=== PATIENT | male | born 1950 | race Caucasian/White ===

== ENCOUNTER 2018-03-14 19:28 | Emergency (ER) | payer OTHER, MEDICARE, MEDICAID, SELFPAY ==
[2018-03-14 19:29] VITALS: BP 149/89; PULSE 69; PULSE 71; RESP 17; RESP 18; TEMP 36.5; O2SAT 94; BMI 27.3
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
[2018-03-14 20:52] VITALS: BP 141/94; PULSE 49; RESP 18; O2SAT 95
== END 2018-03-14 20:55 | disposition home or self-care (01) ==
PROVIDERS: Emergency Provider Emergency Medicine; Family Provider Family Medicine; PCP Family Medicine
DX: S16.1XXA Strain of muscle, fascia and tendon at neck level, initial encounter (principal); S63.92XA Sprain of unspecified part of left wrist and hand, initial encounter; V59.40XA Driver of pick-up truck or van injured in collision with unspecified motor vehicles in traffic accident, initial encounter; Y93.9 Activity, unspecified; Y92.410 Unspecified street and highway as the place of occurrence of the external cause; Y99.9 Unspecified external cause status; Z72.0 Tobacco use; Z86.011 Personal history of benign neoplasm of the brain
CPT/HCPCS: 72125; 73130; 99282

== ENCOUNTER 2018-10-28 13:25 | Observation (INO) | payer MEDICARE, MEDICAID, SELFPAY ==
[2018-10-28] VITALS (11 sets, daily range): BP systolic 108–168; BP diastolic 79–98; PULSE 54–88; RESP 14–18; TEMP 36.4–36.9; O2SAT 92–98; BMI 27.3; BMI 27.4; BMI 26.1
--- NOTE | 2018-10-28 13:51 | RAD_ITS ---
STUDY: X-RAY CHEST REASON FOR EXAM: Male, 68 years old. Right arm weakness and left calf pain. Slurred speech. TECHNIQUE: Single AP portable view of the chest. COMPARISON: Comparison is made with prior study July 16, 2015. FINDINGS: EKG electrodes are seen. Scattered calcified granulomas. The lungs are clear. There is no demonstrated pleural abnormality. Normal size heart. Normal mediastinum and olivia. Normal visualized pulmonary arteries. There is atherosclerotic tortuosity of the aortic arch and descending thoracic aorta. There are diffuse degenerative changes of the visualized thoracic spine. Prior ORIF of a right midclavicular fracture. Healed left midclavicular fracture. There is no demonstrated abnormality of the visualized soft tissue structures of the upper abdomen. RAD/Chest 1 View (Portable) IMPRESSION: No acute abnormality is seen. Electronically Signed: Alvin Topete MD at 15:02 EST , Service support ,
--- NOTE | 2018-10-28 13:51 | EKG12_ITS ---
Test Reason : CP Blood Pressure : / mmHG Vent. Rate : 069 BPM Atrial Rate : 069 BPM P-R Int : 182 ms QRS Dur : 066 ms QT Int : 394 ms P-R-T Axes : 047 -02 090 degrees QTc Int : 422 ms Normal sinus rhythm Nonspecific T wave abnormality Low voltage QRS Abnormal ECG Confirmed by RAMONA SHETTY, GILDARDO ([id number]), publishing editor DAVON TUCKER ([id number]) on 10/30/2018 9:57:04 AM Referred By: TOÑA/REGINE Confirmed By:GILDARDO GREENE MD
--- NOTE | 2018-10-28 13:52 | VDLE_ITS ---
Reason For Study: pain RIGHT LEFT CFV is compressible, spontaneous, phasic, GSV is normal. competent and demonstrates normal CFV is compressible, spontaneous, phasic, augmentation. competent, and demonstrates normal Procedure augmentation. Exam performed portable in ED. FV is compressible, spontaneous, phasic, The exam was diagnostic. competent and demonstrates normal A preliminary report was called and/or faxed augmentation. to the pt's RN. POP V is compressible, spontaneous, phasic, competent and demonstrates normal augmentation. T/P Trunk is compressible. PTV is compressible. LT PerV is compressible. Interpretation Summary Deep veins of the left lower extremity are patent and compressible segmentally. There is no evidence of left lower extremity deep vein thrombosis. Valvular competence appears intact within the proximal deep venous system on the left . The left greater saphenous vein appears patent and compressible segmentally. Ordering Physician: Daphne Monaco Performed By: Coleman Banda RVT
--- NOTE | 2018-10-28 13:52 | CT_ITS ---
STUDY: CT BRAIN WITHOUT CONTRAST REASON FOR EXAM: Male, 68 years old. Right arm weakness. RADIATION DOSAGE (If Supplied By Facility): CTDIvol = ( 44.99 ) mGy, DLP = ( 745.49 ) mGycm TECHNIQUE: Transaxial CT imaging of the brain was performed without administration of intravenous contrast material. Coronal and sagittal reconstructions were performed. Individualized dose optimization techniques were used for this CT. COMPARISON: 03/11/2009. FINDINGS: Normal soft tissue structures. Left retromastoid craniectomy and cranioplasty were described previously. 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 Normal ventricles and cisterns. Normal white matter tracts of the cerebral hemispheres. Normal basal ganglia and thalami. Normal brainstem. Normal cerebellum. There is no intracranial hemorrhage. There are no findings of an acute ischemic infarction. Mucosal thickening with small air-fluid level in the left maxillary sinus suggesting acute left sinusitis. Moderate amount of mucosal thickening in the anterior ethmoid sinus. Normal right matter sinus. Normal sphenoid sinus. Small air-fluid level and mucosal thickening in the left frontal sinus. Normal right frontal sinus. CT/Brain/Head without Contrast IMPRESSION: 1. Cystic encephalomalacia along the posterior aspect of the left inferior temporal lobe gyrus is presumably postoperative. This is underneath the left retromastoid craniectomy and cranioplasty. 2. No CT evidence of intracranial bleeding or acute ischemic infarct. 3. Air-fluid levels in the left frontal sinus and left maxillary sinus and mucosal thickening in the left frontal sinus, left maxillary sinus and the anterior ethmoid sinus. They are suggestive of acute sinusitis. This is a new finding when compared to 03/11/2009. . Electronically Signed: Luis Canchola MD at 14:47 EST , Service support ,
[2018-10-28 14:21] LABS: Absolute Lymphocyte Count 2.09 X10^3/ul (0.83-4.51); Absolute Neutrophil Count 6.3 X10^3/uL (2.0-7.7); Basophil# 0.06 X10^3/uL; Basophil% 0.6 % (0-1); Eosinophil# 0.23 X10^3/uL; Eosinophils% 2.4 % (0-5); Hematocrit 42.4 % (40-54); Hemoglobin 14.8 g/dl (13.0-16.5); Lymphocyte # 2.09 X10^3/ul (4.0); Mean Corp Hgb Conc 34.9 g/gl (32-36); Mean Corpuscular Hgb 32.5 pg (27.0-32.0); Mean Corpuscular Volume 93.2 fL (80-94); Mean Platelet Vol. 9.8 fl (6.2-12.0); Monocyte# 0.77 X10^3/uL; Monocyte% 8.1 % (0-10); Neutrophil # 6.33 X10^3/uL (2.7-7.7); Neutrophil % 66.8 % (47-70); POSITIVE COUNT NO; POSITIVE DIFFERENTIAL NO; POSITIVE MORPHOLOGY NO; Platelet Count 234 K/mm3 (150-450); RBC Distribution Width CV 12.7 % (11.6-14.6); RBC Distribution Width SD 42.2 fl (35.1-43.9); Red Blood Count 4.55 M/mm3 (4.6-6.2); White Blood Count 9.5 K/mm3 (4.4-11.0)
[2018-10-28 14:32] LABS: Anion Gap 6 (5-15); BUN 19 mg/dL (7-18); BUN/Creat Ratio 19.7 RATIO (10-20); Calcium,Total 8.6 mg/dL (8.5-10.1); Chloride 108 mmol/L (98-107); Creatinine, Serum 0.96 mg/dL (0.70-1.30); EST Glomerular Filtration Rate 83 mL/min (>60); Est Glom Filt Rate - Afr Amer 100 mL/min (>60); Estimated Creatinine Clearance 65.84 ml/min; Glucose 109 mg/dL (74-106); Potassium 4.3 mmol/L (3.5-5.1); Sodium Level 142 mmol/L (136-145)
[2018-10-28] MEDS: Aspirin 81 MG TAB.CHEW 324 MG PO (14:37)
--- NOTE | 2018-10-28 14:48 | ED.VISSUMM ---
- ER Visit Summary Date of Service: 10/28/18 Chief Complaint: Chest pain, right arm weakness History of Present Illness: The patient is a 68 M presenting with right arm weakness. He states this started on Sunday. States he started having pain in his left calf and then developed right hand weakness. Right hand weakness persisted through yesterday. He states that people have been telling him that he has slurred speech since yesterday. Today he began having chest pain and shortness of breath. He is a smoker. He denies medical problems. Physical Examination: Vitals are stable. Patient is afebrile. Alert no acute distress. HEENT exam is unremarkable. Neck is supple. Lungs are clear and equal bilaterally. Heart is regular rate and rhythm. Abdomen is soft nontender nondistended. Extremities are unremarkable. Skin is warm and dry. No focal neurologic deficit. NIH 0 Remainder of exam is unremarkable. Emergency Department Course and Treatment: Patient was given aspirin on arrival. EKG is sinus rate of 69. CBC, chemistries unremarkable. Troponin is negative. Ultrasound left lower extremity shows no evidence of DVT. Chest x-ray shows no acute process. CT head shows cystic encephalomalacia along the posterior aspect of the left inferior temporal lobe gyrus is presumably postoperative. This is underneath the left retromastoid craniectomy and cranioplasty. No CT evidence of intracranial bleeding or acute ischemic infarct. Air-fluid levels in the left frontal sinus and left maxillary sinus and mucosal thickening in the left frontal sinus, left maxillary sinus and the anterior ethmoid sinus. They are suggestive of acute sinusitis. This is a new finding when compared to 03/11/2009. Patient's NIH is 0. He is currently chest pain-free. Discussed with the hospitalist for admission. Disposition: Admission Impression: Chest pain, TIA This note was generated with [employer] dictation software. It may contain incorrect words, spelling, and punctuation that were not noted in review of the chart prior to signing ED Disposition - Plan for ED Patient: Referrals: Luis Bateman III, MD [Primary Care Provider] -
--- NOTE | 2018-10-28 15:06 | NURSING ---
PCU OBS TIA, CP EMELIA
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
--- NOTE | 2018-10-28 16:13 | MRI_ITS ---
HISTORY: CVAchest pain, rt arm weakness, slurred speech since 10/26/18, prev brain [id number] aterial venous angioma TECHNIQUE: Routine non-contrast [id number] Carotid MR angiogram protocol was performed without gadolinium. 3D reconstructions were reviewed. Nascet criteria using the distal ICAs for comparison were used for evaluation of stenoses. IV Contrast dosage and agent: None. COMPARISON: None FINDINGS: # of images incl. paperwork: 535 AORTIC ARCH AND BRANCHES: Mostly obscured. RIGHT CCA: No occlusion, significant stenosis or dissection of the visualized portions, obscured proximally. RIGHT ICA: No occlusion, significant stenosis or dissection. LEFT CCA: No occlusion, significant stenosis or dissection of the visualized portions, obscured proximally. LEFT ICA: No occlusion, significant stenosis or dissection. RIGHT VERTEBRAL ARTERY: No occlusion, significant stenosis or dissection. Right dominant. LEFT VERTEBRAL ARTERY: No occlusion, significant stenosis or dissection. Left hypoplastic. No evidence of acute injury of the major arterial system of the neck. No evidence of occlusion at the visualized portions of the major arterial system of the head. MRI/MRA Neck without Contrast IMPRESSION: Negative non-contrast carotid MR angiogram. at 2009 Reported and signed by: Andre Ervin MD Electronically Signed: Andre Ervin, at 20:08 EST Tel , Service support ,
--- NOTE | 2018-10-28 16:13 | EKG12_ITS ---
Test Reason : Blood Pressure : / mmHG Vent. Rate : 057 BPM Atrial Rate : 057 BPM P-R Int : 190 ms QRS Dur : 070 ms QT Int : 430 ms P-R-T Axes : 043 000 094 degrees QTc Int : 418 ms Sinus bradycardia Nonspecific T wave abnormality Abnormal ECG Confirmed by RAMONA SHETTY, GILDARDO ([id number]), assistant film editor DAVON TUCKER ([id number]) on 10/30/2018 10:43:04 AM Referred By: GERALDO Confirmed By:GILDARDO GREENE MD
--- NOTE | 2018-10-28 16:13 | MRI_ITS ---
HISTORY: CVAchest pain, rt arm weakness, slurred speech since 10/26/18, prev brain [id number] aterial venous angioma TECHNIQUE: Multiplanar and multisequence MR images of the brain were obtained without gadolinium. IV Contrast dosage and agent: None. COMPARISON: CT brain 10/28/18. FINDINGS: # of images incl. paperwork: 278 No acute infarct, acute hemorrhage, or mass. Again demonstrated is encephalomalacia posterior aspect left middle and inferior temporal gyri with overlying chronic craniotomy. Otherwise brain volume and signal is within normal limits for age. No midline shift or hydrocephalus. Major flow voids preserved. Again demonstrated is acute on chronic appearing left frontal, ethmoid and maxillary sinusitis, and opacification of the majority of the left mastoid air cells. MRI/Brain without Contrast IMPRESSION: No acute intracranial findings. Left temporal encephalomalacia with overlying craniotomy unchanged. Again demonstrated is acute on chronic appearing left frontal, ethmoid and maxillary sinusitis, and opacification of the majority of the left mastoid air cells. at 2003 Reported and signed by: Andre Ervin MD Electronically Signed: Andre Ervin, at 20:02 EST Tel , Service support ,
[2018-10-28 16:58] LABS: Hemoglobin A1c 5.9 % (4.2-6.3)
--- NOTE | 2018-10-28 18:13 | NURSING ---
Pt down for MRI.
--- NOTE | 2018-10-28 19:48 | NURSING ---
pt just returned from MRI. will get assessment and NIH now.
[2018-10-28] MEDS: Famotidine 20 MG Tablet PO (22:23)
[2018-10-28] MEDS: Enoxaparin 40 MG/0.4 ML Syringe SC (22:23)
[2018-10-28] MEDS: Atorvastatin Calcium 80 MG Tablet PO (22:23)
[2018-10-29] VITALS (11 sets, daily range): BP systolic 121–138; BP diastolic 73–80; PULSE 52–73; RESP 16–20; TEMP 36.6–36.8; O2SAT 94–95; BMI 26.1
[2018-10-29] MEDS: 0.9% Normal Saline 1,000 ML 100 ML IV ×3 (00:03→21:43)
[2018-10-29] MEDS: Acetaminophen 325 MG Tablet 650 MG PO ×3 (04:09→16:49)
--- NOTE | 2018-10-29 05:55 | ECHOD_ITS ---
Reason For Study: TIA/CVA Procedure This was a 2D Doppler, Color Flow transthoracic echocardiogram. The exam was of adequate technical quality. Exam performed portable in patient room. Left Ventricle Normal LV size. Left ventricular systolic function is normal. The estimated ejection fraction is 65 %. No evidence for diastolic dysfunction. No regional wall motion abnormalities noted. Right Ventricle Normal RV size. Normal systolic function. Atria Normal left atrium. Normal right atrium. Faintly positive agitated saline contrast study for right to left interatrial shunt compatible with a small PFO versus ASD. Mitral Valve There is no mitral annular calcification. Normal mitral valve. Trivial mitral valve insufficiency. Tricuspid Valve Normal tricuspid valve. Trivial tricuspid valve insufficiency. Aortic Valve Trisinus/trileaflet aortic valve. Mild focal aortic valve calcification. Pulmonic Valve The pulmonic valve is not well visualized. Great Vessels Normal sized aortic root. Calcified aortic root. Pericardium/Pleural No pericardial effusion. Medication Performed a rapid injection of agitated mix of 9 cc saline and 1cc air to assess for atrial septal defect. MMode/2D Measurements & Calculations LVIDd: 3.4 cm IVSd: 1.2 cm Ao root diam: 3.6 cm LVIDs: 1.7 cm LVPWd: 1.1 cm LA dimension: 3.5 cm RVDd: 3.1 cm FS: 49.5 % LAV(MOD-bp): 49.3 ml LA A4 area: 18.0 cm2 RA A4 area: 14.3 cm2 LAV(MOD-bp) Indexed: 27.7 ml/m2 LAV(MOD-sp2): 53.5 ml LAV(MOD-sp4): 46.2 ml Time Measurements MV dec time: 0.29 sec Doppler Measurements & Calculations MV E max sebas: 69.2 cm/sec Lat Peak E' Sebas: 10.7 cm/sec Med Peak E' Sebas: 8.1 cm/sec MV A max sebas: 111.5 cm/sec E/E' lat: 6.5 E/E' med: 8.6 MV E/A: 0.62 MV V2 max: 105.9 cm/sec MV P1/2t max sebas: 96.3 cm/sec Ao V2 max: 158.9 cm/sec MV max P.5 mmHg MV P1/2t: 99.6 msec Ao max P.1 mmHg MV V2 mean: 59.5 cm/sec MV dec slope: 283.1 cm/sec2 MV mean P.6 mmHg MV V2 VTI: 38.0 cm MVA(P1/2t): 2.2 cm2 LV V1 max: 148.1 cm/sec PA V2 max: 86.7 cm/sec LV V1 max P.8 mmHg Interpretation Summary Left ventricular systolic function is normal. The estimated ejection fraction is 65 %. Trivial mitral valve insufficiency. Trivial tricuspid valve insufficiency. Mild focal aortic valve calcification. Calcified aortic root. No evidence for diastolic dysfunction. Faintly positive agitated saline contrast study for right to left interatrial shunt compatible with a small PFO versus ASD. Ordering Physician: Roberta York Referring Physician: WOODROW Bateman M.D. Performed By: Mikael Goznalez RCS
[2018-10-29 06:43] LABS: Hematocrit 39.5 % (40-54); Hemoglobin 13.7 g/dl (13.0-16.5); Mean Corp Hgb Conc 34.7 g/gl (32-36); Mean Corpuscular Hgb 32.5 pg (27.0-32.0); Mean Corpuscular Volume 93.8 fL (80-94); Mean Platelet Vol. 9.7 fl (6.2-12.0); Platelet Count 212 K/mm3 (150-450); RBC Distribution Width CV 12.4 % (11.6-14.6); RBC Distribution Width SD 41.7 fl (35.1-43.9); Red Blood Count 4.21 M/mm3 (4.6-6.2); White Blood Count 9.6 K/mm3 (4.4-11.0)
[2018-10-29 06:47] LABS: Scan Indicated on CBC? Y/N NO
[2018-10-29 07:03] LABS: AST(SGOT) 23 U/L (15-37); Alanine Aminotransfer ALT/SGPT 43 U/L (16-61); Alkaline Phosphatase 65 U/L (45-117); Anion Gap 7 (5-15); BUN 21 mg/dL (7-18); BUN/Creat Ratio 24.4 RATIO (10-20); Calcium,Total 8.1 mg/dL (8.5-10.1); Chloride 112 mmol/L (98-107); Cholesterol 102 mg/dL (200); Creatinine, Serum 0.86 mg/dL (0.70-1.30); EST Glomerular Filtration Rate 95 mL/min (>60); Est Glom Filt Rate - Afr Amer 115 mL/min (>60); Globulin 2.9 g/dL (2.2-4.2); Glucose 106 mg/dL (74-106); High Density Lipoprotein 25 mg/dL; Potassium 3.9 mmol/L (3.5-5.1); Protein, Total 5.9 g/dL (6.4-8.2); Sodium Level 144 mmol/L (136-145); Thyroid Stim Hormone (TSH) 2.53 uIU/mL (0.358-3.74); Triglycerides 137 mg/dL; Very Low Density Lipoprotein 27 mg/dL (5-40)
[2018-10-29] MEDS: Aspirin E.C. 81 MG Tablet PO (08:10)
[2018-10-29] MEDS: Famotidine 20 MG Tablet PO ×2 (10:10→21:41)
[2018-10-29] MEDS: Enoxaparin 40 MG/0.4 ML Syringe SC (10:10)
--- NOTE | 2018-10-29 14:06 | MRI_ITS ---
HISTORY: RUE NUMBNESS AND TINGLING, WEAKNESS EXAM/TECHNIQUE: MR Spine Cervical W/O Contrast: COMPARISON: CT cervical spine 03/14/18. FINDINGS: # of images incl. paperwork: 232 No fracture or acute signal changes in the vertebrae. Normal signal of the cervical spinal cord. Mild 2 mm degenerative anterolisthesis of C4 on C5 unchanged. Alignment otherwise anatomic. Multilevel prominent disc and left C2-5 facet degeneration similar to prior. At C2-3, disc osteophyte complex and degenerative buckling of ligamentum flavum cause only mild narrowing. At C3-4, disc osteophyte complex and degenerative buckling of the ligamentum flavum causes only mild spinal canal narrowing. Uncovertebral joint greater than facet osteophytes cause high-grade left and mild right foraminal narrowing. At C4-5, mild degenerative anterolisthesis causes only mild spinal canal narrowing. Left uncovertebral joint and facet osteophytes cause high-grade left foraminal narrowing. Only mild right foraminal narrowing. At C5-6, small disc osteophyte complex causes mild spinal canal narrowing. Uncovertebral and facet joint osteophytes cause high-grade right and moderate left foraminal narrowing. At C6-7, small disc osteophyte complex causes only mild spinal canal and bilateral foraminal narrowing. At C7-T1, diffuse disc bulge causes only mild spinal canal and bilateral foraminal narrowing. MRI/Spine Cervical (Routine) IMPRESSION: High-grade right foraminal narrowing at C5-6. If there is right C6 radiculopathy this might be the cause. Otherwise foraminal narrowing is more prominent on the left as outlined above. at 0124 Reported and signed by: Andre Ervin MD Electronically Signed: Andre Ervin, at 1:23 EST Tel , Service support ,
--- NOTE | 2018-10-29 14:15 | CON.PCM_ITS ---
Problem List (1) Right hand weakness Status: Acute Reason for Consult Date of Consultation: 10/29/18 Reason for Consultation: Right hand weakness History of Present Illness: The patient is a 68 year old M with PMH AV angioma s/p craniotomy in 1996, migraine, tobacco abuse admitted with right hand/arm weakness. Per patient when he was sleeping Sunday morning (10/27/18) when he had Aaron horse in the left leg and he woke up and found his right hand was weak, he could not hold objects with the right hand, but denied any facial weakness, or leg weakness, denies any dizziness, visual disturbance or sensory loss. He was told that he may have had some slurred speech but he did not think he had slurred speech. He lives alone, does drive, denies any frequent falls. Per patient his right hand weakness has been improving but still is not back to baseline. He complaints of neck pain but denies any radicular symptoms, per patient he had kyphoplasty and fractures in the lower back in the past. Denies any urinary incontinence. MRI brain done on admission did not show any acute stroke, reported to show left temporal encephalomalacia with overlying craniotomy from previous surgery, MRA head/neck did not show any hemodynamically significant stenosis or occlusion. [] Past Medical History Past Medical History (Chronic Problems): Chronic Problems Tobacco use (Chronic) Angioma (Chronic) Allergies codeine Allergy (Verified 10/28/18 13:26) Hives hydrocodone bitartrate [From Vicodin] Allergy (Verified 10/28/18 13:26) Hives Home Medications: Ambulatory Orders Medication Instructions Recorded NK 10/28/18 Surgical History: - - Craniotomy for resection of angioma, right collar bone surgery x3. 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 Drugs: None - *Family History Maternal History Items: - - Patient notes that his mother and father lived into their 90s and were relatively healthy with no history of diabetes, heart disease, cancer. Paternal History Items: - - Patient notes that his mother and father lived into their 90s and were relatively healthy with no history of diabetes, heart disease, cancer. Review of Systems Constitutional: Reports: - - Complete ROS negative except as documented in HPI Patient Problems: Active and Suspected Problems TIA (transient ischemic attack) (Acute) Chest pain (Acute) Right hand weakness (Acute) - Physical Exam General: Alert HEENT: Normocephalic Neck: Supple Lungs: Normal air movement Cardiovascular: Normal S1, Normal S2 Abdomen: Bowel Sounds Present Extremities: No cyanosis Neurological: - - consious, alert, AoAx3, CN 2-12 grossly intact, power 5/5 left UE/LE, right LE, 5/5 right proximal flexion/extension 5/5, elbow extension/flexion 5/5, wrist flexion/extension 4/5, distal small muscle of hand weakness, 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, 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/L 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, reflexes + B/L B/S/T/K/A, gait deferred Psych/Mental Status: Normal Affect Vital Signs Temp Pulse Resp BP Pulse Ox 97.9 F 62 16 131/77 H 94 10/29/18 08:00 10/29/18 10:41 10/29/18 08:00 10/29/18 08:00 10/29/18 11:00 Oxygen Delivery Method Room Air Weight: 71.1 kg Body Mass Index (BMI) 26.1 Intake and Output for Last 24 Hours 10/27/18 10/28/18 10/29/18 23:59 23:59 23:59 Intake Total 240 / 240 1602 / 1602 Output Total 650 / 650 Balance 240 / 240 952 / 952 Laboratory Tests Past 24 Hrs 10/28/18 10/28/18 10/28/18 14:00 14:00 14:00 WBC 9.5 RBC 4.55 L Hgb 14.8 Hct 42.4 MCV 93.2 MCH 32.5 H MCHC 34.9 RDW 12.7 RDW Differential 42.2 Plt Count 234 MPV 9.8 Immature Gran % (Auto) 0.100 Neut % (Auto) 66.8 Lymph % (Auto) 22.0 Pershing % (Auto) 8.1 Eos % (Auto) 2.4 Baso % (Auto) 0.6 Absolute Neuts (auto) 6.3 Absolute Lymphs (auto) 2.09 Total Counted Not Reportable Sodium 142 Potassium 4.3 Chloride 108 H Carbon Dioxide 28.0 Anion Gap 6 BUN 19 H Creatinine 0.96 Estim Creat Clear Calc 65.84 Est GFR (MDRD) Af Amer 100 Est GFR (MDRD) Non-Af 83 BUN/Creatinine Ratio 19.7 Glucose 109 H Hemoglobin A1c Calcium 8.6 Magnesium 2.0 Total Bilirubin AST ALT Alkaline Phosphatase Troponin I < 0.015 Total Protein Albumin Globulin Albumin/Globulin Ratio Triglycerides Cholesterol LDL Cholesterol VLDL Cholesterol HDL Cholesterol TSH 10/28/18 10/28/18 10/28/18 14:00 17:00 19:50 WBC RBC Hgb Hct MCV MCH MCHC RDW RDW Differential Plt Count MPV Immature Gran % (Auto) Neut % (Auto) Lymph % (Auto) Pershing % (Auto) Eos % (Auto) Baso % (Auto) Absolute Neuts (auto) Absolute Lymphs (auto) Total Counted Sodium Potassium Chloride Carbon Dioxide Anion Gap BUN Creatinine Estim Creat Clear Calc Est GFR (MDRD) Af Amer Est GFR (MDRD) Non-Af BUN/Creatinine Ratio Glucose Hemoglobin A1c 5.9 Calcium Magnesium Total Bilirubin AST ALT Alkaline Phosphatase Troponin I < 0.015 < 0.015 Total Protein Albumin Globulin Albumin/Globulin Ratio Triglycerides Cholesterol LDL Cholesterol VLDL Cholesterol HDL Cholesterol TSH 10/29/18 10/29/18 06:10 06:10 WBC 9.6 RBC 4.21 L Hgb 13.7 Hct 39.5 L MCV 93.8 MCH 32.5 H MCHC 34.7 RDW 12.4 RDW Differential 41.7 Plt Count 212 MPV 9.7 Immature Gran % (Auto) Neut % (Auto) Lymph % (Auto) Pershing % (Auto) Eos % (Auto) Baso % (Auto) Absolute Neuts (auto) Absolute Lymphs (auto) Total Counted Sodium 144 Potassium 3.9 Chloride 112 H Carbon Dioxide 25.0 Anion Gap 7 BUN 21 H Creatinine 0.86 Estim Creat Clear Calc 73.50 Est GFR (MDRD) Af Amer 115 Est GFR (MDRD) Non-Af 95 BUN/Creatinine Ratio 24.4 H Glucose 106 Hemoglobin A1c Calcium 8.1 L Magnesium Total Bilirubin 0.40 AST 23 ALT 43 Alkaline Phosphatase 65 Troponin I Total Protein 5.9 L Albumin 3.0 L Globulin 2.9 Albumin/Globulin Ratio 1.0 Triglycerides 137 Cholesterol 102 LDL Cholesterol 50 VLDL Cholesterol 27 HDL Cholesterol 25 L TSH 2.53 Assessment/Plan All Active Problems TIA (transient ischemic attack) (Acute) Chest pain (Acute) Right hand weakness (Acute) The patient is a 68 year old M with PMH AV angioma s/p craniotomy in 1996, migraine, tobacco abuse admitted with right hand/arm weakness. Per patient when he was sleeping Sunday morning (10/27/18) when he had Aaron horse in the left leg and he woke up and found his right hand was weak, he could not hold objects with the right hand, but denied any facial weakness, or leg weakness, denies any dizziness, visual disturbance or sensory loss. He was told that he may have had some slurred speech but he did not think he had slurred speech. He lives alone, does drive, denies any frequent falls. Per patient his right hand weakness has been improving but still is not back to baseline. He complaints of neck pain but denies any radicular symptoms, per patient he had kyphoplasty and fractures in the lower back in the past. Denies any urinary incontinence. MRI brain done on admission did not show any acute stroke, reported to show left temporal encephalomalacia with overlying craniotomy from previous surgery, MRA head/neck did not show any hemodynamically significant stenosis or occlusion Impression Right hand weakness- r/o peripheral etiology Plan -MRI brain and MRA head/neck reviewed -Check MRI C spine w/o contrast and MRI Brachial plexus w/w/o contrast -EMG/NCS right UE in 3-4 weeks -Physical therapy for right hand weakness -Fall precautions -Further medical management -Follow up with Neurology in 3-4 weeks -Please call with questions if any -Thank you for allowing us to participate in patient's care and management Code Visit Inpatient E&M: [id number] Init Hosp L3
--- NOTE | 2018-10-29 14:48 | MRI_ITS ---
HISTORY: RUE NUMBNESS AND TINGLING, WEAKNESS EXAM/TECHNIQUE: MR Brachial Plexus WO/W Contrast: 7 cc Gadavist administered intravenously. COMPARISON: Chest radiograph 10/28/18. CT cervical spine 03/14/18. FINDINGS: # of images incl. paperwork: 264 Normal contour and signal of the right brachial plexus. No abnormal and in spine or evidence of mass. Status post right clavicle ORIF. Please see MRI cervical spine report dictated separately. MRI/Chest W/WO Contrast IMPRESSION: No etiology for right upper extremity symptoms identified in the brachial plexus. at 0113 Reported and signed by: Andre Ervin MD Electronically Signed: Andre Ervin, at 1:12 EST Tel , Service support ,
--- NOTE | 2018-10-29 15:34 | CASEMGMT ---
Per Dr. Kaplan, pt to be set up with OP therapy at this time and pt will most likely be discharged today. Referral to [facility] at this time and this RN CM to room to speak with pt regarding OP therapy and to have [facility]WE[facility] form signed at this time and pt is out of the dept for testing at this time. This RN CM gave OP therapy order to Sandy RN at this time, voices understanding and states she will give to pt when he returns. SStnorman HERNANDEZ CM
[2018-10-29] MEDS: Atorvastatin Calcium 80 MG Tablet PO (21:41)
[2018-10-30] VITALS (7 sets, daily range): BP systolic 136–158; BP diastolic 85–91; PULSE 54–67; RESP 16–18; TEMP 36.3–36.9; O2SAT 94
[2018-10-30] MEDS: 0.9% Normal Saline 1,000 ML 100 ML IV (06:50)
[2018-10-30] MEDS: Enoxaparin 40 MG/0.4 ML Syringe SC (09:24)
[2018-10-30] MEDS: Aspirin E.C. 81 MG Tablet PO (09:24)
[2018-10-30] MEDS: Famotidine 20 MG Tablet PO (09:25)
--- NOTE | 2018-10-30 10:13 | DCINST_ITS ---
- Discharge Diagnoses Current Active Problems: Current Active and Chronic Problems TIA (transient ischemic attack) (Acute) Chest pain (Acute) Tobacco use (Chronic) Angioma (Chronic) Right hand weakness (Acute) You will use the following diet at home:: No restrictions Your food should be the consistency of: Regular Your liquids should be the consistency of: Regular/Thin Discharge Activity: No Restrictions Call your doctor if you observe: Fever of 101 or Higher, - - increasing weakness of the R arm, uncontrollable pain R arm. Instructions: ED Cervical Radiculopathy Additional Instructions: You have a pinched nerve in your neck that is causing the weakness and the numbness in the R arm. You have a lot af arthritis in the spine and bone spurs. I have started you on Prednisone which is a steroid. Steroids are powerful anti-inflammatories and can redeuce the swelling around the nerve root and hopefully improve your symptoms somewhat. You will take the prednisone for a period of 10 days and then stop. If the pain/weakness/numbness recur then you may be a candidate for an epidural injection of steroids.......this shot can last for 3 months. I have also started you on a medication called Meloxicam which is an anti-inflammatory. You will take the Meloxicam once daily with food and I have given you a prescription for 1 months worth. I recommend you follow up with a neurosurgeon or a orthopedic surgeon who works on the cervical spine to be evaluated for possible surgery IF the weakness does not improve or gets worse..........If the weakness goes on for more than 6 weeks you may not get all the strength back. We are referring you for Physical therapy and occupational therapy to help you. The [facility] does a lot of spine surgeries. You may need a referral from your primary care doctor. Allergies/Adverse Reactions: Allergies codeine Allergy (Verified 10/28/18 13:26) Hives hydrocodone bitartrate [From Vicodin] Allergy (Verified 10/28/18 13:26) Hives Medications to take at Discharge Meloxicam [Mobic] 15 mg PO DAILY #30 tablet 10/30/18 predniSONE tablet 60 mg PO DAILY@0800 #27 tablet 10/30/18 The following prescriptions were given: Meloxicam [Mobic] 15 mg PO DAILY #30 tablet predniSONE tablet 60 mg PO DAILY@0800 #27 tablet Primary Care Physician: Luis Bateman III, MD [Primary Care Provider] - Please follow up with your Primary Care Physician in: 7 days Test Results: Test results from this visit will be discussed in further detail at your follow- up appointment, if applicable.
--- NOTE | 2018-10-30 10:14 | PCM.DC.SUM ---
Discharge Date and Diagnosis Date of Admission: 10/28/18 Date of Discharge: 10/30/18 - Primary Discharge Diagnosis Active and Suspected Problems TIA (transient ischemic attack) (Acute)- ruled out Acute Radiculopathy RUE due to impingement at C5-C6 on the right Chest pain (Acute) - Secondary Discharge Diagnosis Chronic Problems Tobacco use (Chronic) Angioma (Chronic) - S/P craniotomy ? small PFO or ASD Hospital Course and Treatment Imaging Results: Clinical Impression(s) from Imaging Studies Chest X-Ray 10/28/18 13:51 IMPRESSION: No acute abnormality is seen. Electronically Signed: Alvin Topete MD at 15:02 EST , Service support , Brain CT 10/28/18 13:52 IMPRESSION: 1. Cystic encephalomalacia along the posterior aspect of the left inferior temporal lobe gyrus is presumably postoperative. This is underneath the left retromastoid craniectomy and cranioplasty. 2. No CT evidence of intracranial bleeding or acute ischemic infarct. 3. Air-fluid levels in the left frontal sinus and left maxillary sinus and mucosal thickening in the left frontal sinus, left maxillary sinus and the anterior ethmoid sinus. They are suggestive of acute sinusitis. This is a new finding when compared to 03/11/2009. . Electronically Signed: Luis Canchola MD at 14:47 EST , Service support , Brain MRI 10/28/18 16:13 IMPRESSION: No acute intracranial findings. Left temporal encephalomalacia with overlying craniotomy unchanged. Again demonstrated is acute on chronic appearing left frontal, ethmoid and maxillary sinusitis, and opacification of the majority of the left mastoid air cells. at 2003 Reported and signed by: Andre Ervin MD Electronically Signed: Andre Ervin, at 20:02 EST Tel , Service support , Head MRA 10/28/18 16:13 IMPRESSION: Unremarkable MRA head. at 2006 Reported and signed by: Andre Ervin MD Electronically Signed: Andre Ervin, at 20:05 EST Tel , Service support , ADDENDUM: 10/29/18 1509 IMPRESSION: Normal MRA of the head Electronically Signed: Luis Canchola MD at 15:02 EST , Service support , Neck MRA 10/28/18 16:13 IMPRESSION: Negative non-contrast carotid MR angiogram. at 2009 Reported and signed by: Andre Ervin MD Electronically Signed: Andre Ervin, at 20:08 EST Tel , Service support , Cervical Spine MRI 10/29/18 14:06 IMPRESSION: High-grade right foraminal narrowing at C5-6. If there is right C6 radiculopathy this might be the cause. Otherwise foraminal narrowing is more prominent on the left as outlined above. at 0124 Reported and signed by: Andre Ervin MD Electronically Signed: Andre Ervin, at 1:23 EST Tel , Service support , Chest MRI 10/29/18 14:48 IMPRESSION: No etiology for right upper extremity symptoms identified in the brachial plexus. at 0113 Reported and signed by: Andre Ervin MD Electronically Signed: Andre Ervin, at 1:12 EST Tel , Service support , Dr. Gee-neurology Operations: None Procedures: 2-D Echocardiogram - Interpretation Summary Left ventricular systolic function is normal. The estimated ejection fraction is 65 %. Trivial mitral valve insufficiency. Trivial tricuspid valve insufficiency. Mild focal aortic valve calcification. Calcified aortic root. No evidence for diastolic dysfunction. Faintly positive agitated saline contrast study for right to left interatrial shunt compatible with a small PFO versus ASD. Summary of Care Provided: The patient is a 68-year-old man with a history of craniotomy for AV angioma in 1996 and tobacco dependence resented to the emergency department at [facility] on 10/28/2018 complaining of right upper extremity weakness and midsternal chest pressure the previous evening. See if CT of the brain in the emergency department showed encephalomalacia secondary to prior surgery but was otherwise unremarkable. NIH in the emergency department was 0. EKG revealed no suspicious ST or T wave changes and the troponin was within normal limits. He was admitted to a monitored bed on PCU for evaluation for TIA and chest pain. Brain MRI showed no acute intracranial findings. MRA of the head and neck were negative. Ultrasound of the lower extremities was negative for DVT. Echocardiogram showed normal wall motion with an ejection fraction of 65% and no significant valvular heart disease. There was no evidence of diastolic dysfunction. There was a faintly positive agitated saline contrast study for right to left intra-atrial shunt compatible with a small PFO versus ASD. The weakness in the right upper extremity improved somewhat during the admission however since the W/U for CVA was negative Dr. Gee was consulted and he ordered a MRI of the brachial plexus and the cervical spine. The brachial plexus MRI was unremarkable. The MRI of the cervical spine showed high-grade right foraminal narrowing at C5-6. He was given a RX for Meloxicam and Prednisone and was referred for OP PT at [facility]. He will follow up with Dr. Luis Bateman in 7 days in the office. If the Prednisone is effective he may benefit from a referral to pain management for an epidural. He had no CP in the hospital and telemetry showed no significant dysrhythmia/ectopy. If his chest pain recurs he can be referred for an outpatient stress test. - Physical Exam General: Alert, Oriented x3, Cooperative, No apparent distress HEENT: Atraumatic, PERRLA, EOMI, Normocephalic Oral: Moist Mucosa Neck: Supple, Negative Carotid Bruits, No Nodes, No Nuchal Rigidity, Trachea Midline Lungs: Clear to auscultation Cardiovascular: Regular rate, Regular Rhythm, Normal S1, Normal S2, No Ectopic Activity, No rub noted, No Gallop Abdomen: Bowel Sounds Present, Soft, Non Tender, Non-Distended Extremities: No clubbing, No cyanosis, No edema Skin: No rashes, No breakdown Neurological: Cranial nerves II-XII grossly intact, - - decreased floor assembler strength R hand and also decreased ability to extend the wrist Psych/Mental Status: Appropriate - Physical Exam Vital Signs Temp Pulse Resp BP Pulse Ox 97.7 F L 58 L 18 142/85 H 94 10/30/18 05:10 10/30/18 07:58 10/30/18 05:10 10/30/18 05:10 10/30/18 07:23 Oxygen Delivery Method Room Air Weight: 156 lb 11.979 oz Body Mass Index (BMI) 26.1 Intake and Output for Last 24 Hours 10/28/18 10/29/18 10/30/18 23:59 23:59 23:59 Intake Total 240 / 240 3695 / 3695 857 / 857 Output Total 1250 / 1250 895 / 895 Balance 240 / 240 2445 / 2445 -38 / -38 Discharge Activity: No Restrictions Call your doctor if you observe: Fever of 101 or Higher, - - increasing weakness of the R arm, uncontrollable pain R arm. Home Medications: Medications to take at Discharge Meloxicam [Mobic] 15 mg PO DAILY #30 tablet 10/30/18 predniSONE tablet 60 mg PO DAILY@0800 #27 tablet 10/30/18 Following Prescrptions Were Given to Patient: Meloxicam [Mobic] 15 mg PO DAILY #30 tablet predniSONE tablet 60 mg PO DAILY@0800 #27 tablet Primary Care Physician: Luis Bateman III, MD [Primary Care Provider] - Please follow up with your Primary Care Physician in: 7 days Patient Instructions: ED Cervical Radiculopathy Disposition: Home Minutes spent on discharge:: 30 Patient Condition:: Stable Medical Necessity - Tobacco Use Smoking Status: Current every day smoker Tobacco Use: Cigarettes Meaningful Use Info Meaningful Use Diagnoses (Choose all that apply): None applicable Code Visit OBSV E&M: 65479 Observation care discharge
--- NOTE | 2018-10-30 10:19 | DS.PCM_ITS ---
Discharge Date and Diagnosis Date of Admission: 10/28/18 Date of Discharge: 10/30/18 - Primary Discharge Diagnosis Active and Suspected Problems TIA (transient ischemic attack) (Acute)- ruled out Acute Radiculopathy RUE due to impingement at C5-C6 on the right Chest pain (Acute) - Secondary Discharge Diagnosis Chronic Problems Tobacco use (Chronic) Angioma (Chronic) - S/P craniotomy ? small PFO or ASD Hospital Course and Treatment Imaging Results: Clinical Impression(s) from Imaging Studies Chest X-Ray 10/28/18 13:51 IMPRESSION: No acute abnormality is seen. Electronically Signed: Alvin Topete MD at 15:02 EST , Service support , Brain CT 10/28/18 13:52 IMPRESSION: 1. Cystic encephalomalacia along the posterior aspect of the left inferior temporal lobe gyrus is presumably postoperative. This is underneath the left retromastoid craniectomy and cranioplasty. 2. No CT evidence of intracranial bleeding or acute ischemic infarct. 3. Air-fluid levels in the left frontal sinus and left maxillary sinus and mucosal thickening in the left frontal sinus, left maxillary sinus and the anterior ethmoid sinus. They are suggestive of acute sinusitis. This is a new finding when compared to 03/11/2009. . Electronically Signed: Luis Canchola MD at 14:47 EST , Service support , Brain MRI 10/28/18 16:13 IMPRESSION: No acute intracranial findings. Left temporal encephalomalacia with overlying craniotomy unchanged. Again demonstrated is acute on chronic appearing left frontal, ethmoid and maxillary sinusitis, and opacification of the majority of the left mastoid air cells. at 2003 Reported and signed by: Andre Ervin MD Electronically Signed: Andre Ervin, at 20:02 EST Tel , Service support , Head MRA 10/28/18 16:13 IMPRESSION: Unremarkable MRA head. at 2006 Reported and signed by: Andre Ervin MD Electronically Signed: Andre Ervin, at 20:05 EST Tel , Service support , ADDENDUM: 10/29/18 1509 IMPRESSION: Normal MRA of the head Electronically Signed: Luis Canchola MD at 15:02 EST , Service support , Neck MRA 10/28/18 16:13 IMPRESSION: Negative non-contrast carotid MR angiogram. at 2009 Reported and signed by: Andre Ervin MD Electronically Signed: Andre Ervin, at 20:08 EST Tel , Service support , Cervical Spine MRI 10/29/18 14:06 IMPRESSION: High-grade right foraminal narrowing at C5-6. If there is right C6 radiculopathy this might be the cause. Otherwise foraminal narrowing is more prominent on the left as outlined above. at 0124 Reported and signed by: Andre Ervin MD Electronically Signed: Andre Ervin, at 1:23 EST Tel , Service support , Chest MRI 10/29/18 14:48 IMPRESSION: No etiology for right upper extremity symptoms identified in the brachial plexus. at 0113 Reported and signed by: Andre Ervin MD Electronically Signed: Andre Ervin, at 1:12 EST Tel , Service support , Dr. Gee-neurology Operations: None Procedures: 2-D Echocardiogram - Interpretation Summary Left ventricular systolic function is normal. The estimated ejection fraction is 65 %. Trivial mitral valve insufficiency. Trivial tricuspid valve insufficiency. Mild focal aortic valve calcification. Calcified aortic root. No evidence for diastolic dysfunction. Faintly positive agitated saline contrast study for right to left interatrial shunt compatible with a small PFO versus ASD. Summary of Care Provided: The patient is a 68-year-old man with a history of craniotomy for AV angioma in 1996 and tobacco dependence resented to the emergency department at [facility] on 10/28/2018 complaining of right upper extremity weakness and midsternal chest pressure the previous evening. See if CT of the brain in the emergency department showed encephalomalacia secondary to prior surgery but was otherwise unremarkable. NIH in the emergency department was 0. EKG revealed no suspicious ST or T wave changes and the troponin was within normal limits. He was admitted to a monitored bed on PCU for evaluation for TIA and chest pain. Brain MRI showed no acute intracranial findings. MRA of the head and neck were negative. Ultrasound of the lower extremities was negative for DVT. Echocardiogram showed normal wall motion with an ejection fraction of 65% and no significant valvular heart disease. There was no evidence of diastolic dysfunction. There was a faintly positive agitated saline contrast study for right to left intra-atrial shunt compatible with a small PFO versus ASD. The weakness in the right upper extremity improved somewhat during the admission however since the W/U for CVA was negative Dr. Gee was consulted and he ordered a MRI of the brachial plexus and the cervical spine. The brachial plexus MRI was unremarkable. The MRI of the cervical spine showed high-grade right foraminal narrowing at C5-6. He was given a RX for Meloxicam and Prednisone and was referred for OP PT at [facility]. He will follow up with Dr. Luis Bateman in 7 days in the office. If the Prednisone is effective he may benefit from a referral to pain management for an epidural. He had no CP in the hospital and telemetry showed no significant dysrhythmia/ectopy. If his chest pain recurs he can be referred for an outpatient stress test. - Physical Exam General: Alert, Oriented x3, Cooperative, No apparent distress HEENT: Atraumatic, PERRLA, EOMI, Normocephalic Oral: Moist Mucosa Neck: Supple, Negative Carotid Bruits, No Nodes, No Nuchal Rigidity, Trachea Midline Lungs: Clear to auscultation Cardiovascular: Regular rate, Regular Rhythm, Normal S1, Normal S2, No Ectopic Activity, No rub noted, No Gallop Abdomen: Bowel Sounds Present, Soft, Non Tender, Non-Distended Extremities: No clubbing, No cyanosis, No edema Skin: No rashes, No breakdown Neurological: Cranial nerves II-XII grossly intact, - - decreased seat cover cutter strength R hand and also decreased ability to extend the wrist Psych/Mental Status: Appropriate - Physical Exam Vital Signs Temp Pulse Resp BP Pulse Ox 97.7 F L 58 L 18 142/85 H 94 10/30/18 05:10 10/30/18 07:58 10/30/18 05:10 10/30/18 05:10 10/30/18 07:23 Oxygen Delivery Method Room Air Weight: 156 lb 11.979 oz Body Mass Index (BMI) 26.1 Intake and Output for Last 24 Hours 10/28/18 10/29/18 10/30/18 23:59 23:59 23:59 Intake Total 240 / 240 3695 / 3695 857 / 857 Output Total 1250 / 1250 895 / 895 Balance 240 / 240 2445 / 2445 -38 / -38 Discharge Activity: No Restrictions Call your doctor if you observe: Fever of 101 or Higher, - - increasing weakness of the R arm, uncontrollable pain R arm. Home Medications: Medications to take at Discharge Meloxicam [Mobic] 15 mg PO DAILY #30 tablet 10/30/18 predniSONE tablet 60 mg PO DAILY@0800 #27 tablet 10/30/18 Following Prescrptions Were Given to Patient: Meloxicam [Mobic] 15 mg PO DAILY #30 tablet predniSONE tablet 60 mg PO DAILY@0800 #27 tablet Primary Care Physician: Luis Bateman III, MD [Primary Care Provider] - Please follow up with your Primary Care Physician in: 7 days Patient Instructions: ED Cervical Radiculopathy Disposition: Home Minutes spent on discharge:: 30 Patient Condition:: Stable Medical Necessity - Tobacco Use Smoking Status: Current every day smoker Tobacco Use: Cigarettes Meaningful Use Info Meaningful Use Diagnoses (Choose all that apply): None applicable Code Visit OBSV E&M: 62917 Observation care discharge
--- NOTE | 2018-10-30 10:20 | PCM.PROGNOTE ---
Subjective: Late entry for Reviewed the H&P. Pt admitted for possible TIA. CTB negative at admission and the MRI brain is negative for CVA. He complains of persistent numbness and weakness of the RUE. This started suddenly on Sunday. 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 Tells me that he frequently has neck pain. Denies any chest pain the the CE's were negative. All events of the past 24 hours have been reviewed. Afebrile with stable VS's. Denies COLE, no other neurologic complaints No hx of CTS. No recent injuries to the neck and has not been working above his head where he would have had prolonged neck extension - Physical Exam General: Alert, Oriented x3, Cooperative, No apparent distress HEENT: Atraumatic, PERRLA, EOMI, Normocephalic Oral: Moist Mucosa Neck: Supple, Negative Carotid Bruits, No Nodes, No Nuchal Rigidity, Trachea Midline Lungs: Clear to auscultation Cardiovascular: Regular rate, Regular Rhythm, Normal S1, Normal S2, No Ectopic Activity, No rub noted, No Gallop Abdomen: Bowel Sounds Present, Soft, Non Tender, Non-Distended Extremities: No clubbing, No cyanosis, No edema Skin: No rashes, No breakdown Neurological: Cranial nerves II-XII grossly intact, - - decreased construction job titles strength R hand and also decreased ability to extend the wrist Psych/Mental Status: Appropriate Vital Signs Temp Pulse Resp BP Pulse Ox 97.7 F L 58 L 18 142/85 H 94 10/30/18 05:10 10/30/18 07:58 10/30/18 05:10 10/30/18 05:10 10/30/18 07:23 Oxygen Delivery Method Room Air Weight: 156 lb 11.979 oz Body Mass Index (BMI) 26.1 Intake and Output for Last 24 Hours 10/28/18 10/29/18 10/30/18 23:59 23:59 23:59 Intake Total 240 / 240 3695 / 3695 857 / 857 Output Total 1250 / 1250 895 / 895 Balance 240 / 240 2445 / 2445 -38 / -38 Medical Necessity - Tobacco Use Smoking Status: Current every day smoker Tobacco Use: Cigarettes Assessment/Plan All Active Problems TIA (transient ischemic attack) (Acute) Chest pain (Acute) Right hand weakness (Acute) Impressions 1. sudden onset of weakness and numbness of the RUE with a negative MRI of the brain. Likely has a peripheral nerve problem. 2. TIA-ruled out 3. Chest pain-atypical. negative troponin and an unremarkable EKG....had continuous pain in the upper chest ( R and L) for 2 days. 4. Hx of a cerebral angioma - S/P craniotomy with resulting encephalomalacia 5. Tobacco dependence consult Dr. Gee Code Visit Inpatient E&M: 68218 Subs Hosp L2
--- NOTE | 2018-10-30 10:24 | PN_ITS ---
Subjective: Late entry for Reviewed the H&P. Pt admitted for possible TIA. CTB negative at admission and the MRI brain is negative for CVA. He complains of persistent numbness and weakness of the RUE. This started suddenly on Sunday. 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 Tells me that he frequently has neck pain. Denies any chest pain the the CE's were negative. All events of the past 24 hours have been reviewed. Afebrile with stable VS's. Denies COLE, no other neurologic complaints No hx of CTS. No recent injuries to the neck and has not been working above his head where he would have had prolonged neck extension - Physical Exam General: Alert, Oriented x3, Cooperative, No apparent distress HEENT: Atraumatic, PERRLA, EOMI, Normocephalic Oral: Moist Mucosa Neck: Supple, Negative Carotid Bruits, No Nodes, No Nuchal Rigidity, Trachea Midline Lungs: Clear to auscultation Cardiovascular: Regular rate, Regular Rhythm, Normal S1, Normal S2, No Ectopic Activity, No rub noted, No Gallop Abdomen: Bowel Sounds Present, Soft, Non Tender, Non-Distended Extremities: No clubbing, No cyanosis, No edema Skin: No rashes, No breakdown Neurological: Cranial nerves II-XII grossly intact, - - decreased analysis or research safety inspector strength R hand and also decreased ability to extend the wrist Psych/Mental Status: Appropriate Vital Signs Temp Pulse Resp BP Pulse Ox 97.7 F L 58 L 18 142/85 H 94 10/30/18 05:10 10/30/18 07:58 10/30/18 05:10 10/30/18 05:10 10/30/18 07:23 Oxygen Delivery Method Room Air Weight: 156 lb 11.979 oz Body Mass Index (BMI) 26.1 Intake and Output for Last 24 Hours 10/28/18 10/29/18 10/30/18 23:59 23:59 23:59 Intake Total 240 / 240 3695 / 3695 857 / 857 Output Total 1250 / 1250 895 / 895 Balance 240 / 240 2445 / 2445 -38 / -38 Medical Necessity - Tobacco Use Smoking Status: Current every day smoker Tobacco Use: Cigarettes Assessment/Plan All Active Problems TIA (transient ischemic attack) (Acute) Chest pain (Acute) Right hand weakness (Acute) Impressions 1. sudden onset of weakness and numbness of the RUE with a negative MRI of the brain. Likely has a peripheral nerve problem. 2. TIA-ruled out 3. Chest pain-atypical. negative troponin and an unremarkable EKG....had continuous pain in the upper chest ( R and L) for 2 days. 4. Hx of a cerebral angioma - S/P craniotomy with resulting encephalomalacia 5. Tobacco dependence consult Dr. Gee Code Visit Inpatient E&M: 44965 Subs Hosp L2
--- NOTE | 2018-10-30 10:59 | CASEMGMT ---
This MARY GLYNN to room with MAXWELL form at this time, explanation done-pt voices understanding, and pt signed form at this time. Pt voices no further questions/concerns/needs at this time. Original to chart and copy to pt at this time. Leilani HERNANDEZ CM
--- NOTE | 2018-10-30 11:02 | CASEMGMT ---
Pt has order for OP therapy already and order was faxed to [facility] previously. Pt is waiting to be seen by Dr. Kaplan at this time. SStnorman HERNANDEZ CM
[2018-10-30] MEDS: predniSONE 20 MG Tablet 60 MG PO (11:45)
[2018-10-30] MEDS: Meloxicam 15 MG Tablet PO (11:54)
== END 2018-10-30 10:14 | disposition home or self-care (01) ==
LOC: ED 15:51 → PCU 15:53
PROVIDERS: Admitting Provider Family Medicine; Emergency Provider Emergency Medicine; Family Provider Family Medicine; PCP Family Medicine; Visit Provider Internal Medicine
DX: R07.89 Other chest pain (principal); M54.12 Radiculopathy, cervical region; R47.81 Slurred speech; R06.02 Shortness of breath; R29.700 NIHSS score 0; D18.02 Hemangioma of intracranial structures; F17.210 Nicotine dependence, cigarettes, uncomplicated; G93.89 Other specified disorders of brain; M79.662 Pain in left lower leg; R94.31 Abnormal electrocardiogram [ECG] [EKG]
CPT/HCPCS: 36415; 70450; 70544; 70547; 70551; 71045; 71552; 72141; 80048; 80053; 80061; 83036; 83735; 84443; 84484; 85025; 85027; 92610; 93005; 93306; 93971; 96360; 96361; 96372; 97162; 97165; 97535; 97802; 99218; 99283; 99406; A9585; J7030; Q9957; A4216; G0378

== ENCOUNTER 2019-01-14 10:00 | Outpatient (RCR) | payer MEDICARE, MEDICAID, SELFPAY ==
[2018-10-29 12:10] VITALS: BMI 26.1
--- NOTE | 2018-11-07 12:47 | HP.OTEVAL_ITS ---
Patient's Visit Information ARYAN BROCK is a 68 year old M, referred to Occupational Therapy by Luis Bateman III, MD, with a diagnosis of R hand weakness. Date of Evaluation: 11/07/18 Occupational Therapist: Cecilia Jacobo - Subjective Subjective: Pt seen for initial occupational therapy evaluation for R UE weakness. Pt had initial weakness R UE 10/27/18. He was in hospital for 3-4 days then returned home alone. Pt reports minimal pain R UE at rest and increased pain with movement. Lives alone, lives in RV 2 steps to enter 2 handrails. No AE in RV and independent w/ ADLs/IADLs. 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 Pt states has had trouble with self feeding holding his cup but its getting better. Pt states he has some numbness and decreased sensation R UE, primarily R thumb. No tingling. Pt is R hand dominent. Pt states he had a bone removed in bilateral wrists years ago and has limited ROM bilateral wrists ever since. - ADLs Comments: decreased independence wtih getting drink to mouth. Pt states able to tie shoes, independent with dressing, bathing, toileting. - Pain R hand/forearm 4 Pain Intensity Range: 4, 8 - Objective Objective/Observation: decreased coordination and strength R UE. - ROM Shoulder: R WFL, L WFL Elbow: R WFL, L WFL Wrist: R 25'/34' L 45'/66' MP: WFL PIP: WFL DIP: WFL - Strength Hospitality Team Member: R 65#, L 85# Lateral Pinch: R 14#, L 12# Tripod Pinch: R 11#, L 14# Strength Comments: generalized R UE strength 4-/5, L UE 4-/5 - Edema Other: no edema noted - Sensation Sensation Comments: numbness R UE shoulder to finger tips, thumb more decreased sensation than all digits per pt. Monofilament: R UE 2.83 L UE 2.83 (normal range) - Nine Hole Peg Right: 26.8 Left: 25.4 Comments: R hand dominent - Quick DASH-Disab of Arm,Shoulder& Hand Quick DASH Score: 31.8175 - Goals Goal:: Pt will progress w/ R hand breaker engineer strength by 20# to assist with opening containers independently by d/c from OT services. Pt will progress w/ R UE strength to 4+/5 to assist with IADLs and hobbies independently by d/c from OT services. Goal:: Pt will demo no pain greater than 1/10 R UE with movement by d/c from OT services. Goal:: Pt will demo increased coordination and dexterity skills R hand to manipulate all fasteners independently and demo no spillage of cups or food with using utensils. Goal:: Pt will be educated on R UE HEP with good understanding and demo 100%x. - Rehabilitation General Assessment: Pt demo decreased strength R UE and decreased R hand breaker engineer strength. Pt demo decreased coordination of R hand to assist with functional living tasks all indicating a need for skilled OT interventions to increase R UE generalized strength, R hand breaker engineer strength, increase R hand coordination and dexterity skills for functional living tasks. Rehabilitation Potential: Excellent - Anticipated Interventions Anticipated Interventions: Strengthening, Massage, Modalities, Joint Protection/Energy Conservation, Fine Motor Coord/Tristan, Neuro Reeducation, ADL Training, Education re assistive Equipment, Education re Diagnosis, Home Program - Visit Plan Frequency: 1-2x /Week Duration: 4-6 Weeks General Plan: increase R UE generalized strength, R hand breaker engineer strength, educated on R UE HEP, increase R hand coordination skills for BADL/IADL tasks, decrease pain R UE. TEXT: Thank you for the opportunity to evaluate your patient. For Medicare and Medicare HMO plans, please review the plan of care and approve it. It will need to be FAXED BACK to us at [phone] for Medicare purposes. Please let me know if there are questions or concerns regarding this plan of care. Physician Signature: Date :
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
--- NOTE | 2018-12-24 11:59 | HP.PTREVAL ---
Luis Bateman III, MD, It has been my pleasure to treat ARYAN BROCK over the last 8 visits for R hand weakness with poss radic and possible TIA. Please see the progress note below for an update on the physical therapy plan of care! Subjective: Pt reports 3/ 10 pain in the calf. Pt reports that he wants to continue a few more weeks cause his calf pain is still there. Pt feels the roller really helps his calf pain. Objective/Function: Stanidng calf raise 3 X 10 with very little discomfort and strength remains unchanged at this point Plan Plan: Continue 2X/ week for 2-3 weeks for B LE strengthening, B HS and gastroc stretching, core stability, functional strength with HEP Goals Goal 1:: I HEP Goal Time Frame: 4-6 Weeks Goal 2:: Be able to to do 3 X 10 standing heel and toe raises without signs of weakness or pain Goal Time Frame: 4-6 Weeks Goal 3:: L calf pain to 1/10 intermittant pain Goal Time Frame: 4-6 Weeks Goal Progress: Progressing Goal 4:: Increase B LE strength by 1/2 muscle grade (at time of eval: hip flex R 4-/5 and L 4/5, Hip abd B 4/5, Bridge 1/2 normal ROM bridge, Knee ext R 4-/5 and L 4/5, B knee flex 4/5, Pt has trouble with heel raise on the L compared to the R). Goal Progress: Progressing Anticipated Interventions Patient/Client Instruction: Educate patient on: Condition, Plan of Care For the Purpose of:: To improve nutrient delivery to tissue, To increase oxygenation perfusion, To improve muscle performance and motor function, To improve ability to perform ADL's, To increase tolerance to activity/condition/position, To improve performance and independence with ADL's, To improve gait and locomotor functions, To improve health of tissue, To increase flexibility/ROM, To improve endurance Therapeutic Exercise to Include: Strength training, Endurance training, Coordination, Flexibilty training, Gait and locomotor training, Neuromotor development, Passive ROM, Active ROM, Dynamic Lumbar Stabilization For the Purpose of:: To increase ROM, To improve nutrient delivery to tissue, To improve muscle performance and motor function, To improve ability to perform ADL's, To increase tolerance to activity/condition/position, To improve gait and locomotor functions, To improve health of tissue, To increase flexibility/ROM, To improve endurance Please do not hesitate to contact me at [phone] by phone or if you have questions or concerns regarding this new plan of care! Sincerely, Olga Bosch, MPT
--- NOTE | 2018-12-26 11:15 | HP.OTREVAL ---
Luis Bateman III, MD, It has been my pleasure to treat ARYAN BROCK over the last 10 visits for R hand weakness. Please see the progress note below for an update on the occupational therapy plan of care! Subjective: pt arrived stating he just woke up from a good nap. Objective/Function: Pt has progressed with R UE generalized strength 4+/5. Pt continues to demo decreased R hand cover creaser strength 66# this date and 65# at evaluation. Pt continues to demo decreased R hand coordination compared to L hand coordination when completing 9 hole peg test. Pt states he can complete all fine motor tasks independently at home. Pt states no pain R hand and increased independence with BADL/IADL tasks. Pt has been educated on R hand HEP with good understanding. Pt would continue to benefit from direct occupational therapy services to increase R hand cover creaser strength for functional living tasks and increase R hand coordination skills by decreasing time needed to complete 9 hole peg test. 1-2x/wk 4wks Plan Frequency: 1-2x /Week Duration: 4 Weeks Plan: see re-eval for details Goals - Goals Goal:: Pt will progress w/ R hand cover creaser strength by 20# to assist with opening containers independently by d/c from OT services. Goal:: Pt will demo no pain greater than 1/10 R UE with movement by d/c from OT services. Goal:: Pt will demo increased coordination and dexterity skills R hand to manipulate all fasteners independently and demo no spillage of cups or food with using utensils. Goal:: Pt will progress w/ coordination tasks to decrease time of 9 hole peg tests by 3 seconds by d/c from OT services. Goal:: Pt will be educated on R UE HEP with good understanding and demo 100%x. Anticipated Interventions Anticipated Interventions: Strengthening, Massage, Modalities, Joint Protection/Energy Conservation, Fine Motor Coord/Tristan, Neuro Reeducation, ADL Training, Education re assistive Equipment, Education re Diagnosis, Home Program Please do not hesitate to contact me at [phone] by phone or if you have questions or concerns regarding this new plan of care! Sincerely, Cecilia Jacobo
--- NOTE | 2019-01-14 10:01 | HP.PTDCSUM ---
HP - PT D/C Summary It has been my pleasure to treat ARYAN BROCK under orders from Luis Bateman III, MD, for the diagnosis of R hand weakness with poss radic and possible TIA for a total of 13 visit(s). Discharge Date: 01/14/19 Please see the following information for a summary of their discharge status. - Subjective Subjective: Pt reports that he has no pain. He feels that he is ready to be discharged. - Pain L calf Pain Intensity (Out of 10): 3 L hand Pain Intensity (Out of 10): 4 - Overall Improvement % Improvement: 90 - Objective Objective/Function: hip flex R 4/5 and L 4/5, Hip abd B 4/5, Bridge 1/2 normal ROM bridge, Knee ext R 4/5 and L 4/5, B knee flex 4/5, Pt does not show any weakness with heel and toe raises. - Goals Goal 1:: I HEP Goal Progress: Goal Met Goal 2:: Be able to to do 3 X 10 standing heel and toe raises without signs of weakness or pain Goal Progress: Goal Met Goal 3:: L calf pain to 1/10 intermittant pain Goal Progress: Goal Met Goal 4:: Increase B LE strength by 1/2 muscle grade (at time of eval: hip flex R 4-/5 and L 4/5, Hip abd B 4/5, Bridge 1/2 normal ROM bridge, Knee ext R 4-/5 and L 4/5, B knee flex 4/5, Pt has trouble with heel raise on the L compared to the R). Goal Progress: Goal Met - Plan Plan: DC PT to HEP - D/C Information Discharge Comments: DC PT to HEP If there are questions or concerns regarding this patient's physical therapy, please feel free to call me at [phone]. Thank you for the referral of this patient. Sincerely, Olga Bosch, MPT
--- NOTE | 2019-01-14 10:18 | HP.OTDCSUM_ITS ---
HP - OT D/C Summary It has been my pleasure to treat ARYAN BROCK under orders from Luis Bateman III, MD, for the diagnosis of R hand weakness for a total of 14 visit(s). Please see the following information for a summary of their discharge status. - Overall Improvement % Improvement: 90 - Objective Objective/Function: R medical detailist 72#. L medical detailist 75#. R hand 9 hole peg test 24.7 seconds - Goals Patient Goals: Regain Strength, Decrease Pain, Return to Work, Decrease Swelling/Stiffness, Improve Fine Motor Skills, Use Hand/Wrist/Arm Normally Again, Decrease Tingling/Numbness, Be More Independent in ADLS, Resume Former Household Responsibilities (Cooking,Cleaning,Yard, etc.), Resume Hobbies Goal:: Pt will progress w/ R hand medical detailist strength by 20# to assist with opening containers independently by d/c from OT services. Goal:: Pt will demo no pain greater than 1/10 R UE with movement by d/c from OT services. Goal:: Pt will demo increased coordination and dexterity skills R hand to manipulate all fasteners independently and demo no spillage of cups or food with using utensils. Goal:: Pt will progress w/ coordination tasks to decrease time of 9 hole peg tests by 3 seconds by d/c from OT services. Goal:: Pt will be educated on R UE HEP with good understanding and demo 100%x. - Plan Plan: d/c OT services - D/C Information Discharge Comments: Pt has made great progress with OT goals. Pt has progressed with R UE medical detailist strength to 72#. Pt states increased coordination skills of R hand with no spillage of food and independently able to manipulate all fasteners on clothes at home. Pt has progressed with R hand coordination using 9 hole peg test from 30 seconds R hand to 24.7 seconds R hand. Pt has been educated on R UE HEP with good understanding and demo. Pt no longer requires skilled OT services and pt agrees with OT this date. D/C OT services. If there are questions or concerns regarding this patient's occupational therapy, please fell free to call me at [phone]. Thank you for the referral of this patient. Sincerely, Cecilia Jacobo
== END 2019-01-14 19:00 | disposition home or self-care (01) ==
LOC: OT 10:00
PROVIDERS: Family Provider Family Medicine; PCP Family Medicine; Referring Provider Family Medicine; Visit Provider Family Medicine
DX: R29.898 Other symptoms and signs involving the musculoskeletal system (principal)
CPT/HCPCS: 97110; 97161; 97165; 97166; 97168; 97530

== ENCOUNTER 2019-03-12 12:58 | Emergency (ER) | payer MEDICARE, SELFPAY ==
[2018-10-29 12:10] VITALS: BMI 26.1
[2019-03-12 12:59] VITALS: BP 133/94; PULSE 57; RESP 17; TEMP 36.8; O2SAT 95; BMI 26.9
--- NOTE | 2019-03-12 13:46 | RAD_ITS ---
STUDY: X-RAY - UNILATERAL RIBS ( LEFT ) WITH CHEST REASON FOR EXAM: Male, 68 years old. Left rib pain following a fall. TECHNIQUE - RIBS: 4 view(s) of the ribs. TECHNIQUE - CHEST: Single PA view of the chest. COMPARISON: Comparison is made with prior chest radiograph dated October 28, 2018. FINDINGS - RIBS: Healed left sixth seventh and eighth rib fractures. FINDINGS - CHEST: Linear atelectasis and/or scarring in the right mid lung as well as at the left lung base. This is new as compared to prior study. There is no demonstrated pleural abnormality. Normal size heart. Normal mediastinum and olivia. Normal visualized pulmonary arteries. There is atherosclerotic calcification of the aortic arch with tortuosity. Normal visualized thoracic spine. Prior open reduction and internal fixation of the right clavicular fracture with disruption of the metallic plate. Healed left clavicular fracture. There is no demonstrated abnormality of the visualized soft tissue structures of the upper abdomen. RAD/Ribs Uni Min 3V w/PA Chest IMPRESSION: RIBS: Healed left sixth, seventh and eighth rib fractures. CHEST: Linear scarring versus atelectasis in the right midlung and left lung base. Electronically Signed: Alvin Topete, at 14:03 EDT , Service support ,
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
[2019-03-12 14:58] VITALS: BP 138/101; PULSE 84; RESP 18
== END 2019-03-12 14:59 | disposition home or self-care (01) ==
PROVIDERS: Emergency Provider Emergency Medicine; Family Provider Family Medicine; PCP Family Medicine
DX: S20.219A Contusion of unspecified front wall of thorax, initial encounter (principal); W01.10XA Fall on same level from slipping, tripping and stumbling with subsequent striking against unspecified object, initial encounter; Y93.9 Activity, unspecified; Y92.9 Unspecified place or not applicable; Y99.9 Unspecified external cause status; Z72.0 Tobacco use
CPT/HCPCS: 71101; 99282

== ENCOUNTER 2019-05-30 12:58 | Emergency (ER) | payer MEDICARE, SELFPAY ==
[2019-05-30 12:59] VITALS: BP 135/88; PULSE 82; RESP 18; TEMP 36.7; O2SAT 96; BMI 29.6
--- NOTE | 2019-05-30 13:11 | RAD_ITS ---
STUDY: X-RAY - LEFT KNEE REASON FOR EXAM: Pain, fall. TECHNIQUE: 4 view(s) of the knee. COMPARISON: None. FINDINGS: Normal visualized distal femur. Normal visualized proximal tibia and fibula. Normal proximal tibiofibular articulation. There is mild joint space narrowing of the medial femorotibial compartment. Normal lateral femorotibial compartment. Normal patellofemoral articulation. There is a very small joint effusion. RAD/Knee 4 or More Views IMPRESSION: Mild arthrosis of the medial femorotibial compartment. Very small joint effusion. Electronically Signed: Miguelito Mazariegos MD at 13:44 EDT Tel , Service support ,
--- NOTE | 2019-05-30 13:25 | ED.DCSUM_ITS ---
History of Present Illness Chief Complaint: Fall Informant: Patient Onset: Yesterday Context: Sudden Onset Timing: Intermittent Current Severity: Moderate Maximum Severity: Moderate Narrative: Patient presents to the emergency department with left knee pain after fall. Patient states yesterday, he slipped and landed on his left knee. He states that he does stand a lot during the day. Since then, he had a dull ache in the knee. He states the swelling has worsened mildly. He did not hit his head. He denies other injury. Has not taken anything for his pain. He is otherwise been in his normal state of health. Prior similar symptoms: No Recent Illness/Hospitalization: No Past Medical History - Allergies and Home Meds Allergies/Adverse Reactions: Allergies codeine Allergy (Verified 05/30/19 12:59) Hives hydrocodone bitartrate [From Vicodin] Allergy (Verified 05/30/19 12:59) Hives Primary Care Physician: Luis Bateman III, MD [Primary Care Provider] - Prior records reviewed: Yes Surgical History: - - Craniotomy for resection of angioma, right collar bone surgery x3. Smoking Status: Current every day smoker - Family History Maternal Family History: Reports: - - Patient notes that his mother and father lived into their 90s and were relatively healthy with no history of diabetes, heart disease, cancer. Paternal Family History: Reports: - - Patient notes that his mother and father lived into their 90s and were relatively healthy with no history of diabetes, heart disease, cancer. Review of Systems General: Denies: Chills, Fever, Sweats Eyes: Denies: Visual changes - bilaterally, Diplopia ENT: Denies: Rhinorrhea, Sore throat Cardiovascular: Denies: Chest pain, Palpitations Respiratory: Denies: Dyspnea, Cough, Dyspnea on exertion Gastrointestinal: Denies: Abdominal pain, Nausea, Vomiting, Diarrhea, Melena, Hematochezia Genitourinary: Denies: Dysuria, Hematuria, Frequency Musculoskeletal: Denies: Back pain, Extremity Pain Skin: Denies: Rash, Wounds Neurological: Denies: Headache, Weakness, Numbness Physical Exam Vital Signs/Narrative: Vital Signs Temp Pulse Resp BP Pulse Ox 05/30/19 12:59 98.1 F 82 18 135/88 H 96 Inital Vital Signs reviewed: Yes General: Well nourished, Well developed, No Acute Distress Head: Normocephalic, Atraumatic Eyes: Perrl, EOMI ENT: Moist mucous membranes, No rhinorrhea Neck: Supple, Nontender Cardiovascular: Regular rate, Regular rhythm, No murmurs Respiratory: No distress, CTA bilaterally, Chest nontender Abdomen: Soft, Nontender, Nondistended, Normal bowel sounds Back: Nontender, Normal Inspection Extremities: No edema, Tenderness - Mild tenderness over the tibial tuberosity. Extension is preserved. Superficial abrasion. No gross laxity. Skin: Normal color, No rash Neurological: Alert, Oriented x3, Cranial nerves II-XII grossly intact, Normal Strength, Normal Sensation Psychological: Normal affect, Normal Mood Diagnostic/Tx/Re-eval Clinical Impression(s) from Imaging Studies Knee X-Ray 05/30/19 13:11 IMPRESSION: Mild arthrosis of the medial femorotibial compartment. Very small joint effusion. Electronically Signed: Miguelito Mazariegos MD at 13:44 EDT Tel , Service support , - Medical Decision Making The patient is a very small effusion of the knee, but no gross laxity. His extension is preserved. Plain films obtained there is no evidence of acute fracture. My suspicion is that this is likely a knee sprain. The patient is p laced in an Chucky wrap. He will continue anti-inflammatories, ice, elevation. He will be discharged home. Impression 1. Left knee contusion status post fall ED Disposition - Plan for ED Patient: Instructions: Knee Sprain Referrals: Luis Bateman III, MD [Primary Care Provider] -
[2019-05-30] MEDS: Acetaminophen 500 MG Tablet 1000 MG PO (13:36)
== END 2019-05-30 14:00 | disposition home or self-care (01) ==
LOC: ED 13:19
PROVIDERS: Emergency Provider Emergency Medicine; Family Provider Family Medicine; PCP Family Medicine
DX: S80.02XA Contusion of left knee, initial encounter (principal); S80.212A Abrasion, left knee, initial encounter; M17.12 Unilateral primary osteoarthritis, left knee; W01.0XXA Fall on same level from slipping, tripping and stumbling without subsequent striking against object, initial encounter; Y93.9 Activity, unspecified; Y92.9 Unspecified place or not applicable; F17.200 Nicotine dependence, unspecified, uncomplicated
CPT/HCPCS: 73564; 99284

== ENCOUNTER 2020-05-10 11:23 | Emergency (ER) | payer MEDICARE, MEDICAID, SELFPAY ==
[2020-05-10 11:24] VITALS: BP 134/86; PULSE 80; RESP 18; TEMP 36.3; O2SAT 98; BMI 27.8
--- NOTE | 2020-05-10 11:38 | ED.VISSUMM ---
- ER Visit Summary Date of Service: 05/10/20 Chief Complaint: Back pain History of Present Illness: The patient is a 69 M who presents with back pain that has been getting worse over the past 4 days. Patient states he has a history of multiple fractures in his lumbar vertebrae from a fall approximately 14 years ago. Patient states the pain is constant. Patient states the pain is aching but sharp at times. Patient states nothing in particular makes it worse or makes it better. Patient denies any numbness or tingling. Patient denies any radiation of the pain to his lower extremities. Patient denies any bowel or bladder changes. Patient denies any saddle anesthesia. Patient drove himself to the emergency department and was able to ambulate to his room. Physical Examination: Vital signs are stable. Patient is afebrile. Patient is in no acute distress. Musculoskeletal exam reveals some mild tenderness over the lumbar spine and paraspinal muscles. There is no bony crepitance or step-off. Range of motion was slightly limited in all motion secondary to pain. Strength is 5/5 bilaterally in the upper and lower extremities. There are no sensory deficits noted. Deep tendon reflexes are 2+/4 the patella and Achilles reflexes bilaterally. Test Results: X-rays of the lumbar spine were obtained. There is scoliosis noted. There are degenerative changes noted. There are no acute fractures noted. This was interpreted by the radiologist and reviewed by myself. Emergency Department Course and Treatment: Patient was instructed to use ice to the area. Patient was given a prescription for a short course of Percocet. Patient was instructed to follow-up with his primary care physician in 5 to 7 days. Patient understood and was agreeable with the plan. All questions were answered. Disposition: Discharge home Impression: Acute low back pain This note was generated with [employer] dictation software. It may contain incorrect words, spelling, and punctuation that were not noted in review of the chart prior to signing ED Disposition - Plan for ED Patient: Disposition: Home or Assisted Living Diagnosis: Acute low back pain Instructions: ED Back Pain Acute or Chronic Prescriptions: Oxycodone HCl/Acetaminophen [Percocet 5/325] 1 tab PO Q6H PRN PRN 2 Days #8 tab PRN Reason: Pain Prescription Printed Referrals: Luis Bateman III, MD [Primary Care Provider] - 3-5 Days
--- NOTE | 2020-05-10 11:50 | RAD_ITS ---
STUDY: X-RAY - LUMBAR SPINE REASON FOR EXAM: Male, 69 years old. LOW BACK PAIN. PATIENT CLAIMS THEY FRACTURED L1-L5 IN 2005 TECHNIQUE: 3 view(s) of the lumbar spine were obtained. COMPARISON: 11/29/2012 FINDINGS: Normal lumbar lordosis. Moderate dextroscoliosis of the thoracolumbar spine. There is a normal alignment of the vertebrae. Status post vertebroplasty of T12. There is multilevel endplate spondylosis of the lumbar vertebrae. There is multi-level degenerative disc disease with multi-level disc space narrowing. The soft tissue structures are unremarkable. RAD/Lumbar Spine 2 or 3 Views IMPRESSION: 1. Chronic compression fracture of T12 treated with vertebroplasty. 2. Moderate dextroscoliosis with diffuse degenerative disc disease. Electronically Signed: Everton Temple MD at 12:10 EDT Tel , Service support ,
== END 2020-05-10 12:36 | disposition home or self-care (01) ==
PROVIDERS: Emergency Provider Emergency Medicine; PCP Family Medicine
DX: M54.5 Low back pain (principal); Z72.0 Tobacco use
CPT/HCPCS: 72100; 99282

== ENCOUNTER 2020-09-06 09:23 | Emergency (ER) | payer MEDICARE, MEDICAID, SELFPAY ==
[2020-09-06 09:23] VITALS: BP 144/100; PULSE 77; RESP 16; TEMP 36.2; O2SAT 98; BMI 26.9
--- NOTE | 2020-09-06 09:43 | RAD_ITS ---
STUDY: X-RAY - LEFT SHOULDER REASON FOR EXAM: Male, 70 years old. FALL, LEFT SHOULDER PAIN TECHNIQUE: 4 view(s) of the shoulder. COMPARISON: Comparison is made with prior study dated 08/01/2017. FINDINGS: There is mild degenerative arthrosis of the glenohumeral articulation. Normal acromioclavicular joint. Normal acromion. Healed left midclavicular fracture with residual deformity. Normal humeral head and visualized proximal humerus. The soft tissue structures are unremarkable. Normal visualized pulmonary apex. RAD/Shoulder min 2 Views IMPRESSION: Healed left midclavicular fracture with deformity. Electronically Signed: Alvin Topete, at 10:08 EST , Service support ,
--- NOTE | 2020-09-06 09:44 | ED.DCSUM_ITS ---
History of Present Illness Chief Complaint: Upper Extremity Injury Informant: Patient Narrative: 70-year-old male presenting with left shoulder pain. He states that Sunday night he got up to close his bedroom door and slipped on the hardwood floor. He denies hitting his head or LOC. Patient does state that he fell onto his left shoulder and has had pain in his left shoulder since. He did not have any paresthesias. He is able to use his left shoulder. He is using Tylenol/ibuprofen at home for pain. - Past Medical History (1) TIA (transient ischemic attack) Status: Chronic (2) Angioma Status: Chronic Past Medical History - Allergies and Home Meds Allergies/Adverse Reactions: Allergies codeine Allergy (Verified 09/06/20 09:23) Hives hydrocodone bitartrate [From Vicodin] Allergy (Verified 09/06/20 09:23) Hives Primary Care Physician: Luis Bateman III, MD [Primary Care Provider] - Prior records reviewed: Yes Past Medical History: - - Reviewed in problem list Surgical History: - - Craniotomy for resection of angioma, right collar bone surgery x3. Lives: Alone Smoking Status: Current every day smoker Alcohol: None Drugs: None - Family History Maternal Family History: Reports: - - Patient notes that his mother and father lived into their 90s and were relatively healthy with no history of diabetes, heart disease, cancer. Paternal Family History: Reports: - - Patient notes that his mother and father lived into their 90s and were relatively healthy with no history of diabetes, heart disease, cancer. Review of Systems General: Denies: Chills, Fever, Sweats Eyes: Denies: Visual changes - bilaterally, Diplopia ENT: Denies: Rhinorrhea, Sore throat Cardiovascular: Denies: Chest pain, Palpitations Respiratory: Denies: Dyspnea, Cough, Dyspnea on exertion Gastrointestinal: Denies: Abdominal pain, Nausea, Vomiting, Diarrhea, Melena, Hematochezia Genitourinary: Denies: Dysuria, Hematuria, Frequency Musculoskeletal: Reports: Extremity Pain - Left shoulder. Denies: Back pain Skin: Denies: Rash, Abscess Neurological: Denies: Headache, Weakness Psych: Denies: Depression, Anxiety Physical Exam Vital Signs/Narrative: Vital Signs Temp Pulse Resp BP Pulse Ox 09/06/20 09:23 97.2 F L 77 16 144/100 H 98 Inital Vital Signs reviewed: Yes General: Well nourished, No Acute Distress Head: Normocephalic Eyes: Perrl, EOMI ENT: Moist mucous membranes, No rhinorrhea Cardiovascular: Regular rate, Regular rhythm Respiratory: No distress, CTA bilaterally Extremities: - - Tenderness to palpation over anterior shoulder girdle. There is no deformities. Patient able to abduct, adduct, flex, extend with pain elicited without limitation of range of motion. Left shoulder and upper extremity are neurovascular intact. Skin: Normal color, No rash Neurological: Alert, Oriented x3 Psychological: Normal affect, Normal Mood Diagnostic/Tx/Re-eval Clinical Impression(s) from Imaging Studies Shoulder X-Ray 09/06/20 09:43 IMPRESSION: Healed left midclavicular fracture with deformity. Electronically Signed: Alvin Efrem, at 10:08 EST , Service support , - Medical Decision Making 70-year-old male presenting with left shoulder pain after mechanical fall which occurred on Sunday. On exam he does have some tenderness elicited in the an terior shoulder with range of motion however he does have full range of motion in the left shoulder. Patient declines analgesia. Patient stated he just wanted to make sure he did not have a broken shoulder. 4 view x-ray of the left shoulder as interpreted by myself and the radiologist shows a healed clavicular fracture and no other acute process. Patient counseled on findings and recommended that he does range of motion exercises as well as ice and analgesics at home. Patient amenable to this plan. Patient stable for discharge at this time. Impression: 1. Mechanical fall 2. Left shoulder contusion ED Disposition - Plan for ED Patient: Disposition: Home or Assisted Living Instructions: ED Shoulder Sprain Referrals: Luis Bateman III, MD [Primary Care Provider] -
== END 2020-09-06 10:45 | disposition home or self-care (01) ==
LOC: ED 10:44
PROVIDERS: Emergency Provider Student in an Organized Health Care Education/Training Program; PCP Family Medicine
DX: S40.012A Contusion of left shoulder, initial encounter (principal); W01.0XXA Fall on same level from slipping, tripping and stumbling without subsequent striking against object, initial encounter; Y93.89 Activity, other specified; Y92.9 Unspecified place or not applicable; Y99.9 Unspecified external cause status; F17.200 Nicotine dependence, unspecified, uncomplicated; Z88.5 Allergy status to narcotic agent; Z86.73 Personal history of transient ischemic attack (TIA), and cerebral infarction without residual deficits
CPT/HCPCS: 73030; 99282

== ENCOUNTER 2020-12-23 10:40 | Emergency (ER) | payer MEDICARE, MEDICAID, SELFPAY ==
[2020-12-23 10:41] VITALS: BP 143/92; PULSE 73; RESP 15; TEMP 36.3; O2SAT 96; BMI 26.9
--- NOTE | 2020-12-23 10:56 | CT_ITS ---
STUDY: CT CHEST WITHOUT CONTRAST REASON FOR EXAM: Male, 70 years old. Left lower chest wall/ rib trauma RADIATION DOSAGE (If Supplied By Facility): CTDIvol = ( 15.22 ) mGy, DLP = ( 471.45 ) mGycm TECHNIQUE: Transaxial imaging was performed without the administration of intravenous contrast material. Multiplanar coronal and sagittal images were reformatted. Individualized dose optimization techniques were used for this CT. COMPARISON: None. FINDINGS: Small benign-appearing bilateral axillary lymph nodes. Patchy infiltrate in the peripheral lateral aspect of the right upper lobe abutting the pleural surface adjacent to the the right major fissure. With the history of trauma, this may represent a pulmonary contusion. No rib fracture is seen at that level. There is no demonstrated pleural abnormality. There are calcifications of the coronary arteries. There are multiple small lymph nodes within the mediastinum, which are normal in size and morphology most compatible with reactive lymph hyperplasia. Normal hilar regions. Normal unenhanced pulmonary arteries. There is atherosclerotic calcification of the aortic arch with tortuosity and elongation of the aortic arch and descending thoracic aorta. There is demineralization of the thoracic spine. Prior vertebroplasty of the T12 vertebrae. Prior cholecystectomy. CT/Chest without Contrast IMPRESSION: Patchy infiltrate in the peripheral lateral aspect of the right upper lobe abutting the pleural surface adjacent to the right major fissure. With the patient''s history of trauma, this may represent a contusion. Electronically Signed: Alvin Topete MD at 11:29 EDT , Service support ,
--- NOTE | 2020-12-23 10:58 | ED.VISSUMM ---
- ER Visit Summary Date of Service: 12/23/20 Chief Complaint: Left lower chest wall injury History of Present Illness: The patient is a 70 M [history of TBI and prior hepatitis. Patient was getting boxes out of his truck when he slipped and fell injuring his left lower chest wall on the truck bed. This occurred yesterday. He denies any LOC. He is concerned he may have broken ribs. He has had those before. He denies any trouble breathing but has more pain with breathing or movement. He denies any hemoptysis. He denies any abdominal pain. He denies any shortness of breath. Physical Examination: Older male no acute distress. Vital signs stable afebrile. Pulse ox 96% on room air no hypoxia. HEENT exam unremarkable atraumatic. C-spine nontender. Lungs clear to auscultation bilaterally. Heart regular rhythm no murmur. Rate about 70. Chest wall reproducible tenderness on the left lower anterior rib cage. No ecchymosis or bruising no subcu air or crepitance. No gross bony deformity but obvious rib tenderness. Right rib cage and posterior ribs are nontender. Abdomen soft nontender normal bowel sounds no peritoneal signs. No bruising noticed abdominal wall. Pelvic girdle intact. Patient moving all 4 extremities nontender no deformities normal range of motion. Back and spine nontender. Neurologically is awake alert with no focal motor deficits. Test Results: CAT scan of the chest without contrast read by the radiologist and reviewed by me showed no acute abnormality. Radiologist noted a small amount of fluid in the right chest cavity. I think this is unrelated he has no right chest wall cavity tenderness. There is no obvious acute broken ribs or hemothorax. There are old broken ribs on the left and has had prior bilateral clavicle fractures but those are old also. Repeat exam patient is doing well at 1146. He had I discussed his CAT scan results. He does not want any narcotic pain medication. Emergency Department Course and Treatment: Older male fell on a truck bed he and I discussed imaging options. We a CAT scan was a better option at this time. He did not anything for pain. Treatment Plan: Ice to his left lower rib cage and chest wall. Tylenol and Motrin for pain. Follow-up if not improving. Disposition: discharge Impression: Acute fall with left chest wall blunt trauma Left lower rib cage contusion This note was generated with Dragon dictation software. It may contain incorrect words, spelling, and punctuation that were not noted in review of the chart prior to signing ED Disposition - Plan for ED Patient: Referrals: Luis Bateman III, MD [Primary Care Provider] -
--- NOTE | 2020-12-23 11:51 | ED.DEP ---
ED Disposition - Plan for ED Patient: Disposition: Home or Assisted Living Instructions: ED Chest Wall Contusion Referrals: Luis Bateman III, MD [Primary Care Provider] - As Needed Additional Instructions: Ice to your left lower chest wall to decrease swelling and pain. Tylenol and Motrin for pain. Use a pillow to support the area that is tender. Follow-up with his doctor if not improving.
== END 2020-12-23 12:00 | disposition home or self-care (01) ==
PROVIDERS: Emergency Provider Emergency Medicine; PCP Family Medicine
DX: S20.212A Contusion of left front wall of thorax, initial encounter (principal); W17.89XA Other fall from one level to another, initial encounter; Y93.89 Activity, other specified; Y92.812 Truck as the place of occurrence of the external cause; Y99.9 Unspecified external cause status; Z87.820 Personal history of traumatic brain injury; Z72.0 Tobacco use
CPT/HCPCS: 71250; 99282

== ENCOUNTER 2021-07-01 17:26 | Emergency (ER) | payer MEDICARE, MEDICAID, SELFPAY ==
[2021-07-01 17:26] VITALS: BP 146/112; PULSE 83; RESP 18; TEMP 36.5; O2SAT 96; BMI 26.6
--- NOTE | 2021-07-01 19:29 | EDS_ITS ---
HPI History of Present Illness Chief Complaint: Upper Extremity Injury Narrative Narrative: Patient is a 70-year-old male who states that over the past 2 days he has had increasing pain and swelling to his left wrist with no known injury. He states that he is having difficulty moving the wrist now secondary to the pain and swelling and with concern there could be infection presents for evaluation [facility] Medical History Arthritis History of hepatitis TBI (traumatic brain injury) Home Medications colchicine 0.6 mg PO DAILY #13 cap 07/01/21 [Rx Last Taken Unknown] oxycodone-acetaminophen [Endocet] 1 tab PO Q6H PRN 3 Days #12 tab 07/01/21 [Rx Last Taken Unknown] Allergy/AdvReac Type Severity Reaction Status Date / Time codeine Allergy Hives Verified 07/01/21 18:42 hydrocodone bitartrate Allergy Hives Verified 07/01/21 18:42 [From Vicodin] Surgical History (Updated 07/01/21 @ 18:46 by Yessenia Minor) H/O shoulder surgery History of surgery on wrist Social History Smoking Status: Current some day smoker tobacco type: cigarettes ROS ROS ED Constitutional Constitutional ED: Denies chills or fever(s) Cardiovascular Cardiovascular: Denies chest pain Respiratory/Chest Respiratory/Chest: Denies cough or dyspnea Gastrointestinal Gastrointestinal: Denies abdominal pain, diarrhea, nausea or vomiting Genitourinary Genitourinary ED: Denies dysuria Musculoskeletal Musculoskeletal: Reports other Details: Positive left wrist pain Integumentary Reports rash Neurologic Neurologic: Denies headache(s) Hematologic/Lymphatic Hematologic/Lymphatic: Denies easy bleeding or easy bruising EXAM Physical Exam Const Vital Signs: 07/01/21 17:26 Temperature 97.7 F L Temperature Source Temporal Pulse Rate 83 Respiratory Rate 18 Blood Pressure 146/112 H Blood Pressure Mean 123 Pulse Ox 96 Oxygen Delivery Method Room Air Positive well nourished and well developed General Appearance ED: well developed Eyes PERRL and EOMs intact bilaterally Neck full ROM and supple Resp normal respiratory effort and clear to auscultation bilaterally Cardio regular rate and regular rhythm Extremity Extremity Narrative: Left upper extremity is neurovascularly intact; AIN/PIN are intact and normal. Patient has soft tissue swelling with mild erythema to the dorsal aspect of the left wrist. There is asymmetric warmth at the site as well and pain with palpation. Active range of motion as well as passive is decreased secondary to pain. Remainder the exam is normal Neuro oriented x3 and CN's II-XII intact bilaterally Sensorium / Orientation: alert Psych mental status grossly normal Skin no rashes or lesions noted Skin Narrative: Soft tissue changes to the left wrist as documented above MDM MDM MDM Narrative Medical decision making narrative: Patient presented to the ER afebrile with gradual onset of pain and swelling to the left wrist with no trauma. His physical exam showing swelling warmth and tenderness to the left wrist with no trauma is most consistent with gout. I do not feel this is cellulitis and therefore do not feel there is need for imaging or laboratory studies. Patient replaced on colchicine and Percocet to help with symptom control and is otherwise safe for discharge Discharge Plan Triage Chief Complaint: Upper Extremity Injury ED Provider: Mario Jimenez Dx/Rx/DC Orders Clinical Impression: Acute gout of left wrist Instructions: ED Gout, ED Gout Diet Prescriptions: New oxycodone-acetaminophen [Endocet] 5-325 mg tablet 1 tab PO Q6H PRN (Reason: pain) 3 Days Qty: 12 RF: 0 colchicine 0.6 mg capsule 0.6 mg PO DAILY Qty: 13 RF: 0 Primary Care Provider: Care Physician,No Primary Referrals: Kathleen Doan MD [STAFF PHYSICIAN] - 3-5 Days if not improving Care Physician,No Primary [Primary Care Provider] - Disposition Disposition: Home, Self Care Discharge Date/Time: 07/01/21 19:39
[2021-07-01] MEDS: predniSONE 20 MG Tablet 40 MG PO (19:38)
== END 2021-07-01 19:39 | disposition home or self-care (01) ==
PROVIDERS: Emergency Provider Emergency Medicine
DX: M10.9 Gout, unspecified (principal); F17.210 Nicotine dependence, cigarettes, uncomplicated
CPT/HCPCS: 99283

== ENCOUNTER 2022-01-16 13:03 | Emergency (ER) | payer MEDICARE, MEDICAID, SELFPAY ==
[2022-01-16 13:04] VITALS: BP 112/77; PULSE 78; RESP 16; TEMP 36.4; O2SAT 96; BMI 26.6
--- NOTE | 2022-01-16 13:17 | ED.VIS.LOWEX ---
HPI History of Present Illness HPI Narrative: Patient presents with left ankle pain that began 2 days ago. Patient states he was out mushroom hunting and was climbing up a steep hill. Patient states he climbed down the steep hill as well. Patient is unsure if he twisted his ankle. Patient states his pain is worse today. Patient states it is burning. Patient states it is worse with any weightbearing or ambulation. Patient denies any paresthesias or weakness. Patient denies any other injuries. Patient denies any calf pain. Chief Complaint: Lower Extremity Injury Informant: patient Onset/Context/Timing Onset: Days Context: Gradual Onset Timing: Continuous Quality of Pain: Burning Location: Left ankle Worsened by: Weightbearing, ambulation Relieved by: Nothing Associated Symptoms Associated Symptoms: Negative for Parasthesia and Weakness PFSH PFS Medical History Arthritis History of hepatitis TBI (traumatic brain injury) Home Medications NK 01/16/22 [History Last Taken Unknown] Allergy/AdvReac Type Severity Reaction Status Date / Time codeine Allergy Hives Verified 01/16/22 13:04 hydrocodone bitartrate Allergy Hives Verified 01/16/22 13:04 [From Vicodin] Surgical History H/O shoulder surgery History of surgery on wrist Social History Smoking Status: Current every day smoker tobacco type: cigarettes ROS ROS ED Constitutional Constitutional ED: Denies chills or fever(s) Eyes Eyes: Denies blurry vision or change in vision ENT ENT ED: Denies rhinorrhea or sore throat Cardiovascular Cardiovascular: Denies chest pain or palpitations Respiratory/Chest Respiratory/Chest: Denies cough or dyspnea Gastrointestinal Gastrointestinal: Denies nausea or vomiting Genitourinary Genitourinary ED: Denies dysuria or hematuria Musculoskeletal Musculoskeletal: Denies back pain or neck pain Integumentary Denies abscess or rash Neurologic Neurologic: Denies headache(s) or weakness Allergic/Immunologic Allergic/Immunologic ED: Denies mouth swelling or urticaria EXAM Physical Exam Const Vital Signs: 01/16/22 13:04 Temperature 97.6 F L Temperature Source Temporal Pulse Rate 78 Respiratory Rate 16 Blood Pressure 112/77 Blood Pressure Mean 88 Pulse Ox 96 Oxygen Delivery Method Room Air Positive well nourished and well developed General Appearance ED: well developed and NAD HEENT Reports moist mucous membranes Neck full ROM, supple and no JVD GI normal to inspection, nondistended, normoactive bowel sounds Extremity normal to inspection Extremity Narrative: There is tenderness over the medial aspect of the left ankle. There is no edema or ecchymosis. There is no deformity noted. There is no tenderness over the fifth metatarsal. There is no tenderness over the proximal fibula. Range of motion was slightly limited in all motions of the left ankle secondary to pain. Pedal pulses are equal bilateral. Capillary refill is less than 2 seconds in all digits. General Extremety ED: Negative for edema or tenderness General Extremity: Negative for edema Neuro oriented x3, CN's II-XII intact bilaterally and no sensory deficits noted Sensorium / Orientation: alert Motor Exam: strength 5/5 throughout Psych mental status grossly normal Skin no rashes or lesions noted MDM MDM MDM Narrative Medical decision making narrative: X-rays of the left ankle were obtained. There are 3 views. On my interpretation, there is no acute fracture. There is no dislocation. There is no soft tissue swelling. There are mild degenerative changes noted. Radiologist also interpreted the x-rays and agrees. Patient was given an Aircast. Patient was instructed to ice and elevate the left ankle. Patient was instructed to take ibuprofen or Tylenol as needed for pain. Patient was instructed to follow-up with his primary care physician in 5 to 7 days. Patient understood and was agreeable with the plan. All questions were answered. Discharge Plan Triage Chief Complaint: Lower Extremity Injury ED Provider: Bernardo Kelly Dx/Rx/DC Orders Clinical Impression: Left ankle sprain Instructions: ED Ankle Sprain (Adult) Prescriptions: No Action NK RF: 0 Primary Care Provider: Care Physician,No Primary Referrals: Raquel Morejon DO [STAFF PHYSICIAN] - 5-7 Days Care Physician,No Primary [Primary Care Provider] - Disposition Disposition: Home, Self Care
--- NOTE | 2022-01-16 13:35 | RAD_ITS ---
STUDY: X-RAY - LEFT ANKLE REASON FOR EXAM: Male, 71 years old. Injury/Pain TECHNIQUE: 3 view(s) of the ankle. COMPARISON: None. FINDINGS: Normal visualized distal tibia and fibula. Normal medial and lateral malleoli. Normal tibiotalar articulation and ankle mortise. Normal visualized talus and calcaneus. The visualized subtalar, talonavicular, calcaneocuboid and tarsal articulations are normal. The soft tissue structures are unremarkable. RAD/Ankle min 3 Views IMPRESSION: Normal x-ray examination of the ankle. Electronically Signed: Alvin Topete MD at 13:55 EDT ,
== END 2022-01-16 14:34 | disposition home or self-care (01) ==
PROVIDERS: Emergency Provider Emergency Medicine; Visit Provider Emergency Medicine
DX: S93.402A Sprain of unspecified ligament of left ankle, initial encounter (principal); F17.210 Nicotine dependence, cigarettes, uncomplicated; X58.XXXA Exposure to other specified factors, initial encounter
CPT/HCPCS: 73610; 99283

== ENCOUNTER 2022-04-19 13:33 | Emergency (ER) | payer MEDICARE, MEDICAID, SELFPAY ==
[2022-04-19 13:34] VITALS: BP 139/96; PULSE 97; RESP 16; TEMP 36.8; O2SAT 94; BMI 26.6
--- NOTE | 2022-04-19 13:51 | EX.ED.DYSGE1 ---
HPI History of Present Illness Chief Complaint: Lower Extremity Injury Narrative Narrative: Patient presents with pain in the right great toe and the metatarsal phalangeal joint. This started yesterday. He has a history of gout. No fevers or chills streaking. He is not a diabetic. No trauma to that region. [facility] Medical History Arthritis History of hepatitis TBI (traumatic brain injury) Home Medications oxycodone-acetaminophen 5 mg-325 mg tablet (Percocet) 1 tab PO Q6H PRN pain 3 days #12 tabs 04/19/22 [Rx Last Taken Unknown] Allergy/AdvReac Type Severity Reaction Status Date / Time codeine Allergy Hives Verified 04/19/22 13:34 hydrocodone bitartrate Allergy Hives Verified 04/19/22 13:34 [From Vicodin] Surgical History H/O shoulder surgery History of surgery on wrist Social History Smoking Status: Current every day smoker tobacco type: cigarettes ROS ROS ED ROS Narrative Past medical history: Reviewed Medications: Reviewed Social history: Noncontributory, he does not drink alcohol, he does eat a lot of meat. Review of systems: General: No fevers or chills Musculoskeletal: Toe pain as in HPI Skin: No abrasions or lacerations. No lymphangitic streaking Neurological: No weakness or paresthesias Hematologic: No easy bleeding or easy bruising EXAM Physical Exam Narrative Exam Narrative: Physical exam General: Well nourished, Well developed, No Acute Distress Head: Normocephalic, Atraumatic Cardiovascular: Regular rate, Regular rhythm Respiratory: No distress, CTA bilaterally Abdomen: Soft, Nontender, Nondistended Back: Nontender, Normal Inspection. Negative for: CVA tenderness Extremities: Right great toe shows pain and inflammation at the metatarsophalangeal joint, there is slight erythema but no calor. It is tender to touch and the joint is tender when I move. There is no other sites of infection there is no lymphangitic streaking. This is consistent with gouty arthritis. Skin: Normal color, No rash Neurological: Alert, Normal Strength, Normal Sensation Psychological: Normal affect Const Vital Signs: 04/19/22 13:34 Temperature 98.2 F Temperature Source Temporal Pulse Rate 97 Respiratory Rate 16 Blood Pressure 139/96 H Blood Pressure Mean 110 Pulse Ox 94 Oxygen Delivery Method Room Air [facility] MDM Treatment and Re-Evaluation Narrative: Patient has classic gout and he has a history of gout I do not believe I need to do x-rays or further blood work. I will treat with 1 dose of colchicine and analgesia for home, he is over the age of 65 therefore I will defer NSAIDs. If anything worsens he is to return. Discharge Plan Triage Chief Complaint: Lower Extremity Injury ED Provider: Pritesh Robert Dx/Rx/DC Orders Clinical Impression: Great toe pain, Gout Instructions: ED Gout Prescriptions: New oxycodone-acetaminophen [Percocet] 5-325 mg tablet 1 tab PO Q6H PRN (Reason: pain) 3 Days Qty: 12 0RF Primary Care Provider: Care Physician,No Primary Referrals: Care Physician,No Primary [Primary Care Provider] - 2 Days Disposition Disposition: Home, Self Care
[2022-04-19] MEDS: Colchicine 0.6 MG TABLET PO (14:18)
== END 2022-04-19 14:19 | disposition home or self-care (01) ==
LOC: ED 14:00
PROVIDERS: Emergency Provider Emergency Medicine; Visit Provider Emergency Medicine
DX: M10.9 Gout, unspecified (principal); F17.210 Nicotine dependence, cigarettes, uncomplicated
CPT/HCPCS: 99282

== ENCOUNTER 2022-04-22 18:27 | Emergency (ER) | payer MEDICARE, MEDICAID, SELFPAY ==
[2022-04-22 18:28] VITALS: BP 145/99; PULSE 82; RESP 18; TEMP 35.9; O2SAT 100; BMI 26.4
--- NOTE | 2022-04-22 18:44 | ED.VIS.LOWEX ---
HPI History of Present Illness HPI Narrative: Atraumatic right great toe pain. Approximately last 4 days. History of gout. Chief Complaint: Lower Extremity Injury Informant: patient Occured/Mechanism Mechanism/Context: No injury and No blunt trauma Onset/Context/Timing Onset: Days Context: Gradual Onset Timing: Continuous Current Severity: Mild Maximum Severity: Mild Associated Symptoms Associated Symptoms: Negative for Parasthesia, Weakness or Loss of Funtion Narrative Narrative: 71-year-old male history of gout. Has atraumatic right great toe pain for the last 4 days. Denies any fever. Denies any injury. Prior similar symptoms: No Recent Illness/Hospitalization: No PFSH PFSH Medical History Arthritis History of hepatitis TBI (traumatic brain injury) Home Medications oxycodone-acetaminophen 5 mg-325 mg tablet (Percocet) 1 tab PO Q6H PRN pain 3 days #12 tabs 04/19/22 [Rx Last Taken Unknown] prednisone 20 mg tablet 40 mg PO DAILY 10 days #20 tabs 04/22/22 [Rx Last Taken Unknown] Allergy/AdvReac Type Severity Reaction Status Date / Time codeine Allergy Hives Verified 04/22/22 18:28 hydrocodone bitartrate Allergy Hives Verified 04/22/22 18:28 [From Vicodin] Surgical History H/O shoulder surgery History of surgery on wrist Social History Smoking Status: Current every day smoker tobacco type: cigarettes ROS ROS ED ROS Narrative Denies recent illness. Review of Systems ROS Unobtainable: Denies due to encephalopathy Constitutional Constitutional ED: Denies chills or fever(s) Eyes Eyes: Denies blurry vision ENT ENT ED: Denies ear pain Cardiovascular Cardiovascular: Denies chest pain Respiratory/Chest Respiratory/Chest: Denies cough Gastrointestinal Gastrointestinal: Denies abdominal pain Genitourinary Genitourinary ED: Denies dysuria or hematuria Musculoskeletal Musculoskeletal: Reports arthralgias Integumentary Denies abscess Neurologic Neurologic: Denies headache(s) Psychiatric Psychiatric: Denies anxiety Endocrine Endocrinology: Denies polydipsia Hematologic/Lymphatic Hematologic/Lymphatic: Denies easy bleeding Allergic/Immunologic Allergic/Immunologic ED: Denies mouth swelling EXAM Physical Exam Narrative Exam Narrative: 71-year-old male no acute distress. Vital signs stable afebrile. HEENT exam unremarkable. Lungs are clear. Heart regular rhythm rate about 80 no murmur. Abdomen soft nontender. Moving all 4 extremities. Neurovascular intact. Right foot right great toe mild redness swelling of the right great toe metatarsophalangeal joint consistent with gout. No lymphangitic streaking. No inguinal lymphadenopathy. No signs of trauma. He does have tinea of his toenails. Exam is consistent with gout. Const Vital Signs: 04/22/22 18:28 Temperature 96.6 F L Temperature Source Temporal Pulse Rate 82 Respiratory Rate 18 Blood Pressure 145/99 H Blood Pressure Mean 114 Pulse Ox 100 Oxygen Delivery Method Room Air Positive well nourished and well developed; Negative for obese, cachectic, contractures or unkempt General Appearance ED: well developed and NAD; Negative for unkempt, cachectic or contractures Nutritional Appearance: Negative for cachectic or obese HEENT Reports moist mucous membranes normocephalic and atraumatic; Negative for trauma or tenderness Eyes PERRL General Eye ED: Negative for other Neck full ROM and supple Thyroid: Negative for tender or other Lymph Lymphatic: Negative for other Chest Wall inspection of chest normal and palpation of chest normal Chest: Negative for other Resp normal respiratory effort, no retractions and clear to auscultation bilaterally Effort and Inspection: Negative for pain with movement Auscultation: Negative for rales, rhonchi or wheezes Percussion: Negative for other Cardio regular rate, regular rhythm, S1 normal heart sound, S2 normal heart sound and no murmurs Rate: Negative for bradycardia or tachycardic Rhythm: Negative for abnormal rhythm Bruits: Negative for other GI non-tender, non-distended and no masses Inspection: Negative for abdominal distention Auscultation: normoactive bowel sounds Palpation: soft; Negative for tender or guarding Extremity normal to inspection and full ROM Extremity Narrative: Except red, tender, swollen right great toe metatarsophalangeal joint. No lymphangitic streaking. No inguinal lymphadenopathy. Yeast infection of the toenails. General Extremety ED: Negative for cyanosis General Extremity: Negative for cyanosis Neuro oriented x3 and moves all extremities Sensorium / Orientation: alert, oriented to person, oriented to place and oriented to time; Negative for orientation impaired, confused or lethargic Motor Exam: strength 5/5 throughout Psych mental status grossly normal Appearance: Negative for unkempt Mood & Affect: Negative for anxious Skin no wounds Lesions: no lesions Rashes: no rashes Trauma: Negative for abrasion MDM MDM MDM Narrative Medical decision making narrative: 71-year-old gentleman with a history of gout appears to have gout of his right great toe. He is already on pain medication. He be placed on prednisone 40 mg here and 4 mg a day for the next 10 days. Follow-up if not improving. Return if worse. Discharge Plan Triage Chief Complaint: Lower Extremity Injury ED Provider: Lc Anthony Dx/Rx/DC Orders Clinical Impression: Gout Instructions: ED Gout Prescriptions: New prednisone 20 mg tablet 40 mg PO DAILY 10 Days Qty: 20 0RF No Action oxycodone-acetaminophen [Percocet] 5-325 mg tablet 1 tab PO Q6H PRN (Reason: pain) 3 Days Qty: 12 0RF Primary Care Provider: Care Physician,No Primary Referrals: Ming Gonzalez MD [Med Staff - Communication Manager] - 1 Week if not improving Care Physician,No Primary [Primary Care Provider] - Activity Restrictions/Additional Instructions: Appears to be gout of your right great toe. Prednisone 40 mg a day for the next 10 days. Start tomorrow. Follow-up with your doctor if not improving. Disposition Disposition: Home, Self Care
[2022-04-22] MEDS: predniSONE 20 MG Tablet 40 MG PO (18:52)
== END 2022-04-22 18:54 | disposition home or self-care (01) ==
PROVIDERS: Emergency Provider Emergency Medicine; Visit Provider Emergency Medicine
DX: M10.9 Gout, unspecified (principal); F17.210 Nicotine dependence, cigarettes, uncomplicated
CPT/HCPCS: 99283

== ENCOUNTER 2022-06-05 22:02 | Emergency (ER) | payer MEDICARE, MEDICAID, SELFPAY ==
[2022-06-05 22:03] VITALS: BP 148/102; PULSE 74; RESP 14; TEMP 35.7; O2SAT 98; BMI 30.7
--- NOTE | 2022-06-05 22:54 | EDS_ITS ---
HPI History of Present Illness Chief Complaint: Lower Extremity Injury Informant: patient Onset/Context/Timing Onset: Yesterday Context: Gradual Onset Timing: Continuous Quality of Pain: Aching Location: Right first toe Current Severity: Moderate Maximum Severity: Moderate Worsened by: Moving, palpation, walking Relieved by: Rest and remaining still Associated Symptoms Associated Symptoms: Negative for Parasthesia, Weakness or Loss of Funtion Narrative Narrative: Patient states he has a history of gout attacks in the right great toe, and he is experiencing that again, same as usual. Denies any recent injury, fevers, nidus for infection. He takes no medications. His PCP retired and he does not have 1. He does not take allopurinol. He states he has oxycodone that he was given in the past but he is interested in trying colchicine for this he heard it works well. [facility] Medical History (Updated 06/05/22 @ 23:[address] Sukhjinder Mehta MD) Arthritis Gout History of hepatitis TBI (traumatic brain injury) Home Medications colchicine 0.6 mg capsule 0.6 mg PO BID PRN gout pain #6 caps 06/05/22 [Rx Last Taken Unknown] prednisone 10 mg tablet 10 mg PO UD #30 tabs 06/05/22 [Rx Last Taken Unknown] Allergy/AdvReac Type Severity Reaction Status Date / Time codeine Allergy Hives Verified 06/05/22 22:03 hydrocodone bitartrate Allergy Hives Verified 06/05/22 22:03 [From Vicodin] Surgical History H/O shoulder surgery History of surgery on wrist Social History Smoking Status: Current every day smoker tobacco type: cigarettes ROS ROS ED Constitutional Constitutional ED: Denies chills or fever(s) Musculoskeletal Musculoskeletal: Reports extremity pain; Denies neck pain Integumentary Denies Abrasions, rash or wounds Neurologic Neurologic: Denies paresthesias or weakness EXAM Physical Exam Const Vital Signs: 06/05/22 22:03 Temperature 96.3 F L Temperature Source Temporal Pulse Rate 74 Respiratory Rate 14 Blood Pressure 148/102 H Blood Pressure Mean 117 Pulse Ox 98 Oxygen Delivery Method Room Air Positive well nourished and well developed General Appearance ED: well developed and NAD Neck full ROM and supple Back/Spine normal ROM and normal to inspection Extremity Extremity Narrative: Tender mildly swollen erythematous right first MTPJ. Very painful passive range of motion of the great toe, the other toes are benign and nontender, not painful to move. No lymphangitis. No nidus for infection. No abscess. Neuro oriented x3, no focal motor deficits and no sensory deficits noted Sensorium / Orientation: alert Psych mental status grossly normal and thought process normal Skin no wounds Skin Narrative: Warm erythema right great toe MTPJ Rashes: no rashes MDM MDM MDM Narrative Medical decision making narrative: His symptoms and exam are consistent with gout. I think given the joint that is affected it is reasonable to treat him empirically as gout. He was advised that a prednisone starts making things work to discontinue it and return to the ER immediately. He does not have diarrhea and if he develops it, he should discontinue the colchicine. He was given a dose of that here as well as prednisone, and a postop shoe. He was referred to a PCP, he used to see Dr. Bateman but he retired. Discharge Plan Triage Chief Complaint: Lower Extremity Injury ED Provider: Sukhjinder Mehta Dx/Rx/DC Orders Clinical Impression: Gouty arthritis of right great toe Instructions: ED Gout, ED Gout Diet Prescriptions: New prednisone 10 mg tablet 10 mg PO UD Qty: 30 0RF Rx Instructions: Take 4 tablets daily for 3 days, then 3 daily for 3 days, then 2 daily for 3 days, then 1 a day for 3 days colchicine 0.6 mg capsule 0.6 mg PO BID PRN (Reason: gout pain) Qty: 6 0RF Primary Care Provider: Care Physician,No Primary Referrals: Raquel Morejon DO [Med Staff - [employer]] - (call for follow up appt) Disposition Disposition: Home, Self Care
[2022-06-05] MEDS: predniSONE 20 MG Tablet 60 MG PO (23:09)
[2022-06-05] MEDS: Colchicine 0.6 MG TABLET 1.2 MG PO (23:09)
== END 2022-06-05 23:10 | disposition home or self-care (01) ==
PROVIDERS: Emergency Provider Emergency Medicine; Visit Provider Emergency Medicine
DX: M10.9 Gout, unspecified (principal); F17.210 Nicotine dependence, cigarettes, uncomplicated
CPT/HCPCS: 99284

== ENCOUNTER → 2022-08-09 | Outpatient (CLI) | payer MEDICARE, MEDICAID, SELFPAY ==
--- NOTE | 2022-08-09 14:15 | RAD_ITS ---
EXAM: XR LUMBOSACRAL SPINE, 2 OR 3 VIEWS CLINICAL INDICATION: LOW BACK PAIN TECHNIQUE: Frontal and lateral views of the lumbar spine and sacrum. This report was created using [employer] report generation technology. COMPARISON: None. FINDINGS: VERTEBRAE: There is curvature of the thoracic or lumbar spine. The orthopedic cement seen within L1. Preserved vertebral body height. No fracture. No spondylolisthesis. No significant facet arthropathy. DISC SPACES: There is multilevel disc space narrowing and osteophyte formation. GASTROINTESTINAL TRACT: Unremarkable as visualized. Included bowel gas pattern is non-obstructive. RAD/Lumbar Spine 2 or 3 Views IMPRESSION: Curvature of the thoracic or lumbar spine with degenerative changes. There are no acute osseous abnormalities. Electronically Signed: Jayy Goodwin MD at 23:39 EST ,
[2022-08-09 15:08] LABS: Anion Gap 6 (5-15); BUN 25 mg/dL (7-18); BUN/Creat Ratio 24.8 RATIO (10-20); Calcium,Total 9.2 mg/dL (8.5-10.1); Chloride 107 mmol/L (98-107); Creatinine, Serum 1.01 mg/dL (0.70-1.30); EST Glomerular Filtration Rate 78 mL/min (>60); Est Glom Filt Rate - Afr Amer 94 mL/min (>60); Glucose 89 mg/dL (74-106); Sodium Level 139 mmol/L (136-145)
== END | disposition home or self-care (01) ==
PROVIDERS: Visit Provider Nurse Practitioner Family
DX: M54.50 Low back pain, unspecified (principal)
CPT/HCPCS: 36415; 72100; 80048

== ENCOUNTER → 2022-10-18 | Outpatient (CLI) | payer MEDICARE, MEDICAID, SELFPAY ==
[2022-10-18 10:47] LABS: Cholesterol 145 mg/dL (200); High Density Lipoprotein 43 mg/dL; Triglycerides 86 mg/dL; Very Low Density Lipoprotein 17 mg/dL (5-40)
[2022-10-18 11:16] LABS: Hemoglobin A1c 5.8 % (3.8-5.6)
== END | disposition home or self-care (01) ==
LOC: LAB 10-19 12:06
PROVIDERS: Referring Provider Nurse Practitioner Family; Visit Provider Nurse Practitioner Family
DX: Z00.00 Encounter for general adult medical examination without abnormal findings (principal); Z82.49 Family history of ischemic heart disease and other diseases of the circulatory system; Z79.899 Other long term (current) drug therapy
CPT/HCPCS: 36415; 80061; 83036

== ENCOUNTER 2023-02-21 11:02 | Emergency (ER) | payer MEDICARE, MEDICAID, SELFPAY ==
[2023-02-21 11:03] VITALS: PULSE 92; RESP 18; TEMP 36.9; O2SAT 94; BMI 26.9
--- NOTE | 2023-02-21 11:14 | RAD_ITS ---
STUDY: X-RAY CHEST REASON FOR EXAM: Male, 72 years old. chest pain TECHNIQUE: Single AP portable view of the chest. COMPARISON: March 12, 2019 FINDINGS: The lungs are clear and expanded. There is no demonstrated pleural abnormality. Normal size heart. Normal mediastinum and olivia. Normal visualized pulmonary arteries. There is atherosclerotic calcification of the aortic arch with tortuosity. There are diffuse degenerative changes of the visualized thoracic spine. Healed fracture deformities of the bilateral clavicles. Cortical plate screw construct on the right which is fractured between the fourth and fifth screw. There is no demonstrated abnormality of the visualized soft tissue structures of the upper abdomen. RAD/Chest 1 View (Portable) IMPRESSION: Degenerative changes, as described above. No demonstrated acute cardiopulmonary process. Electronically Signed: Ovi Sheets MD at 12:11 EDT ,
[2023-02-21 11:25] VITALS: BP 131/90; PULSE 78; RESP 15; O2SAT 94
[2023-02-21] MEDS: Aspirin 81 MG TAB.CHEW 324 MG PO (11:30)
--- NOTE | 2023-02-21 11:36 | ED.VIS.CHEST ---
HPI History of Present Illness Chief Complaint: Chest Pain Narrative Narrative: 72-year-old male presenting with cough for 3 weeks. He states its been productive of sputum he states at times it is green and at times it is white. He denies any sort of fever. He is not short of breath. He has no nausea or vomiting. He does not feel unwell. He states yesterday he started having some pain on the right side of his chest which is worse when he is coughing. He states he called his sister who recommended that he go to the emergency room. He states he does not see his primary care doctor anymore because he retired and he does not make appointments for follow-up. He states he does not have any medical problems and does not take any medicine. [facility] Medical History Arthritis Gout History of hepatitis TBI (traumatic brain injury) Home Medications colchicine 0.6 mg capsule 0.6 mg PO BID PRN gout pain #6 caps 06/05/22 [Rx Last Taken Unknown] prednisone 10 mg tablet 10 mg PO UD #30 tabs 06/05/22 [Rx Last Taken Unknown] Allergy/AdvReac Type Severity Reaction Status Date / Time codeine Allergy Hives Verified 02/21/23 11:06 hydrocodone bitartrate Allergy Hives Verified 02/21/23 11:06 [From Vicodin] Surgical History H/O shoulder surgery History of surgery on wrist Social History Smoking Status: Current every day smoker tobacco type: cigarettes ROS ROS ED Constitutional Constitutional ED: Denies chills, fever(s) or sweats Eyes Eyes: Denies blurry vision or change in vision ENT ENT ED: Denies ear pain or sore throat Cardiovascular Cardiovascular: Reports chest pain; Denies palpitations or racing heartbeat Respiratory/Chest Respiratory/Chest: Reports cough and sputum; Denies dyspnea Gastrointestinal Gastrointestinal: Denies abdominal pain, constipation, diarrhea, nausea or vomiting Genitourinary Genitourinary ED: Denies dysuria, hematuria or urinary frequency Musculoskeletal Musculoskeletal: Denies arthralgias, myalgias or neck pain Integumentary Denies abscess, Abrasions or rash Neurologic Neurologic: Denies headache(s), paresthesias or weakness Psychiatric Psychiatric: Denies anxiety, depression, suicidal ideation or suicidal thoughts Endocrine Endocrinology: Denies polydipsia or polyuria EXAM Physical Exam Const Vital Signs: 02/21/23 11:03 02/21/23 11:25 02/21/23 11:25 Temperature 98.4 F Temperature Source Temporal Pulse Rate 92 78 Respiratory Rate 18 15 Respiratory Effort Blood Pressure 131/90 H Blood Pressure Mean 103 Pulse Ox 94 94 Oxygen Delivery Method Room Air Room Air 02/21/23 11:26 Temperature Temperature Source Pulse Rate Respiratory Rate Respiratory Effort Normal Non-Labored Blood Pressure Blood Pressure Mean Pulse Ox Oxygen Delivery Method Positive well nourished HEENT Reports moist mucous membranes normocephalic and atraumatic Eyes PERRL Chest Wall inspection of chest normal Resp normal respiratory effort and clear to auscultation bilaterally Auscultation: Negative for rales, rhonchi or wheezes Cardio regular rate and regular rhythm GI normal to inspection, nondistended, normoactive bowel sounds Extremity normal to inspection General Extremety ED: Negative for edema General Extremity: Negative for edema Neuro oriented x3 and CN's II-XII intact bilaterally Sensorium / Orientation: awake and alert Psych mental status grossly normal Skin no rashes or lesions noted and no wounds Heart Score History: Slightly/Non-Suspicious ECG: Normal Age: >/= 65 years Risk Factors: 1 or 2 Risk Factors Score: 3 MDM MDM MDM Narrative Medical decision making narrative: Patient presenting with right-sided chest pain. It has been painful since yesterday. It only hurts when he coughs. He had a cough for 3 weeks. Differential includes but is not limited to ACS, pneumonia, pneumothorax, muscle strain, costochondritis, CHF. CBC to assess white blood cell count, hemoglobin, platelets, differential. BMP to assess renal function, electrolytes, glucose, anion gap. High-sensitivity troponin and EKG to assess for ischemic changes or dysrhythmia. Chest x-ray to rule out pneumonia. Patient's lungs are clear to auscultation bilaterally. Heart regular rate and rhythm without murmur. Considered PE however he is PERC negative. CBC shows no significant leukocytosis. Hemoglobin hematocrit are stable. Platelets are normal. Renal function electrolytes unremarkable. High-sensitivity troponin is 6. EKG on my interpretation shows a normal sinus rhythm with a ventricular of 75 bpm without sign of ischemia or ectopy. Chest x-ray my interpretation shows no acute cardiopulmonary process. Radiologist interprets this and agrees. At this point I feel the patient is stable for discharge. I do not think he needs a delta troponin. He is counseled on follow-up and return precautions. Impression: 1. Chest wall pain 2. Cough Lab Data Attestation: I reviewed the patient's lab results. Labs: Laboratory Results - last 24 hr 02/21/23 02/21/23 11:30 11:30 WBC 11.6 H RBC 4.63 Hgb 14.4 Hct 42.2 MCV 91.1 MCH 31.1 MCHC 34.1 RDW Std Deviation 41.1 RDW Coeff of Tova 12.5 Plt Count 277 MPV 9.4 Immature Gran % (Auto) 0.300 Neut % (Auto) 73.6 H Lymph % (Auto) 16.6 L Pennington % (Auto) 6.7 Eos % (Auto) 1.9 Baso % (Auto) 0.9 Absolute Neuts (auto) 8.5 H Absolute Lymphs (auto) 1.92 Nucleated RBC % 0 Sodium 142 Potassium 3.9 Chloride 111 H Carbon Dioxide 26.0 Anion Gap 5 BUN 24 H Creatinine 1.04 Estim Creat Clear Calc 57.49 Est GFR (MDRD) Af Amer 91 Est GFR (MDRD) Non-Af 75 BUN/Creatinine Ratio 23.1 H Glucose 121 H Calcium 9.5 Troponin I High Sens 6 Radiography Diagnostic Testing: Clinical Impression(s) from Imaging Studies Chest X-Ray 02/21/23 11:14 IMPRESSION: Degenerative changes, as described above. No demonstrated acute cardiopulmonary process. Electronically Signed: Ovi Sheets MD at 12:11 EDT , Discharge Plan Triage Chief Complaint: Chest Pain ED Provider: Kei Avendano Dx/Rx/DC Orders Instructions: Coughing Techniques, ED Chest Wall Pain, Costochondritis Prescriptions: No Action prednisone 10 mg tablet 10 mg PO UD Qty: 30 0RF Rx Instructions: Take 4 tablets daily for 3 days, then 3 daily for 3 days, then 2 daily for 3 days, then 1 a day for 3 days colchicine 0.6 mg capsule 0.6 mg PO BID PRN (Reason: gout pain) Qty: 6 0RF Primary Care Provider: Medical Lara Bullard Referrals: [facility] [Primary Care Provider] - Disposition Disposition: Home, Self Care
[2023-02-21 11:43] LABS: Absolute Lymphocyte Count 1.92 X10^3/uL (0.83-4.51); Absolute Neutrophil Count 8.5 X10^3/uL (2.0-7.7); Basophil% 0.9 % (0-1); Eosinophil# 0.22 X10^3/uL; Eosinophils% 1.9 % (0-5); Hematocrit 42.2 % (40-54); Hemoglobin 14.4 g/dL (13.0-16.5); Lymphocyte # 1.92 X10^3/ul (0.83-4.51); Lymphocyte % 16.6 % (19-41); Mean Corp Hgb Conc 34.1 g/dL (32-36); Mean Corpuscular Hgb 31.1 pg (27.0-32.0); Mean Corpuscular Volume 91.1 fL (80-94); Mean Platelet Vol. 9.4 fl (6.2-12.0); Monocyte# 0.78 X10^3/uL; Monocyte% 6.7 % (0-10); NRBC Flagged by Analyzer 0 % (0-5); Neutrophil # 8.54 X10^3/uL (2.7-7.7); Neutrophil % 73.6 % (47-70); Platelet Count 277 K/mm3 (150-450); RBC Distribution Width CV 12.5 % (11.6-14.6); RBC Distribution Width SD 41.1 fl (35.1-43.9); Red Blood Count 4.63 M/mm3 (4.6-6.2); White Blood Count 11.6 K/mm3 (4.4-11.0)
[2023-02-21 12:03] LABS: Anion Gap 5 (5-15); BUN 24 mg/dL (7-18); BUN/Creat Ratio 23.1 RATIO (10-20); Calcium,Total 9.5 mg/dL (8.5-10.1); Chloride 111 mmol/L (98-107); Creatinine, Serum 1.04 mg/dL (0.70-1.30); EST Glomerular Filtration Rate 75 mL/min (>60); Est Glom Filt Rate - Afr Amer 91 mL/min (>60); Estimated Creatinine Clearance 57.49 ml/min; Glucose 121 mg/dL (74-106); Potassium 3.9 mmol/L (3.5-5.1); Sodium Level 142 mmol/L (136-145); Troponin-I HS 6 pg/mL (3.0-78.0)
[2023-02-21 13:03] VITALS: BP 136/91
== END 2023-02-21 13:11 | disposition home or self-care (01) ==
PROVIDERS: Emergency Provider Student in an Organized Health Care Education/Training Program; Visit Provider Student in an Organized Health Care Education/Training Program
DX: R07.89 Other chest pain (principal); R05.9 Cough, unspecified; F17.210 Nicotine dependence, cigarettes, uncomplicated
CPT/HCPCS: 71045; 80048; 84484; 85025; 93005; 99285

== ENCOUNTER 2023-08-17 11:48 | Emergency (ER) | payer MEDICARE, MEDICAID, SELFPAY ==
[2023-08-17 11:49] VITALS: BP 150/109; PULSE 89; RESP 18; TEMP 36.4; O2SAT 93; BMI 26.8
--- NOTE | 2023-08-17 11:59 | EKG12_ITS ---
Test Reason : CP Blood Pressure : / mmHG Vent. Rate : 076 BPM Atrial Rate : 076 BPM P-R Int : 174 ms QRS Dur : 062 ms QT Int : 368 ms P-R-T Axes : 039 -27 077 degrees QTc Int : 414 ms Normal sinus rhythm Low voltage QRS Borderline ECG Confirmed by NATHAN SHETTY, BRIDGET ([id number]), desk editor NABIL LOCKE ([id number]) on 08/20/2023 1:34:02 P M Referred By: NORMA/SATHISH Confirmed By:RADHA EVANS MD
--- NOTE | 2023-08-17 12:00 | ED.VIS.CHEST ---
HPI History of Present Illness Chief Complaint: Chest Pain Narrative Narrative: 73-year-old male who denies significant past medical history except for being a smoker, states she does not take daily medications except for caffeine and nicotine, presents with chest pain which she describes more as a tightness and/or pressure. Denies any fevers or chills, he has an occasional cough. No nausea or vomiting associated with this. No exertional component. No true shortness of breath or diaphoresis. He denies any leg swelling. He states that he was seen in the emergency department a few months ago, had coughed really hard, and maybe had a chest wall pain, and after workup was told that everything looked okay with his heart and lungs. [facility] Medical History Arthritis Gout History of hepatitis TBI (traumatic brain injury) Home Medications colchicine 0.6 mg capsule 0.6 mg PO BID PRN gout pain #6 caps 06/05/22 [Rx Last Taken Unknown] prednisone 10 mg tablet 10 mg PO UD #30 tabs 06/05/22 [Rx Last Taken Unknown] albuterol sulfate 90 mcg/actuation aerosol inhaler (Ventolin HFA) 1 - 2 puff inhalation Q4H PRN PRN Wheezing #1 ea 08/17/23 [Rx Last Taken Unknown] Allergy/AdvReac Type Severity Reaction Status Date / Time codeine Allergy Hives Verified 08/17/23 11:49 hydrocodone bitartrate Allergy Hives Verified 08/17/23 11:49 [From Vicodin] Surgical History H/O shoulder surgery History of surgery on wrist Social History Smoking Status: Current every day smoker tobacco type: cigarettes ROS ROS ED ROS Narrative Constitutional: No fever, no chills. HEENT: No sore throat. No neck pain. No loss of vision. No rhinorrhea. Cardiovascular: Chest tightness, pressure, chest pain. No palpitations. No pedal edema. Respiratory: Patient cough, no shortness of breath. Abdominal: No abdominal pain. No nausea. No vomiting. Genitourinary: No dysuria. No hematuria. Musculoskeletal: No myalgias. No arthralgias. Neurologic: No headaches. No dizziness. No lightheadedness. Skin: No rash. No change in color. Psychiatric: No depression. No anxiety. EXAM Physical Exam Narrative Exam Narrative: Afebrile. Vital signs noted. HEENT: Normocephalic. Atraumatic. PERRL, EOMI. Neck soft and supple. No point tenderness or step off. Cardiovascular: Regular rate and rhythm. No murmurs, rubs, or gallops appreciated. No crepitance on palpation. Respiratory: No tachypnea. Lungs clear to auscultation bilaterally. Please breath sounds bilateral bases. Gastrointestinal: Abdomen soft, nontender, with normoactive bowel sounds. No rebound or guarding. Neurological: Awake. Alert. Nonfocal, nonlateralizing. Skin: No rash. Normal color. No pallor. Musculoskeletal: No pedal edema. Full range of motion extremities. Const Vital Signs: 08/17/23 11:49 08/17/23 12:07 08/17/23 12:15 Temperature 97.5 F L Temperature Source Temporal Pulse Rate 89 90 Respiratory Rate 18 16 Respiratory Effort Respiratory Pattern Normal Blood Pressure 150/109 H Blood Pressure Mean 122 Pulse Ox 93 96 Oxygen Delivery Method Room Air Room Air 08/17/23 12:36 Temperature Temperature Source Pulse Rate Respiratory Rate Respiratory Effort Normal Non-Labored Respiratory Pattern Blood Pressure Blood Pressure Mean Pulse Ox Oxygen Delivery Method MDM MDM MDM Narrative Medical decision making narrative: In the differential diagnosis is acute coronary syndrome/anginal symptoms versus pneumonia versus pneumothorax versus COPD. He does not have a diagnosis but it may be undiagnosed as he continues to smoke cigarettes. His pulse ox is 93% on room air. I have low suspicion for pulmonary embolism. Additionally, it does not sound like he has pneumonia as he does not have fever or productive cough with this. History and physical does not also support pneumothorax and he has equal breath sounds bilaterally. Chest pain workup will be pursued given his age. I do feel that he will require serial troponins and a BNP to help rule out CHF, but he does not have history of this as well. EKG was obtained and interpreted by myself independently as normal sinus rhythm at 76 bpm without ectopy or acute ST changes. No STEMI. I reviewed his laboratory work from today. He has normal white count 9.8, hemoglobin normal at 14.8, platelet count normal at 259. Review of his electrolyte panel shows chloride slightly elevated at 108 which I think is nonspecific BUN of 22 with a creatinine of 1.16. Glucose appropriately elevated at 95. Initial high-sensitivity troponin is 7 with a BNP normal at 18.3. Chest x-ray in 1 view interpreted by myself independently shows no evidence of acute pneumonia or pneumothorax. I reviewed the radiology report which confirms my independent interpretation. His 2-hour troponin is 5. He did receive a DuoNeb aerosolized treatment as I think he may have undiagnosed COPD. Upon repeat examination after, he states he feels improved. He will be given an albuterol MDI 2 puffs inhaled and the remainder dispensed to him to use every 4-6 hours. Additionally, I did write him another prescription for an albuterol inhaler. He will follow-up with pulmonology as needed. Smoking cessation was discussed. He did state that he has used an inhaler in the past and thinks he may have COPD. I do not feel steroids are indicated currently. He had an increase of his oxygenation to 96% on room air. I feel he be discharged to follow-up with a primary care physician, and pulmonology. Return instructions to the emergency department were reviewed. Disposition is discharged home in stable condition. History & Record Review Discussion w/independent historian: Patient Additional record(s) reviewed:: Prior ED visit Lab Data Attestation: I reviewed the patient's lab results. Labs: Laboratory Results - last 24 hr 08/17/23 08/17/23 12:13 14:19 WBC 9.8 RBC 4.73 Hgb 14.8 Hct 42.8 MCV 90.5 MCH 31.3 MCHC 34.6 RDW Std Deviation 42.5 RDW Coeff of Tova 12.8 Plt Count 259 MPV 9.5 Immature Gran % (Auto) 0.300 Neut % (Auto) 69.1 Lymph % (Auto) 21.4 [place] % (Auto) 6.5 Eos % (Auto) 1.8 Baso % (Auto) 0.9 Absolute Neuts (auto) 6.8 Absolute Lymphs (auto) 2.10 Nucleated RBC % 0 Sodium 139 Potassium 4.0 Chloride 108 H Carbon Dioxide 27.0 Anion Gap 4 L BUN 22 H Creatinine 1.16 Estim Creat Clear Calc 50.81 Est GFR (MDRD) Af Amer 80 Est GFR (MDRD) Non-Af 66 BUN/Creatinine Ratio 19.0 Glucose 95 Calcium 9.3 Troponin I High Sens 7 5 B-Natriuretic Peptide 18.3 Radiography Diagnostic Testing: Clinical Impression(s) from Imaging Studies Chest X-Ray 08/17/23 12:25 IMPRESSION: No acute abnormality is seen. Electronically Signed: Alvin Topete MD at 12:40 EST , Discharge Plan Triage Chief Complaint: Chest Pain ED Provider: Luis Mitchell Dx/Rx/DC Orders Clinical Impression: Cough, Chest tightness, COPD (chronic obstructive pulmonary disease), Tobacco use, Chest pain Instructions: ED COPD Flare, ED Chest Pain, Uncertain Cause Prescriptions: New albuterol sulfate [Ventolin HFA] 90 mcg/actuation HFA aerosol inhaler 1 - 2 puff inhalation Q4H PRN PRN (Reason: Wheezing) Qty: 1 0RF No Action prednisone 10 mg tablet 10 mg PO UD Qty: 30 0RF Rx Instructions: Take 4 tablets daily for 3 days, then 3 daily for 3 days, then 2 daily for 3 days, then 1 a day for 3 days colchicine 0.6 mg capsule 0.6 mg PO BID PRN (Reason: gout pain) Qty: 6 0RF Primary Care Provider: Care Physician,No Primary Referrals: Arcenio Dominguez MD [Med Staff - Active Staff] - [facility] soon as possible [facility] [Non-Staff] - Activity Restrictions/Additional Instructions: Stop Smoking. Did use the albuterol inhaler 1 to 2 puffs every 4-6 hours as needed for shortness of breath or chest tightness Disposition Disposition: Home, Self Care
[2023-08-17] MEDS: Ipratropium/Albuterol Sulfate 3 ML AMPUL.NEB INHALATION (12:05)
[2023-08-17 12:07] VITALS: PULSE 90; RESP 16
[2023-08-17 12:15] VITALS: O2SAT 96
--- NOTE | 2023-08-17 12:25 | RAD_ITS ---
STUDY: X-RAY CHEST REASON FOR EXAM: Male, 73 years old. Chest pain TECHNIQUE: Single AP portable view of the chest. COMPARISON: Comparison is made with prior study dated February 21, 2023. FINDINGS: EKG electrodes are seen. The lungs are clear and expanded. There is no demonstrated pleural abnormality. Normal size heart. Normal mediastinum and olivia. Normal visualized pulmonary arteries. There is atherosclerotic calcification of the aortic arch with tortuosity. There are diffuse degenerative changes of the visualized thoracic spine. Prior open reduction internal fixation of the right mid clavicular fracture. There is no demonstrated abnormality of the visualized soft tissue structures of the upper abdomen. RAD/Chest 1 View (Portable) IMPRESSION: No acute abnormality is seen. Electronically Signed: Alvin Topete MD at 12:40 EST ,
[2023-08-17 12:26] LABS: Absolute Neutrophil Count 6.8 X10^3/uL (2.0-7.7); Basophil# 0.09 X10^3/uL; Basophil% 0.9 % (0-1); Eosinophil# 0.18 X10^3/uL; Eosinophils% 1.8 % (0-5); Hematocrit 42.8 % (40-54); Hemoglobin 14.8 g/dL (13.0-16.5); Lymphocyte % 21.4 % (19-41); Mean Corp Hgb Conc 34.6 g/dL (32-36); Mean Corpuscular Hgb 31.3 pg (27.0-32.0); Mean Corpuscular Volume 90.5 fL (80-94); Mean Platelet Vol. 9.5 fl (6.2-12.0); Monocyte# 0.64 X10^3/uL; Monocyte% 6.5 % (0-10); NRBC Flagged by Analyzer 0 % (0-5); Neutrophil # 6.78 X10^3/uL (2.7-7.7); Neutrophil % 69.1 % (47-70); Platelet Count 259 K/mm3 (150-450); RBC Distribution Width CV 12.8 % (11.6-14.6); RBC Distribution Width SD 42.5 fl (35.1-43.9); Red Blood Count 4.73 M/mm3 (4.6-6.2); White Blood Count 9.8 K/mm3 (4.4-11.0)
[2023-08-17 12:35] LABS: Anion Gap 4 (5-15); BUN 22 mg/dL (7-18); Calcium,Total 9.3 mg/dL (8.5-10.1); Chloride 108 mmol/L (98-107); Creatinine, Serum 1.16 mg/dL (0.70-1.30); EST Glomerular Filtration Rate 66 mL/min (>60); Est Glom Filt Rate - Afr Amer 80 mL/min (>60); Estimated Creatinine Clearance 50.81 ml/min; Glucose 95 mg/dL (74-106); Sodium Level 139 mmol/L (136-145); Troponin-I HS (w/2H Reflex) 7 pg/mL (3.0-78.0)
[2023-08-17] MEDS: Aspirin 81 MG TAB.CHEW 324 MG PO (12:42)
[2023-08-17 12:48] LABS: BNP,B-Type NATRIURETIC PEPTIDE 18.3 pg/mL (0-100)
[2023-08-17 14:16] LABS: Reflex Troponin-HS? (from REC) Y
[2023-08-17 14:42] LABS: Troponin-I HS 5 pg/mL (3.0-78.0)
[2023-08-17] MEDS: Albuterol Sulfate 8 gm Inhaler (60 puffs) 2 PUFF INHALATION (15:01)
[2023-08-17 15:03] VITALS: BP 153/105; PULSE 56; RESP 18; O2SAT 98
== END 2023-08-17 15:04 | disposition home or self-care (01) ==
PROVIDERS: Emergency Provider Emergency Medicine; Visit Provider Emergency Medicine
DX: R05.9 Cough, unspecified (principal); J44.9 Chronic obstructive pulmonary disease, unspecified; R07.89 Other chest pain; F17.210 Nicotine dependence, cigarettes, uncomplicated
CPT/HCPCS: 71045; 80048; 83880; 84484; 85025; 93005; 94640; 99284; A4216

== ENCOUNTER → 2023-09-14 | Outpatient (CLI) | payer MEDICARE, MEDICAID, SELFPAY ==
--- NOTE | 2023-09-14 14:20 | RAD_ITS ---
STUDY: X-RAY - LUMBAR SPINE REASON FOR EXAM: Male, 73 years old. LUMBAR RADICULOPATHY TECHNIQUE: 5 view(s) of the lumbar spine were obtained. COMPARISON: August 09, 2022 FINDINGS: Normal lumbar lordosis. Moderate dextroconvex scoliosis unchanged. Compression fracture and vertebral plasty at T12 unchanged. There is a normal alignment of the vertebrae. Normal vertebral bodies and endplates. Normal disc space heights. The soft tissue structures are unremarkable. RAD/L/S Spine Min 4 Views IMPRESSION: Moderate scoliosis. Fracture and vertebral plasty T12 unchanged. Electronically Signed: Gian Izaugirre MD at 23:02 EST ,
== END | disposition home or self-care (01) ==
LOC: RAD 14:18
PROVIDERS: Referring Provider Chiropractor; Visit Provider Chiropractor
DX: M54.16 Radiculopathy, lumbar region (principal)
CPT/HCPCS: 72110

== ENCOUNTER 2023-09-18 12:19 | Outpatient (RCR) | payer MEDICARE, MEDICAID, SELFPAY ==
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
--- NOTE | 2024-01-02 12:34 | HP.PT.NRP(2) ---
Patient Information Patient Information: AYRAN BROCK was seen in my office for initial evaluation on . The following Plan of Care was established for this patient: Last Seen Last Seen: This patient was last seen in our office . Pertinent comments regarding their Physical therapy will appear below: At this point I will be discontinuing this patient from physical therapy. I would be happy to see this patient again in the future if found appropriate by the physician. Thank you! Olga Bosch, MPT
== END 2023-09-18 19:00 | disposition home or self-care (01) ==
LOC: PT 12:19
PROVIDERS: Referring Provider Chiropractor; Visit Provider Chiropractor
DX: M51.16 Intervertebral disc disorders with radiculopathy, lumbar region
CPT/HCPCS: 97161

== ENCOUNTER 2024-09-13 12:10 | Inpatient (IN) | payer MEDICARE, MEDICAID, SELFPAY ==
[2024-09-13] VITALS (10 sets, daily range): BP systolic 116–133; BP diastolic 87–101; PULSE 66–109; RESP 16–25; TEMP 36.6–37.2; O2SAT 92–95; BMI 25.2
--- NOTE | 2024-09-13 12:28 | EKG12_ITS ---
Test Reason : SOB Blood Pressure : */* mmHG Vent. Rate : 94 BPM Atrial Rate : 94 BPM P-R Int : 172 ms QRS Dur : 62 ms QT Int : 336 ms P-R-T Axes : 47 4 77 degrees QTcB Int : 420 ms Normal sinus rhythm Low voltage QRS Septal infarct , age undetermined Abnormal ECG Confirmed by RACHEL SHETTY, SIMON ([id number]), assistant production editor JOHN WAYNE ([id number]) on 09/15/2024 1:55:09 PM Referred By: Confirmed By: SIMON RAMOS MD
--- NOTE | 2024-09-13 12:29 | EX.ED.DYSGE1 ---
HPI <MARILU Rea - Last Filed: 09/13/24 14:23> History of Present Illness Chief Complaint: Cough Narrative Narrative: 74-year-old male with past medical history of COPD, smokes 1 pack/day presents with a productive cough that has been ongoing for about 16 days. He occasionally has dyspnea on exertion. He states he is had mild sporadic chest pressure. He went to urgent care and was noted to be hypoxic on room air and sent here for evaluation. He does not wear home oxygen. He states he has not seen a primary care doctor in a long time. He does not use an inhaler or nebulizer. PFSH <MARILU Rea - Last Filed: 09/13/24 14:23> PFSH Medical History History of alcohol abuse COPD (chronic obstructive pulmonary disease) TIA (transient ischemic attack) Angioma Tobacco use Gout History of hepatitis TBI (traumatic brain injury) Arthritis Home Medications ?Medication ?Instructions ?Recorded ?Last Taken ?Type NK 09/13/24 Unknown History Allergy/AdvReac Type Severity Reaction Status Date / Time codeine Allergy Hives Verified 09/13/24 12:17 hydrocodone bitartrate (From Allergy Hives Verified 09/13/24 12:17 Vicodin) Family History Mother No problems noted. Father No problems noted. Family History other Surgical History S/P craniotomy H/O shoulder surgery History of surgery on wrist Social History household members: none Smoking Status: Current every day smoker tobacco type: cigarettes Smoking packs per day: 1 Smoking cigarettes per day: 20.0 alcohol intake: former details: Sober 42-43 years. substance use type: does not use ROS <MARILU Rea - Last Filed: 09/13/24 14:23> ROS ED ROS Narrative Constitutional: Negative for fever, chills, malaise. CVS: Positive for chest pain. No palpitations or syncope. Respiratory: Positive for dyspnea on exertion, cough. GI: Negative for abdominal pain, nausea, vomiting, diarrhea. EXAM <MARILU Rea - Last Filed: 09/13/24 14:23> Physical Exam Narrative Exam Narrative: CONST: Patient sitting in no acute distress. EYES: Normal inspection. NECK: Normal inspection. RESP: No respiratory distress, diffuse expiratory wheezing, crackles right lung base. No retractions. CVS: Regular rate and rhythm, no murmur, no gallop. SKIN: Color normal, no rash, warm, dry, intact. EXTREMITIES: Normal appearance, no pedal edema. NEURO: Alert and answering questions appropriately. PSYCH: Normal affect. Const Vital Signs: 09/13/24 12:12 09/13/24 12:45 09/13/24 12:46 Temperature 97.9 F Temperature Source Oral Pulse Rate 109 H Respiratory Rate 22 H Respiratory Effort Short of Breath Respiratory Depth Normal Respiratory Pattern Tachypnea Blood Pressure 116/94 H Blood Pressure Mean 101 Pulse Ox 92 92 Oxygen Delivery Method Nasal Cannula Nasal Cannula Nasal Cannula Oxygen Flow Rate (L/min) 2 2 2 09/13/24 12:46 09/13/24 13:00 09/13/24 14:00 Temperature 97.9 F 98.7 F Temperature Source Oral Oral Pulse Rate 88 98 80 Respiratory Rate 19 H 20 H 18 Respiratory Effort Respiratory Depth Respiratory Pattern Normal Blood Pressure 124/101 H 118/95 H Blood Pressure Mean 109 102 Pulse Ox 92 92 Oxygen Delivery Method Nasal Cannula Nasal Cannula Oxygen Flow Rate (L/min) 2 2 <Dr. Tito Garay DO - Last Filed: 09/13/24 19:46> Physical Exam Const Vital Signs: 09/13/24 12:12 09/13/24 12:45 09/13/24 12:46 Temperature 97.9 F Temperature Source Oral Pulse Rate 109 H Respiratory Rate 22 H Respiratory Effort Short of Breath Respiratory Depth Normal Respiratory Pattern Tachypnea Blood Pressure 116/94 H Blood Pressure Mean 101 Pulse Ox 92 92 Oxygen Delivery Method Nasal Cannula Nasal Cannula Nasal Cannula Oxygen Flow Rate (L/min) 2 2 2 09/13/24 12:46 09/13/24 13:00 09/13/24 14:00 Temperature 97.9 F 98.7 F Temperature Source Oral Oral Pulse Rate 88 98 80 Respiratory Rate 19 H 20 H 18 Respiratory Effort Respiratory Depth Respiratory Pattern Normal Blood Pressure 124/101 H 118/95 H Blood Pressure Mean 109 102 Pulse Ox 92 92 Oxygen Delivery Method Nasal Cannula Nasal Cannula Oxygen Flow Rate (L/min) 2 2 MDM <MARILU Rea - Last Filed: 09/13/24 14:23> [facility] Narrative Medical decision making narrative: 74-year-old male with COPD presents with 16-day history of productive cough which has worsened with intermittent dyspnea on exertion. He was sent here due to new onset hypoxia around 88% on room air. He appears well and nontoxic. He is saturating around 92% on 2 L, heart rate 109, otherwise stable vital signs. He has expiratory wheezing throughout. Labs show white count of 18.3, creatinine 1.51 which is up from prior level at 1.16. Lactic is 1.5. On my review of his chest x-ray has a new right lower lobe infiltrate. Viral swab is negative. I ordered blood cultures and IV Rocephin and Zithromax as well as DuoNebs for wheezing. Patient is still requiring 2 L O2 and case will be discussed with the hospitalist for admission for pneumonia and hypoxia. Differential includes but not limited to bronchitis, pneumonia, COPD exacerbation ED attending interpretation of 1 view chest x-ray shows normal heart size with right lower lobe infiltrate which appears new from 08/17/2023. Radiologist read it as negative, however since clinically he has a worsening cough, leukocytosis, and I think there is a new infiltrate I treated with Rocephin and Zithromax. Lab Data Attestation: I reviewed the patient's lab results. Labs: Laboratory Results - last 24 hr 09/13/24 09/13/24 09/13/24 12:39 13:15 13:48 WBC 18.3 H RBC 4.72 Hgb 14.9 Hct 42.2 MCV 89.4 MCH 31.6 MCHC 35.3 RDW Std Deviation 40.4 RDW Coeff of Tova 12.3 Plt Count 385 MPV 9.3 Immature Gran % (Auto) 0.300 Neut % (Auto) 78.2 H Lymph % (Auto) 12.2 L Warren % (Auto) 7.7 Eos % (Auto) 0.9 Baso % (Auto) 0.7 Absolute Neuts (auto) 14.3 H Absolute Lymphs (auto) 2.24 Nucleated RBC % 0 Sodium 135 L Potassium 4.4 Chloride 104 Carbon Dioxide 26.0 Anion Gap 5 BUN 31 H Creatinine 1.51 H Estim Creat Clear Calc 38.47 Est GFR (MDRD) Af Amer 59 L Est GFR (MDRD) Non-Af 49 L BUN/Creatinine Ratio 20.5 H Glucose 132 H Lactic Acid 1.5 Calcium 9.5 Troponin I High Sens 4 Procalcitonin 0.12 H Radiography Diagnostic Testing: Clinical Impression(s) from Imaging Studies Chest X-Ray 09/13/24 12:45 IMPRESSION: 1. No acute findings in the chest. 2. No significant interval change. Electronically Signed: Luis Canchola MD at 13:27 EST , EKG Initial EKG: Attestation: I personally reviewed and interpreted this EKG as follows: Interpretation: Sinus Rhythm and No Acute Injury Pattern Comments: Normal sinus rhythm at 94 bpm Normal intervals, no acute ischemic changes <Dr. Tito Garay, DO - Last Filed: 09/13/24 19:46> MDM MDM Narrative Medical decision making narrative: 74-year-old male with COPD presents with 16-day history of productive cough which has worsened with intermittent dyspnea on exertion. He was sent here due to new onset hypoxia around 88% on room air. He appears well and nontoxic. He is saturating around 92% on 2 L, heart rate 109, otherwise stable vital signs. He has expiratory wheezing throughout. Labs show white count of 18.3, creatinine 1.51 which is up from prior level at 1.16. Lactic is 1.5. On my review of his chest x-ray has a new right lower lobe infiltrate. Viral swab is negative. I ordered blood cultures and IV Rocephin and Zithromax as well as DuoNebs for wheezing. Patient is still requiring 2 L O2 and case will be discussed with the hospitalist for admission for pneumonia and hypoxia. Differential includes but not limited to bronchitis, pneumonia, COPD exacerbation ED attending interpretation of 1 view chest x-ray shows normal heart size with right lower lobe infiltrate which appears new from 08/17/2023. Radiologist read it as negative, however since clinically he has a worsening cough, leukocytosis, and I think there is a new infiltrate I treated with Rocephin and Zithromax. ED attending note: I evaluated the patient in conjunction with the STACE[facility]. I agree with his/her statements and above findings. I have personally performed a face to face assessment of the patient and have reviewed the STACEY Note. I performed a substantive portion of the visit including all aspects of the following. I personally saw the patient performed chart review, physical exam, reviewed labs, imaging (if obtained), and formulated a treatment and management plan. Chest x-ray was read reviewed personally myself showed evidence of a right lower lobe infiltrate concerning for pneumonia. This is consistent with the patient's history of shortness of breath, cough, leukocytosis. Will give broad-spectrum antibiotics and admit for further treatment given hypoxia This note was generated with [employer] dictation software. It may contain incorrect words, spelling, and punctuation that were not noted in review of the chart prior to signing. Lab Data Labs: Laboratory Results - last 24 hr 09/13/24 09/13/24 09/13/24 12:39 13:15 13:48 WBC 18.3 H RBC 4.72 Hgb 14.9 Hct 42.2 MCV 89.4 MCH 31.6 MCHC 35.3 RDW Std Deviation 40.4 RDW Coeff of Tova 12.3 Plt Count 385 MPV 9.3 Immature Gran % (Auto) 0.300 Neut % (Auto) 78.2 H Lymph % (Auto) 12.2 L Warren % (Auto) 7.7 Eos % (Auto) 0.9 Baso % (Auto) 0.7 Absolute Neuts (auto) 14.3 H Absolute Lymphs (auto) 2.24 Nucleated RBC % 0 Sodium 135 L Potassium 4.4 Chloride 104 Carbon Dioxide 26.0 Anion Gap 5 BUN 31 H Creatinine 1.51 H Estim Creat Clear Calc 38.47 Est GFR (MDRD) Af Amer 59 L Est GFR (MDRD) Non-Af 49 L BUN/Creatinine Ratio 20.5 H Glucose 132 H Lactic Acid 1.5 Calcium 9.5 Troponin I High Sens 4 Procalcitonin 0.12 H Radiography Diagnostic Testing: Clinical Impression(s) from Imaging Studies Chest X-Ray 09/13/24 12:45 IMPRESSION: 1. No acute findings in the chest. 2. No significant interval change. Electronically Signed: Luis Canchola MD at 13:27 EST , Discharge Plan Dx/Rx/DC Orders Clinical Impression: Pneumonia, Tobacco use, Chronic obstructive pulmonary disease with (acute) exacerbation, Hypoxia Disposition Disposition: Acute Care Hospital [facility] Discharge Date/Time: 09/13/24 15:27
[2024-09-13] MEDS: Ipratropium/Albuterol Sulfate 3 ML AMPUL.NEB INHALATION ×2 (12:43→19:23)
--- NOTE | 2024-09-13 12:45 | RAD_ITS ---
EXAM: XR CHEST, 1 VIEW CLINICAL INDICATION: cough TECHNIQUE: Frontal view of the chest. COMPARISON: 08/17/2023. FINDINGS: LUNGS AND PLEURAL SPACES: Unremarkable. No consolidation or edema. No pneumothorax. No effusion. HEART: Unremarkable. Cardiac silhouette not enlarged. MEDIASTINUM: Central airways and mediastinal contour are unremarkable. BONES/JOINTS: Metallic plates with transfixing screws in the old fracture of the right clavicle. Old fracture deformity of the left mid clavicle. Multiple old fractures of the bilateral rib cage. Old fracture deformity in the greater tubercle of the right humeral head. SOFT TISSUES: Unremarkable. RAD/Chest 1 View (Portable) IMPRESSION: 1. No acute findings in the chest. 2. No significant interval change. Electronically Signed: Luis Canchola MD at 13:27 EST ,
[2024-09-13 12:48] LABS: Absolute Lymphocyte Count 2.24 X10^3/uL (0.83-4.51); Absolute Neutrophil Count 14.3 X10^3/uL (2.0-7.7); Basophil# 0.13 X10^3/uL; Basophil% 0.7 % (0-1); Eosinophil# 0.16 X10^3/uL; Eosinophils% 0.9 % (0-5); Hematocrit 42.2 % (40-54); Hemoglobin 14.9 g/dL (13.0-16.5); Lymphocyte # 2.24 X10^3/ul (0.83-4.51); Lymphocyte % 12.2 % (19-41); Mean Corp Hgb Conc 35.3 g/dL (32-36); Mean Corpuscular Hgb 31.6 pg (27.0-32.0); Mean Corpuscular Volume 89.4 fL (80-94); Mean Platelet Vol. 9.3 fl (6.2-12.0); Monocyte# 1.42 X10^3/uL; Monocyte% 7.7 % (0-10); NRBC Flagged by Analyzer 0 % (0-5); Neutrophil # 14.33 X10^3/uL (2.7-7.7); Neutrophil % 78.2 % (47-70); Platelet Count 385 K/mm3 (150-450); RBC Distribution Width CV 12.3 % (11.6-14.6); RBC Distribution Width SD 40.4 fl (35.1-43.9); Red Blood Count 4.72 M/mm3 (4.6-6.2); White Blood Count 18.3 K/mm3 (4.4-11.0)
[2024-09-13 13:04] LABS: Anion Gap 5 (5-15); BUN 31 mg/dL (7-18); BUN/Creat Ratio 20.5 RATIO (10-20); Calcium,Total 9.5 mg/dL (8.5-10.1); Chloride 104 mmol/L (98-107); Creatinine, Serum 1.51 mg/dL (0.70-1.30); EST Glomerular Filtration Rate 49 mL/min (>60); Est Glom Filt Rate - Afr Amer 59 mL/min (>60); Estimated Creatinine Clearance 38.47 ml/min; Glucose 132 mg/dL (74-106); Potassium 4.4 mmol/L (3.5-5.1); Sodium Level 135 mmol/L (136-145); Troponin-I HS 4 pg/mL (3.0-78.0)
[2024-09-13] MEDS: 0.9% Normal Saline (1000mL) 1,000 ML 999 ML IV (13:13)
[2024-09-13] MEDS: Ceftriaxone 2 GM in 0.9% Normal Saline (50mL MB+) 50 ML IV (13:42)
[2024-09-13] MEDS: Azithromycin 500 MG in 0.9% Normal Saline (250mL Bag) 250 ML 255 MG IV (13:42)
[2024-09-13 13:47] LABS: Lactic Acid 1.5 mmol/L (0.4-1.9)
[2024-09-13 14:20] LABS: Procalcitonin 0.12 ng/mL (0.00-0.09)
--- NOTE | 2024-09-13 14:32 | PCM.HP.STD ---
HPI - General General Date of Admission: 09/13/24 Date of Service: 09/13/24 Chief Complaint: Cough, dyspnea, hypoxia, wheezing. HPI Narrative The patient is a 74 y/o M w/ PMHx: Former EtOH abuse, Gout, Hx TBI, Hx AV angioma status post craniotomy in 1996, Tobacco use, COPD who presents to the [facility] ED on 09/13/24 with history of persistent worsening dyspnea, worsened with exertion ongoing for 2 weeks with sporadic pleuritic chest discomfort with productive cough that is been worsening with recent urgent care evaluation noted to be hypoxic there and referred to the ED for evaluation noting that he has not been to a primary care physician in a lengthy amount of time and does not use an inhaler or nebulizer prompting evaluation in the ED to be cautious. Patient does report that he has had productive cough of green sputum with intermittent fevers and chills which seem to broken he notes. He does note lack of appetite and believes he is lost approximately 7 to 10 pounds over the last 2 weeks. Workup in the ED included T97.9, heart rate 109, BP 116/94, respiratory rate 22, 92% on 2 L nasal cannula with most recent repeat vital signs T98.7, heart rate 80, BP 118/95, respiratory rate 18, 92% on 2 L nasal cannula, CBC with WBC 18.3, 114.9, platelet 385 with left shift, BMP with sodium 135, BUN/could not 21/1.51, GFR 49, glucose 132, lactic acid 1.5, troponin 4, procalcitonin 0.12, chest x-ray with no acute cardiopulmonary findings, blood culture x 2 pending per ED, rapid SARS COVID/influenza/RSV PCR negative. In the ED patient ministered 1 L normal saline, Rocephin 2 g IV x 1, azithromycin 5 mg IV x 1, DuoNeb therapy. [facility] Medical History History of alcohol abuse COPD (chronic obstructive pulmonary disease) TIA (transient ischemic attack) Angioma Tobacco use Gout History of hepatitis TBI (traumatic brain injury) Arthritis Home Medications ?Medication ?Instructions ?Recorded ?Last Taken ?Type NK 09/13/24 Unknown History Allergy/AdvReac Type Severity Reaction Status Date / Time codeine Allergy Hives Verified 09/13/24 12:17 hydrocodone bitartrate (From Allergy Hives Verified 09/13/24 12:17 Vicodin) Family History Mother No problems noted. Father No problems noted. Family History other other (Patient notes that his mother and father lived into their 90s and were relatively healthy with no history of diabetes, heart disease, cancer.) Surgical History S/P craniotomy H/O shoulder surgery History of surgery on wrist Social History household members: none Smoking Status: Current every day smoker tobacco type: cigarettes Smoking packs per day: 1 Smoking cigarettes per day: 20.0 alcohol intake: former details: Sober 42-43 years. substance use type: does not use ROS ROS Narrative Admission Review of Systems: CONSTITUTIONAL: No weight loss, + intermittent fever, chills, weakness or fatigue. HEENT: Eyes: No visual loss, blurred vision, double vision or yellow sclerae. Ears, Nose, Throat: No hearing loss, sneezing, congestion, runny nose or sore throat. SKIN: No rash or itching, lesions, wounds. CARDIOVASCULAR: + Occasional pleuritic chest discomfort with coughing. No palpitations, edema, orthopnea, syncopal events. RESPIRATORY: + Dyspnea worse with exertion with productive cough, wheezing. No hemoptysis. GASTROINTESTINAL: + Poor appetite/anorexia. No nausea, vomiting or diarrhea, abdominal pain, melena, BRBPR. GENITOURINARY: No dysuria, frequency, urgency or retention. NEUROLOGICAL: No headache, dizziness, syncope, paralysis, ataxia, numbness or tingling in the extremities, focal weakness, change in bowel or bladder control, seizure. MUSCULOSKELETAL: + muscle, back pain, joint pain or stiffness. HEMATOLOGIC: No anemia. + Easy bleeding/bruising. LYMPHATICS: No enlarged nodes. No history of splenectomy. PSYCHIATRIC: No history of depression or anxiety. ENDOCRINOLOGIC: No reports of sweating, cold or heat intolerance. No polyuria or polydipsia. ALLERGIES: + History of hives. Vital Signs Vital Signs Vital Signs: 09/13/24 12:12 09/13/24 12:45 09/13/24 12:46 Temperature 97.9 F Temperature Source Oral Pulse Rate 109 H Respiratory Rate 22 H Respiratory Effort Short of Breath Respiratory Depth Normal Respiratory Pattern Tachypnea Blood Pressure 116/94 H Blood Pressure Mean 101 Pulse Ox 92 92 Oxygen Delivery Method Nasal Cannula Nasal Cannula Nasal Cannula Oxygen Flow Rate (L/min) 2 2 2 09/13/24 12:46 09/13/24 13:00 09/13/24 14:00 Temperature 97.9 F 98.7 F Temperature Source Oral Oral Pulse Rate 88 98 80 Respiratory Rate 19 H 20 H 18 Respiratory Effort Respiratory Depth Respiratory Pattern Normal Blood Pressure 124/101 H 118/95 H Blood Pressure Mean 109 102 Pulse Ox 92 92 Oxygen Delivery Method Nasal Cannula Nasal Cannula Oxygen Flow Rate (L/min) 2 2 Weight Weight: 152 lb Body Mass Index (BMI) 25.2 Physical Exam Narrative Physical Examination: General: Awake, alert, oriented x 3 and cooperative, seated upright in the ED bed, fatigued, occasional coughing, no distress noted. Skin: Normal color, normal turgor, no icterus, no cyanosis except occasional stage ecchymoses, abrasion. HEENT: AT/NC, EOMI, PERRLA, moderately dry MM, no carotid bruits or JVD noted. Lungs: Significantly diminished, greater bases, appropriate effort, noted end expiratory wheezing, no rales or rhonchi. Heart: Regular rate and rhythm; no gallop, rub audible. Abdomen: Soft, NTTP, ND, mildly hyperactive BS, no appreciated HSM. Extremities: No cyanosis, clubbing, or edema. Neurological: Patient awake, alert, oriented as noted, cognitive function intact; pupils equally reactive to light and accommodation, cranial nerves grossly normal, moving all 4 extremities, no focal deficits, strength mildly to moderately globally decreased. Psychiatric: Affect appears fatigued, no acute evidence of depressive or anxiety feelings. Results Lab / Micro Data 09/13/24 12:39 09/13/24 12:39 Labs: Laboratory Results - last 24 hr 09/13/24 12:39: WBC 18.3 H, RBC 4.72, Hgb 14.9, Hct 42.2, MCV 89.4, MCH 31.6, MCHC 35.3, RDW Std Deviation 40.4, RDW Coeff of Tova 12.3, Plt Count 385, MPV 9.3, Immature Gran % (Auto) 0.300, Neut % (Auto) 78.2 H, Lymph % (Auto) 12.2 L, Ocean % (Auto) 7.7, Eos % (Auto) 0.9, Baso % (Auto) 0.7, Absolute Neuts (auto) 14.3 H, Absolute Lymphs (auto) 2.24, Nucleated RBC % 0, Sodium 135 L, Potassium 4.4, Chloride 104, Carbon Dioxide 26.0, Anion Gap 5, BUN 31 H, Creatinine 1.51 H, Estim Creat Clear Calc 38.47, Est GFR (MDRD) Af Amer 59 L, Est GFR (MDRD) Non-Af 49 L, BUN/Creatinine Ratio 20.5 H, Glucose 132 H, Calcium 9.5, Troponin I High Sens 4 09/13/24 13:15: Lactic Acid 1.5 09/13/24 13:48: Procalcitonin 0.12 H Micro: Microbiology 09/13/24 13:15 Mucosa - Nose SARS-CoV-2, Influenza & RSV (PCR) - Final Imaging Radiology Impression Chest X-Ray 09/13/24 12:45 IMPRESSION: 1. No acute findings in the chest. 2. No significant interval change. Electronically Signed: Luis Canchola MD at 13:27 EST , Assessment & Plan Assessment/Plan (1) Chronic obstructive pulmonary disease with (acute) exacerbation: (2) Hypoxia: PLAN: Plan The patient is a 74 y/o M w/ PMHx: Former EtOH abuse, Gout, Hx TBI, Hx AV angioma status post craniotomy in 1996, Tobacco use, COPD who presents to the [facility] ED on 09/13/24 with history of persistent worsening dyspnea, worsened with exertion ongoing for 2 weeks with sporadic pleuritic chest discomfort with productive cough that is been worsening with recent urgent care evaluation noted to be hypoxic there and referred to the ED for evaluation noting that he has not been to a primary care physician in a lengthy amount of time and does not use an inhaler or nebulizer prompting evaluation in the ED to be cautious. Patient does report that he has had productive cough of green sputum with intermittent fevers and chills which seem to broken he notes. #1. Acute Hypoxia secondary to Acute on Chronic COPD exacerbation with some initial ED concern per ED physician for right lower lobe possible infiltrate however appears similar to previous chest x-rays thus uncertain: Will admit to [facility], maintain on oxygen with wean as tolerated to room air, continue ATC duonebs, PRN albuterol, IV methylprednisolone, will maintain on oral cefdinir per COPD order set, HOB, IS parameters, will obtain sputum Cx, respiratory viral panel, procalcitonin, if procalcitonin significantly elevated certainly could consider IV antibiotic transition, will continue judicious hydration and will plan repeat chest x-ray a.m. to assure no marked infiltrates more evident following hydration #2. Tobacco Abuse: Encouraged cessation, inpatient consultation per RT, NR if desired. #3. History AV angioma complicated by TBI: Status post craniotomy 1996, encourage continued outpatient follow-up with neurology/neurosurgery as previously arranged if ongoing. #4. Former alcohol abuse: Encourage continued sobriety. #5. Gout: Per current list does not appear to be on regimen, no active current complaints, follow-up with PCP as previously arranged. #6. History TIA: Admission remotely in 2019, not currently taking any aspirin and not on a statin with no hypertensive history, patient preference to defer any current additions. #7. DVT prophylaxis: Lovenox. #8. CODE status: Patient HCPOA and living will are not in place however following lengthy discussion patient notes his sister Shwetha would be his medical decision-maker if it was absolutely necessary. Initially with discussions he declined a list anybody but eventually listed his 1 specific sister is noted. Discussed CODE status at length including difference between FULL code, DNR-CCA and DNR-CC status. Following discussions about the differences in these status, requested Full Code status. Advanced Care Planning Face to Face Time: 16 minutes. Charges/Coding Visit Charges Inpatient E&M: 62013 Init Hosp L3 Procedures Hospitalists Procedures: 15592 Advncd Care Plan 30 Min
[2024-09-13] MEDS: 0.9% Saline Lock 10 ML Syringe IV ×2 (16:00→21:32)
[2024-09-13] MEDS: 0.9% Normal Saline (1000mL) 1,000 ML 100 ML IV (16:00)
[2024-09-13] MEDS: Cefdinir 300 MG Capsule PO (21:32)
[2024-09-14] VITALS (10 sets, daily range): BP systolic 120–128; BP diastolic 76–93; PULSE 61–87; RESP 15–22; TEMP 36.4–36.8; O2SAT 91–96; BMI 25.2
[2024-09-14] MEDS: 0.9% Saline Lock 10 ML Syringe IV ×3 (02:47→14:46)
[2024-09-14 05:51] LABS: Absolute Lymphocyte Count 1.71 X10^3/uL (0.83-4.51); Absolute Neutrophil Count 11.4 X10^3/uL (2.0-7.7); Basophil# 0.03 X10^3/uL; Basophil% 0.2 % (0-1); Hematocrit 38.9 % (40-54); Hemoglobin 13.8 g/dL (13.0-16.5); Lymphocyte # 1.71 X10^3/ul (0.83-4.51); Lymphocyte % 12.9 % (19-41); Mean Corp Hgb Conc 35.5 g/dL (32-36); Mean Corpuscular Volume 93.1 fL (80-94); Mean Platelet Vol. 9.6 fl (6.2-12.0); Monocyte# 0.15 X10^3/uL; Monocyte% 1.1 % (0-10); NRBC Flagged by Analyzer 0 % (0-5); Neutrophil # 11.35 X10^3/uL (2.7-7.7); Neutrophil % 85.3 % (47-70); Platelet Count 409 K/mm3 (150-450); RBC Distribution Width CV 12.3 % (11.6-14.6); RBC Distribution Width SD 41.2 fl (35.1-43.9); Red Blood Count 4.18 M/mm3 (4.6-6.2); White Blood Count 13.3 K/mm3 (4.4-11.0)
[2024-09-14 06:24] LABS: ALB/GLOB Ratio 0.7 RATIO (0.9-2.4); AST(SGOT) 23 U/L (15-37); Alanine Aminotransfer ALT/SGPT 42 U/L (16-61); Albumin, Serum 3.1 g/dL (3.2-5.0); Alkaline Phosphatase 86 U/L (45-117); Anion Gap 8 (5-15); BUN 30 mg/dL (7-18); BUN/Creat Ratio 25.4 RATIO (10-20); Calcium,Total 9.3 mg/dL (8.5-10.1); Chloride 106 mmol/L (98-107); Creatinine, Serum 1.18 mg/dL (0.70-1.30); EST Glomerular Filtration Rate 65 mL/min (>60); Est Glom Filt Rate - Afr Amer 78 mL/min (>60); Estimated Creatinine Clearance 49.22 ml/min; Globulin 4.6 g/dL (2.2-4.2); Glucose 194 mg/dL (74-106); Potassium 3.8 mmol/L (3.5-5.1); Protein, Total 7.7 g/dL (6.4-8.2); Sodium Level 135 mmol/L (136-145)
--- NOTE | 2024-09-14 06:27 | RAD_ITS ---
HISTORY: ? PNA. TECHNIQUE: XR Chest 2 Views. COMPARISON: Prior day. FINDINGS: LINES/TUBES: None. Fractured cortical plate in the right clavicle again seen. CARDIOMEDIASTINAL BORDERS: Stable. LUNGS: Mild linear bibasilar opacities from atelectasis or inflammation. Chronic hyperinflation. PLEURA: No pleural effusion or pneumothorax. RAD/Chest PA and Lateral IMPRESSION: Mild bibasilar atelectasis or inflammation. Electronically Signed: Darcy Jones MD at 13:01 EST ,
[2024-09-14] MEDS: Ipratropium/Albuterol Sulfate 3 ML AMPUL.NEB INHALATION ×4 (07:26→19:49)
--- NOTE | 2024-09-14 07:29 | PCM.PN.HOSP ---
Reason for Visit Reason for Visit: Diagnoses Chronic obstructive pulmonary disease with (acute) exacerbation (09/13/24) Hypoxemia (09/13/24) Subjective Subjective Still short of breath, feeling slightly better, still productive cough Objective Data Objective Data Vital Signs: Vital Signs Temp Pulse Resp BP Pulse Ox O2 Del Method O2 Flow Rate 98.2 F 72 20 H 128/93 H 96 Nasal Cannula 2 09/14/24 02:18 09/14/24 07:26 09/14/24 07:26 09/14/24 02:18 09/14/24 07:26 09/14/24 07:26 09/14/24 07:26 Oxygen Flow Rate (L/min) 2 Oxygen Delivery Method Nasal Cannula Weight: 68.7 kg Body Mass Index (BMI) 25.2 Intake & Output: Intake and Output for Last 24 Hours 09/12/24 09/13/24 09/14/24 23:59 23:59 23:59 Intake Total 1300 / 1300 Balance 1300 / 1300 Lab / Micro Data 09/14/24 04:12 09/14/24 04:12 Labs: Laboratory Results - last 24 hr 09/13/24 12:39: WBC 18.3 H, RBC 4.72, Hgb 14.9, Hct 42.2, MCV 89.4, MCH 31.6, MCHC 35.3, RDW Std Deviation 40.4, RDW Coeff of Tova 12.3, Plt Count 385, MPV 9.3, Immature Gran % (Auto) 0.300, Neut % (Auto) 78.2 H, Lymph % (Auto) 12.2 L, [place] % (Auto) 7.7, Eos % (Auto) 0.9, Baso % (Auto) 0.7, Absolute Neuts (auto) 14.3 H, Absolute Lymphs (auto) 2.24, Nucleated RBC % 0, Sodium 135 L, Potassium 4.4, Chloride 104, Carbon Dioxide 26.0, Anion Gap 5, BUN 31 H, Creatinine 1.51 H, Estim Creat Clear Calc 38.47, Est GFR (MDRD) Af Amer 59 L, Est GFR (MDRD) Non-Af 49 L, BUN/Creatinine Ratio 20.5 H, Glucose 132 H, Calcium 9.5, Troponin I High Sens 4 09/13/24 13:15: Lactic Acid 1.5 09/13/24 13:48: Procalcitonin 0.12 H 09/14/24 04:12: WBC 13.3 H, RBC 4.18 L, Hgb 13.8, Hct 38.9 L, MCV 93.1, MCH 33.0 H, MCHC 35.5, RDW Std Deviation 41.2, RDW Coeff of Tova 12.3, Plt Count 409, MPV 9.6, Immature Gran % (Auto) 0.500, Neut % (Auto) 85.3 H, Lymph % (Auto) 12.9 L, [place] % (Auto) 1.1, Eos % (Auto) 0.0, Baso % (Auto) 0.2, Absolute Neuts (auto) 11.4 H, Absolute Lymphs (auto) 1.71, Nucleated RBC % 0, Sodium 135 L, Potassium 3.8, Chloride 106, Carbon Dioxide 22.0, Anion Gap 8, BUN 30 H, Creatinine 1.18, Estim Creat Clear Calc 49.22, Est GFR (MDRD) Af Amer 78, Est GFR (MDRD) Non-Af 65, BUN/Creatinine Ratio 25.4 H, Glucose 194 H, Calcium 9.3, Total Bilirubin 0.40, AST 23, ALT 42, Alkaline Phosphatase 86, Total Protein 7.7, Albumin 3.1 L, Globulin 4.6 H, Albumin/Globulin Ratio 0.7 L Micro: Microbiology 09/13/24 16:47 Mucosa - Nose Respiratory Panel (PCR) - Final 09/13/24 18:15 Urine, Clean Catch Legionella Antigen - Final 09/13/24 18:15 Urine, Clean Catch Streptococcus pneumoniae Antigen (M - Final 09/13/24 13:15 Mucosa - Nose SARS-CoV-2, Influenza & RSV (PCR) - Final Radiography Diagnostic Testing: Radiology Impression Chest X-Ray 09/13/24 12:45 IMPRESSION: 1. No acute findings in the chest. 2. No significant interval change. Electronically Signed: Luis Canchola MD at 13:27 EST , Physical Exam Narrative General: Alert, oriented, no apparent distress HEENT: Atraumatic, normocephalic Eyes: Anicteric, normal conjunctiva, extraocular movements grossly intact Neck: Supple Respiratory: Slight increased respiratory effort, diffuse wheezing Cardiovascular: Regular rate GI: Soft, nontender, nondistended Extremities: No edema Musculoskeletal: Moving all extremities Neuro: No overt focal neurological deficits Skin: No rashes appreciated Psych: Cooperative Assessment & Plan Assessment/Plan (1) Hypoxia: PLAN: Plan # Hypoxia suspect secondary to acute exacerbation of COPD -Admit to floor, continuous O2 monitoring -Chest x-ray: There is question in ED if patient had possible infiltrate, chest x-ray read out as no acute process and it does appear similar to previous so patient treated for COPD exacerbation given reported history of COPD despite not being on home inhalers -That being said patient has had productive cough and had elevated white blood cell count so unclear if there could be pneumonia component but he is improving on current management and cefdinir will continue this regimen -Repeat chest x-ray this a.m. COVID negative, respiratory panel negative, sputum culture pending -O2 in place, wean as tolerated -IV methylprednisone -Scheduled DuoNebs -Albuterol prn -Antibiotics: Cefdinir -Incentive spirometer -Mucinex #Tobacco use -Advise cessation -Nicotine replacement available if desired #DVT ppx: Lovenox subcu Demetra Payne MD Charges/Coding Visit Charges Inpatient E&M: 19559 Subs Hosp L1
[2024-09-14] MEDS: Cefdinir 300 MG Capsule PO ×2 (08:05→20:58)
[2024-09-14] MEDS: guaiFENesin 1,200 MG Tablet 1200 MG PO ×2 (08:05→20:57)
[2024-09-15] VITALS (10 sets, daily range): BP systolic 103–139; BP diastolic 63–82; PULSE 65–94; RESP 17–20; TEMP 36.4–36.8; O2SAT 92–95; BMI 26.7
[2024-09-15] MEDS: Ondansetron 4 MG/2 ML Vial IV (02:58)
[2024-09-15] MEDS: 0.9% Saline Lock 10 ML Syringe IV ×5 (02:58→20:56)
[2024-09-15 06:28] LABS: Absolute Lymphocyte Count 1.59 X10^3/uL (0.83-4.51); Absolute Neutrophil Count 27.2 X10^3/uL (2.0-7.7); Basophil# 0.05 X10^3/uL; Basophil% 0.2 % (0-1); Eosinophil# 0.01 X10^3/uL; Hematocrit 34.4 % (40-54); Hemoglobin 12.2 g/dL (13.0-16.5); Lymphocyte # 1.59 X10^3/ul (0.83-4.51); Lymphocyte % 5.3 % (19-41); Mean Corp Hgb Conc 35.5 g/dL (32-36); Mean Corpuscular Hgb 33.1 pg (27.0-32.0); Mean Corpuscular Volume 93.2 fL (80-94); Mean Platelet Vol. 9.7 fl (6.2-12.0); Monocyte% 2.7 % (0-10); NRBC Flagged by Analyzer 0 % (0-5); Neutrophil # 27.22 X10^3/uL (2.7-7.7); Neutrophil % 90.9 % (47-70); POSITIVE DIFFERENTIAL YES; Platelet Count 364 K/mm3 (150-450); RBC Distribution Width CV 12.6 % (11.6-14.6); RBC Distribution Width SD 41.5 fl (35.1-43.9); Red Blood Count 3.69 M/mm3 (4.6-6.2)
[2024-09-15 06:45] LABS: Differential Indicated SCAN CRITERIA MET
[2024-09-15] MEDS: Ipratropium/Albuterol Sulfate 3 ML AMPUL.NEB INHALATION ×4 (06:49→19:49)
[2024-09-15 06:56] LABS: Anion Gap 4 (5-15); BUN 34 mg/dL (7-18); BUN/Creat Ratio 32.4 RATIO (10-20); Calcium,Total 9.4 mg/dL (8.5-10.1); Chloride 112 mmol/L (98-107); Creatinine, Serum 1.05 mg/dL (0.70-1.30); EST Glomerular Filtration Rate 74 mL/min (>60); Est Glom Filt Rate - Afr Amer 89 mL/min (>60); Estimated Creatinine Clearance 55.32 ml/min; Glucose 148 mg/dL (74-106); Potassium 4.6 mmol/L (3.5-5.1); Sodium Level 139 mmol/L (136-145)
[2024-09-15 07:21] LABS: Toxic Granulation 1+
[2024-09-15] MEDS: Ceftriaxone 1 GM/50 ML BAG IV (08:17)
[2024-09-15] MEDS: Enoxaparin 40 MG/0.4 ML Syringe SC (08:18)
[2024-09-15] MEDS: guaiFENesin 1,200 MG Tablet 1200 MG PO ×2 (08:23→20:56)
--- NOTE | 2024-09-15 09:11 | PN.HOSP_ITS ---
Reason for Visit Reason for Visit: Diagnoses Chronic obstructive pulmonary disease with (acute) exacerbation (09/13/24) Hypoxemia (09/13/24) Subjective Subjective Patient still with productive cough and shortness of breath, was a little bit nauseous earlier today Objective Data Objective Data Vital Signs: Vital Signs Temp Pulse Resp BP Pulse Ox O2 Del Method O2 Flow Rate 98.3 F 87 18 103/63 93 Nasal Cannula 2 09/15/24 08:02 09/15/24 08:02 09/15/24 08:02 09/15/24 08:02 09/15/24 08:02 09/15/24 08:02 09/15/24 08:02 Oxygen Flow Rate (L/min) 2 Oxygen Delivery Method Nasal Cannula Weight: 72.9 kg Body Mass Index (BMI) 26.7 Intake & Output: Intake and Output for Last 24 Hours 09/13/24 09/14/24 09/15/24 23:59 23:59 23:59 Intake Total 2250 / 2250 500 / 500 Balance 2250 / 2250 500 / 500 Medical Nutrition Assessment Dietitian: Malnutrition Criteria Met Start: 09/14/24 12:32 Freq: Status: Active Protocol: Document 09/14/24 14:04 SB (Rec: 09/14/24 14:04 SB [id number]) Nutrition Malnutrition Evidence of Malnutrition Exists Yes Malnutrition (severe): Acute Illness/Injury Evidenced By Suboptimal Energy Intake ( Severe),Weight Loss (Severe) Clinical Problem Acute Disease or Injury Related Malnutrition Etiology severe related to inadequate oral intake and increased energy expenditure d/t COPD Signs/Symptoms as evidenced by PO meeting <50 % of estimated nutrition needs x 2 weeks and 7% unintentional weight loss x 2 weeks. Status Active Problem Recommendation Dietitian Recommendations/Changes Adjust to liberal regular diet d/t signs and symptoms of malnutrition. Will order 120ml ensure plus high protein TID with meals, prefers vanilla. Will monitor weight trends. Reviewed and approved by Oxana Kim MS, RDN, LD. Lab / Micro Data 09/15/24 05:43 09/15/24 05:43 Labs: Laboratory Results - last 24 hr 09/15/24 05:43: WBC 30.0 H*, RBC 3.69 L, Hgb 12.2 L, Hct 34.4 L, MCV 93.2, MCH 33.1 H, MCHC 35.5, RDW Std Deviation 41.5, RDW Coeff of Tova 12.6, Plt Count 364, MPV 9.7, Immature Gran % (Auto) 0.900, Neut % (Auto) 90.9 H, Lymph % (Auto) 5.3 L, [place] % (Auto) 2.7, Eos % (Auto) 0.0, Baso % (Auto) 0.2, Absolute Neuts (auto) 27.2 H, Absolute Lymphs (auto) 1.59, Nucleated RBC % 0, Diff Path Review January, Toxic Granulation 1+, Sodium 139, Potassium 4.6, Chloride 112 H, Carbon Dioxide 23.0, Anion Gap 4 L, BUN 34 H, Creatinine 1.05, Estim Creat Clear Calc 55.32, Est GFR (MDRD) Af Amer 89, Est GFR (MDRD) Non-Af 74, BUN/Creatinine Ratio 32.4 H, Glucose 148 H, Calcium 9.4 Micro: Microbiology 09/13/24 16:47 Mucosa - Nose Respiratory Panel (PCR) - Final 09/13/24 18:15 Urine, Clean Catch Legionella Antigen - Final 09/13/24 18:15 Urine, Clean Catch Streptococcus pneumoniae Antigen (M - Final 09/13/24 13:15 Mucosa - Nose SARS-CoV-2, Influenza & RSV (PCR) - Final Radiography Diagnostic Testing: Radiology Impression Chest X-Ray 09/14/24 06:27 IMPRESSION: Mild bibasilar atelectasis or inflammation. Electronically Signed: Darcy Jones MD at 13:01 EST , Physical Exam Narrative General: Alert, oriented, no apparent distress HEENT: Atraumatic, normocephalic Eyes: Anicteric, normal conjunctiva, extraocular movements grossly intact Neck: Supple Respiratory: Slight increased respiratory effort, wheezing improving but does seem to have some crackles at right lung base Cardiovascular: Regular rate GI: Soft, nontender, nondistended Extremities: No edema Musculoskeletal: Moving all extremities Neuro: No overt focal neurological deficits Skin: No rashes appreciated Psych: Cooperative Assessment & Plan Assessment/Plan (1) Hypoxia: PLAN: Plan # Hypoxia suspect secondary to acute exacerbation of COPD with component of community-acquired pneumonia -Admit to floor, continuous O2 monitoring -Chest x-ray: There is question in ED if patient had possible infiltrate, chest x-ray read out as no acute process and it does appear similar to previous so patient treated for COPD exacerbation given reported history of COPD despite not being on home inhalers -That being said patient has had productive cough and had elevated white blood cell count so unclear if there could be pneumonia component but he is improving on current management and cefdinir will continue this regimen -Repeat chest x-ray this a.m. COVID negative, respiratory panel negative, sputum culture pending -O2 in place, wean as tolerated -IV methylprednisone -Scheduled DuoNebs -Albuterol prn -Antibiotics: Cefdinir -Incentive spirometer -Mucinex -09/15: Patient's white blood cell count further increased, suspect in part due to steroids but it is 30 which is particularly elevated and given patient still on oxygen still is productive cough and is not significantly improved we will broaden to CAP coverage, continue steroids and breathing treatments, continue Mucinex. Sputum culture pending Chronic medical problems: #Tobacco use -Advise cessation -Nicotine replacement available if desired #DVT ppx: Lovenox subcu Demetra Payne MD Charges/Coding Visit Charges Inpatient E&M: 43496 Subs Hosp L1
[2024-09-15] MEDS: Azithromycin 500 MG in 0.9% Normal Saline (250mL Bag) 250 ML 255 MG IV (09:48)
--- NOTE | 2024-09-15 10:52 | CASEMGMT ---
MARY GLYNN Assessment: Face to Face with pt for initial transition planning/care coordination assessment. MARY GLYNN introduced self and role at [facility], pt voices understanding and consents to assessment. Pt is A&O x4 and answers all questions appropriately at this time. Pt lying in bed in no distress. Care providers, pharmacy, and demographics verified/updated. Strata: 2 Admitting Dx: Hypoxia, COPD Exacerbation, PNA PCP: Lara Alfred, does not know what doctor. Specialists: Denies Preferred Pharmacy: [facility] Insurance: [employer] [facility] Prescription Benefit: yes LNOK: Sisters, Shwetha and Olga Living Arrangements: Pt lives with sister Shwetha. Became homeless on 2023. Sister went and picked him up off the street. Pt states he has been staying with her but wanting to look for somewhere more permeant. Pt states does not have HCPOA paperwork but would like to make Shwetha his POA. MARY GLYNN informed SW of this. MARY GLYNN called sister Shwetha and verified information. Shwetha is currently on her way to [place] for a couple weeks but states brother is able to go back to her home once DCd from hospital. Their other sister Olga can likely provide transportation, or Pt has a friend that can pick him up. ADLs: Pt I at baseline. Transportation: Pt walks or has family/friends help with transportation. DME: MARY Mcgovern CM discussed possible O2 Needs at DC, provided verbal list of local O2 providers Pt chose [facility] if needed at time of DC. HHC/SNF: Denies Hx of. MARY GLYNN spoke with sisterShwetha, they would like information regarding finding a more permanent living situation for Pt. MARY GLYNN notified MARY GLYNN and SW on floor of social dynamics. SW\CM to follow. Advised pt to ask CM if any further question/concerns/needs arise, voices understanding. Pt Goal: TBD Plan: TBD. Follow for O2 needs. Charles HERNANDEZ CM
[2024-09-16] VITALS (11 sets, daily range): BP systolic 119–142; BP diastolic 81–97; PULSE 76–92; RESP 16–20; TEMP 36.4–36.6; O2SAT 88–95; BMI 27.6
[2024-09-16] MEDS: 0.9% Saline Lock 10 ML Syringe IV ×3 (02:43→21:47)
[2024-09-16] MEDS: Ondansetron 4 MG/2 ML Vial IV (02:43)
[2024-09-16 06:39] LABS: Absolute Lymphocyte Count 1.45 X10^3/uL (0.83-4.51); Absolute Neutrophil Count 22.9 X10^3/uL (2.0-7.7); Basophil# 0.04 X10^3/uL; Basophil% 0.2 % (0-1); Hematocrit 33.9 % (40-54); Hemoglobin 11.5 g/dL (13.0-16.5); Lymphocyte # 1.45 X10^3/ul (0.83-4.51); Lymphocyte % 5.7 % (19-41); Mean Corp Hgb Conc 33.9 g/dL (32-36); Mean Corpuscular Hgb 31.8 pg (27.0-32.0); Mean Corpuscular Volume 93.6 fL (80-94); Mean Platelet Vol. 9.7 fl (6.2-12.0); Monocyte# 0.63 X10^3/uL; Monocyte% 2.5 % (0-10); NRBC Flagged by Analyzer 0 % (0-5); Neutrophil # 22.89 X10^3/uL (2.7-7.7); Neutrophil % 90.2 % (47-70); POSITIVE DIFFERENTIAL YES; Platelet Count 357 K/mm3 (150-450); RBC Distribution Width SD 42.9 fl (35.1-43.9); Red Blood Count 3.62 M/mm3 (4.6-6.2); White Blood Count 25.4 K/mm3 (4.4-11.0)
[2024-09-16 06:58] LABS: Differential Indicated SCAN CRITERIA MET
[2024-09-16] MEDS: Ipratropium/Albuterol Sulfate 3 ML AMPUL.NEB INHALATION ×4 (07:21→19:47)
[2024-09-16 07:56] LABS: Anion Gap 4 (5-15); BUN 38 mg/dL (7-18); BUN/Creat Ratio 34.5 RATIO (10-20); Chloride 111 mmol/L (98-107); EST Glomerular Filtration Rate 70 mL/min (>60); Est Glom Filt Rate - Afr Amer 85 mL/min (>60); Estimated Creatinine Clearance 57.58 ml/min; Glucose 160 mg/dL (74-106); Potassium 4.9 mmol/L (3.5-5.1); Sodium Level 139 mmol/L (136-145)
[2024-09-16 08:02] LABS: Reactive Lymphocyte 1+
[2024-09-16 08:03] LABS: Platelet Estimate A (ADEQ)
[2024-09-16] MEDS: Enoxaparin 40 MG/0.4 ML Syringe SC (08:55)
[2024-09-16] MEDS: guaiFENesin 1,200 MG Tablet 1200 MG PO ×2 (08:56→21:47)
[2024-09-16] MEDS: Azithromycin 500 MG in 0.9% Normal Saline (250mL Bag) 250 ML 255 MG IV (09:05)
[2024-09-16] MEDS: Ceftriaxone 1 GM/50 ML BAG IV (10:19)
[2024-09-16 11:51] LABS: Pathologist Review Reviewed
--- NOTE | 2024-09-16 12:14 | CASEMGMT ---
Social Work- Pt had been identified as wanting to complete HCPOA. SW met with pt who reports that he does not want to complete paperwork. Pt reports that he just wanted his sisters added as contacts, reporting that he is the oldest, but they are in worse health. SW updated contacts in chart. 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 Pt reports no housing concerns, concerns with food, utilities, transportation, or safety. SW called pt sister Olga, who will be transporting pt home, for collaboration. Olga was unavailable; JAMAL left voicemail. SEAN Smith
--- NOTE | 2024-09-16 16:02 | PCM.PN.HOSP ---
Subjective Subjective Doing well, no issues overnight. Leukocytosis is improving Objective Data Objective Data Vital Signs: Vital Signs Temp Pulse Resp BP Pulse Ox O2 Del Method O2 Flow Rate 97.9 F 80 16 119/88 H 93 Room Air 3 09/16/24 15:17 09/16/24 15:33 09/16/24 15:33 09/16/24 15:17 09/16/24 15:17 09/16/24 15:17 09/16/24 08:38 Oxygen Flow Rate (L/min) 3 Oxygen Delivery Method Room Air Weight: 166 lb 3.657 oz Body Mass Index (BMI) 27.6 Intake & Output: Intake and Output for Last 24 Hours 09/15/24 09/16/24 09/17/24 03:59 03:59 03:59 Intake Total 1250 / 1250 1205 / 1205 1105 / 1105 Balance 1250 / 1250 1205 / 1205 1105 / 1105 Medical Nutrition Assessment Dietitian: Malnutrition Criteria Met Start: 09/14/24 12:32 Freq: Status: Active Protocol: Document 09/14/24 14:04 SB (Rec: 09/14/24 14:04 SB [id number]) Nutrition Malnutrition Evidence of Malnutrition Exists Yes Malnutrition (severe): Acute Illness/Injury Evidenced By Suboptimal Energy Intake ( Severe),Weight Loss (Severe) Clinical Problem Acute Disease or Injury Related Malnutrition Etiology severe related to inadequate oral intake and increased energy expenditure d/t COPD Signs/Symptoms as evidenced by PO meeting <50 % of estimated nutrition needs x 2 weeks and 7% unintentional weight loss x 2 weeks. Status Active Problem Recommendation Dietitian Recommendations/Changes Adjust to liberal regular diet d/t signs and symptoms of malnutrition. Will order 120ml ensure plus high protein TID with meals, prefers vanilla. Will monitor weight trends. Reviewed and approved by Oxana Kim, MS, RDN, LD. Lab / Micro Data 09/16/24 05:59 09/16/24 05:59 Labs: Laboratory Results - last 24 hr 09/15/24 05:43: Diff Path Review Reviewed 09/16/24 05:59: WBC 25.4 H, RBC 3.62 L, Hgb 11.5 L, Hct 33.9 L, MCV 93.6, MCH 31.8, MCHC 33.9, RDW Std Deviation 42.9, RDW Coeff of Tova 13.0, Plt Count 357, MPV 9.7, Immature Gran % (Auto) 1.400 H, Neut % (Auto) 90.2 H, Lymph % (Auto) 5.7 L, [place] % (Auto) 2.5, Eos % (Auto) 0.0, Baso % (Auto) 0.2, Absolute Neuts (auto) 22.9 H, Absolute Lymphs (auto) 1.45, Nucleated RBC % 0, Reactive Lymphocytes 1+, Platelet Estimate A, Sodium 139, Potassium 4.9, Chloride 111 H, Carbon Dioxide 24.0, Anion Gap 4 L, BUN 38 H, Creatinine 1.10, Estim Creat Clear Calc 57.58, Est GFR (MDRD) Af Amer 85, Est GFR (MDRD) Non-Af 70, BUN/Creatinine Ratio 34.5 H, Glucose 160 H, Calcium 9.0 Micro: Microbiology 09/13/24 16:20 Sputum, Expectorated/Coughed Gram Stain - Final 09/13/24 16:20 Sputum, Expectorated/Coughed Respiratory Culture - Final 09/13/24 13:48 Blood Culture (Wb) - Anticubital Left Blood Culture - Preliminary No growth in 48 hours. 09/13/24 13:15 Blood Culture (Wb) - Anticubital Left Blood Culture - Preliminary No growth in 48 hours. 09/13/24 16:47 Mucosa - Nose Respiratory Panel (PCR) - Final 09/13/24 18:15 Urine, Clean Catch Legionella Antigen - Final 09/13/24 18:15 Urine, Clean Catch Streptococcus pneumoniae Antigen (M - Final 09/13/24 13:15 Mucosa - Nose SARS-CoV-2, Influenza & RSV (PCR) - Final Physical Exam Narrative General: Alert, Oriented x3, Cooperative, No apparent distress HEENT: Atraumatic, PERRLA, EOMI, Normocephalic Oral: Moist Mucosa Neck: Supple, No JVD Lungs: Diminished, Normal air movement, No rhonchi, scattered wheeze, No rales Cardiovascular: Regular rate, Regular Rhythm, Normal S1, Normal S2, No murmurs Abdomen: Soft, Non Tender, Non-Distended, No Hepato-splenomegaly Extremities: No edema, Capillary Refill Less than 3 Seconds Skin: No rashes, No breakdown Musculoskeletal: No Tenderness to Palpation of Joints or Extremities Neurological: No focal neurological deficits, Motor Exam 5/5 strength throughout, Sensory exam intact to light touch and pain Psych/Mental Status: Normal Affect, Appropriate Assessment & Plan Assessment/Plan (1) Hypoxia: PLAN: Plan # Hypoxia suspect secondary to acute exacerbation of COPD with component of community-acquired pneumonia -Admit to floor, continuous O2 monitoring -Chest x-ray: There is question in ED if patient had possible infiltrate, chest x-ray read out as no acute process and it does appear similar to previous so patient treated for COPD exacerbation given reported history of COPD despite not being on home inhalers -That being said patient has had productive cough and had elevated white blood cell count so unclear if there could be pneumonia component but he is improving on current management and cefdinir will continue this regimen -Repeat chest x-ray this a.m. COVID negative, respiratory panel negative, sputum culture pending -O2 in place, wean as tolerated -IV methylprednisone -Scheduled DuoNebs -Albuterol prn -Antibiotics: Cefdinir -Incentive spirometer -Mucinex -09/15: Patient's white blood cell count further increased, suspect in part due to steroids but it is 30 which is particularly elevated and given patient still on oxygen still is productive cough and is not significantly improved we will broaden to CAP coverage, continue steroids and breathing treatments, continue Mucinex. Sputum culture pending 09/16/2024: All cultures are negative, he is also refusing to wear oxygen on discharge home. Today he was 93% on room air and 88% with ambulation needing 2 L of oxygen to get to 91%. He would like to stay 1 more day #Tobacco use -Advise cessation -Nicotine replacement available if desired DVT: Lovenox Charges/Coding Visit Charges Inpatient E&M: 08535 Subs Hosp L2
[2024-09-17] VITALS (9 sets, daily range): BP systolic 132–154; BP diastolic 85–92; PULSE 69–91; RESP 15–20; TEMP 36.4–36.6; O2SAT 91–94; BMI 27.9
[2024-09-17] MEDS: 0.9% Saline Lock 10 ML Syringe IV ×3 (05:04→14:21)
[2024-09-17 05:36] LABS: Absolute Lymphocyte Count 1.57 X10^3/uL (0.83-4.51); Absolute Neutrophil Count 17.7 X10^3/uL (2.0-7.7); Basophil# 0.03 X10^3/uL; Basophil% 0.1 % (0-1); Hematocrit 34.5 % (40-54); Hemoglobin 11.7 g/dL (13.0-16.5); Lymphocyte # 1.57 X10^3/ul (0.83-4.51); Lymphocyte % 7.7 % (19-41); Mean Corp Hgb Conc 33.9 g/dL (32-36); Mean Corpuscular Hgb 30.8 pg (27.0-32.0); Mean Corpuscular Volume 90.8 fL (80-94); Mean Platelet Vol. 9.4 fl (6.2-12.0); Monocyte# 0.64 X10^3/uL; Monocyte% 3.1 % (0-10); NRBC Flagged by Analyzer 0 % (0-5); Neutrophil # 17.71 X10^3/uL (2.7-7.7); Neutrophil % 87.1 % (47-70); Platelet Count 321 K/mm3 (150-450); RBC Distribution Width CV 12.8 % (11.6-14.6); RBC Distribution Width SD 42.6 fl (35.1-43.9); White Blood Count 20.4 K/mm3 (4.4-11.0)
[2024-09-17 06:15] LABS: Anion Gap 11 (5-15); BUN 19 mg/dL (7-18); BUN/Creat Ratio 17.6 RATIO (10-20); Calcium,Total 9.1 mg/dL (8.5-10.1); Chloride 107 mmol/L (98-107); Creatinine, Serum 1.08 mg/dL (0.70-1.30); EST Glomerular Filtration Rate 71 mL/min (>60); Est Glom Filt Rate - Afr Amer 86 mL/min (>60); Estimated Creatinine Clearance 58.89 ml/min; Glucose 111 mg/dL (74-106); Potassium 4.4 mmol/L (3.5-5.1); Sodium Level 137 mmol/L (136-145)
[2024-09-17] MEDS: Ipratropium/Albuterol Sulfate 3 ML AMPUL.NEB INHALATION ×4 (07:21→19:00)
[2024-09-17] MEDS: 0.9% Normal Saline (100mL Bag) 100 ML 15 ML IV (10:20)
[2024-09-17] MEDS: Ceftriaxone 1 GM/50 ML BAG IV (10:21)
[2024-09-17] MEDS: Enoxaparin 40 MG/0.4 ML Syringe SC (10:23)
[2024-09-17] MEDS: guaiFENesin 1,200 MG Tablet 1200 MG PO ×2 (10:23→20:53)
[2024-09-17] MEDS: Azithromycin 500 MG in 0.9% Normal Saline (250mL Bag) 250 ML 255 MG IV (11:10)
--- NOTE | 2024-09-17 12:50 | CASEMGMT ---
Social Work- SW received a call from pt sister Olga in regards to discharge planning. Olga reports that pt can only stay with sister Shwetha for a few days, as Shwetha's son is moving home. Olga reports that pt is aware of this and often is not honest or forthcoming with information. Olga reports that pt told her that POA papers had already been signed. Olga would like housing support information, Assisted living waiver program, and homeless fci list emailed to her for review by her and sister Shwetha. Olga reports that she does plan to transport pt at discharge. JAMAL emailed requested documents. JAMAL remains available to follow. SEAN Smith
--- NOTE | 2024-09-17 15:23 | PN.HOSP_ITS ---
Subjective Subjective Doing well, no issues overnight. White count is improving. He has stated that he will refuse to wear any oxygen at home Objective Data Objective Data Vital Signs: Vital Signs Temp Pulse Resp BP Pulse Ox O2 Del Method O2 Flow Rate 97.5 F L 69 18 140/87 H 92 Room Air 2 09/17/24 14:00 09/17/24 14:58 09/17/24 14:58 09/17/24 14:00 09/17/24 14:00 09/17/24 14:00 09/17/24 11:00 Oxygen Flow Rate (L/min) 2 Oxygen Delivery Method Room Air Weight: 167 lb 12.348 oz Body Mass Index (BMI) 27.9 Intake & Output: Intake and Output for Last 24 Hours 09/16/24 09/17/24 09/18/24 03:59 03:59 03:59 Intake Total 1205 / 1205 1805 / 1805 505 / 505 Balance 1205 / 1205 1805 / 1805 505 / 505 Medical Nutrition Assessment Dietitian: Malnutrition Criteria Met Start: 09/14/24 12:32 Freq: Status: Active Protocol: Document 09/14/24 14:04 SB (Rec: 09/14/24 14:04 SB [id number]) Nutrition Malnutrition Evidence of Malnutrition Exists Yes Malnutrition (severe): Acute Illness/Injury Evidenced By Suboptimal Energy Intake ( Severe),Weight Loss (Severe) Clinical Problem Acute Disease or Injury Related Malnutrition Etiology severe related to inadequate oral intake and increased energy expenditure d/t COPD Signs/Symptoms as evidenced by PO meeting <50 % of estimated nutrition needs x 2 weeks and 7% unintentional weight loss x 2 weeks. Status Active Problem Recommendation Dietitian Recommendations/Changes Adjust to liberal regular diet d/t signs and symptoms of malnutrition. Will order 120ml ensure plus high protein TID with meals, prefers vanilla. Will monitor weight trends. Reviewed and approved by Oxana Kim, , RDN, LD. Lab / Micro Data 09/17/24 05:09 09/17/24 05:09 Labs: Laboratory Results - last 24 hr 09/17/24 05:09: WBC 20.4 H, RBC 3.80 L, Hgb 11.7 L, Hct 34.5 L, MCV 90.8, MCH 30.8, MCHC 33.9, RDW Std Deviation 42.6, RDW Coeff of Tova 12.8, Plt Count 321, MPV 9.4, Immature Gran % (Auto) 2.000 H, Neut % (Auto) 87.1 H, Lymph % (Auto) 7.7 L, [place] % (Auto) 3.1, Eos % (Auto) 0.0, Baso % (Auto) 0.1, Absolute Neuts (auto) 17.7 H, Absolute Lymphs (auto) 1.57, Nucleated RBC % 0, Sodium 137, Potassium 4.4, Chloride 107, Carbon Dioxide 19.0 L, Anion Gap 11, BUN 19 H, Creatinine 1.08, Estim Creat Clear Calc 58.89, Est GFR (MDRD) Af Amer 86, Est GFR (MDRD) Non-Af 71, BUN/Creatinine Ratio 17.6, Glucose 111 H, Calcium 9.1 Micro: Microbiology 09/13/24 16:20 Sputum, Expectorated/Coughed Gram Stain - Final 09/13/24 16:20 Sputum, Expectorated/Coughed Respiratory Culture - Final 09/13/24 13:48 Blood Culture (Wb) - Anticubital Left Blood Culture - Preliminary No growth in 48 hours. 09/13/24 13:15 Blood Culture (Wb) - Anticubital Left Blood Culture - Preliminary No growth in 48 hours. 09/13/24 16:47 Mucosa - Nose Respiratory Panel (PCR) - Final 09/13/24 18:15 Urine, Clean Catch Legionella Antigen - Final 09/13/24 18:15 Urine, Clean Catch Streptococcus pneumoniae Antigen (M - Final 09/13/24 13:15 Mucosa - Nose SARS-CoV-2, Influenza & RSV (PCR) - Final Physical Exam Narrative General: Alert, Oriented x3, Cooperative, No apparent distress HEENT: Atraumatic, PERRLA, EOMI, Normocephalic Oral: Moist Mucosa Neck: Supple, No JVD Lungs: Diminished, Normal air movement, No rhonchi, scattered wheeze, No rales Cardiovascular: Regular rate, Regular Rhythm, Normal S1, Normal S2, No murmurs Abdomen: Soft, Non Tender, Non-Distended, No Hepato-splenomegaly Extremities: No edema, Capillary Refill Less than 3 Seconds Skin: No rashes, No breakdown Musculoskeletal: No Tenderness to Palpation of Joints or Extremities Neurological: No focal neurological deficits, Motor Exam 5/5 strength throughout, Sensory exam intact to light touch and pain Psych/Mental Status: Normal Affect, Appropriate Assessment & Plan Assessment/Plan (1) Hypoxia: PLAN: Plan # Hypoxia suspect secondary to acute exacerbation of COPD with component of community-acquired pneumonia -Admit to floor, continuous O2 monitoring -Chest x-ray: There is question in ED if patient had possible infiltrate, chest x-ray read out as no acute process and it does appear similar to previous so patient treated for COPD exacerbation given reported history of COPD despite not being on home inhalers -That being said patient has had productive cough and had elevated white blood cell count so unclear if there could be pneumonia component but he is improving on current management and cefdinir will continue this regimen -Repeat chest x-ray this a.m. COVID negative, respiratory panel negative, sputum culture pending -O2 in place, wean as tolerated -IV methylprednisone -Scheduled DuoNebs -Albuterol prn -Antibiotics: Cefdinir -Incentive spirometer -Mucinex -09/15: Patient's white blood cell count further increased, suspect in part due to steroids but it is 30 which is particularly elevated and given patient still on oxygen still is productive cough and is not significantly improved we will broaden to CAP coverage, continue steroids and breathing treatments, continue Mucinex. Sputum culture pending 09/16/2024: All cultures are negative, he is also refusing to wear oxygen on discharge home. Today he was 93% on room air and 88% with ambulation needing 2 L of oxygen to get to 91%. He would like to stay 1 more day 09/17/2024: Will transition Rocephin to p.o. cefdinir and azithromycin to p.o. azithromycin. Continue with oral steroids. Plan for discharge tomorrow as he did not want to be discharged to day despite his stability #Tobacco use -Advise cessation -Nicotine replacement available if desired DVT: Lovenox Charges/Coding Visit Charges Inpatient E&M: 52366 Subs Hosp L2
[2024-09-17] MEDS: guaiFENesin 10 ML UDC (200MG/10ML) 20 ML PO (20:56)
[2024-09-17] MEDS: MELATONIN 3 MG TABLET PO (20:56)
[2024-09-17] MEDS: Cefdinir 300 MG Capsule PO (20:57)
[2024-09-18] MEDS: Acetaminophen 325 MG Tablet 650 MG PO ×2 (01:13→06:53)
[2024-09-18 01:14] VITALS: BP 142/92; PULSE 67; RESP 16; TEMP 36.6; O2SAT 95
[2024-09-18 06:00] VITALS: BMI 27.1
[2024-09-18 06:42] VITALS: BP 122/81; PULSE 70; RESP 16; TEMP 36.6; O2SAT 98
[2024-09-18 06:44] VITALS: O2SAT 94
[2024-09-18] MEDS: guaiFENesin 10 ML UDC (200MG/10ML) 20 ML PO (06:52)
[2024-09-18 08:08] VITALS: O2SAT 94
[2024-09-18 08:57] VITALS: BP 151/99; PULSE 75; RESP 16; TEMP 36.3; O2SAT 95
[2024-09-18] MEDS: guaiFENesin 1,200 MG Tablet 1200 MG PO (08:59)
[2024-09-18] MEDS: Enoxaparin 40 MG/0.4 ML Syringe SC (08:59)
[2024-09-18] MEDS: Cefdinir 300 MG Capsule PO (08:59)
[2024-09-18] MEDS: Azithromycin 250 MG Tablet 500 MG PO (08:59)
[2024-09-18] MEDS: predniSONE 20 MG Tablet 40 MG PO (08:59)
[2024-09-18] MEDS: Ipratropium/Albuterol Sulfate 3 ML AMPUL.NEB INHALATION (10:11)
--- NOTE | 2024-09-18 10:16 | DCINST_ITS ---
Discharge Instructions Diet Discharge Diet: No restrictions DC O2, CPAP, BIPAP needs RN Home O2 Qualification: Home O2 Qualification: Is the patient on home oxygen No 09/16/24 07:41 Home O2 Qualification: AT REST 1- Pulse Ox at rest 93 09/16/24 07:41 Home O2 Qualification: WITH AMBULATION 1- Pulse Ox with ambulation 88 09/16/24 07:41 1- Oxygen Flow Rate with 0 09/16/24 07:41 ambulation 2- Pulse Ox with ambulation 91 09/16/24 07:41 2- Oxygen Flow Rate with 2 09/16/24 07:41 ambulation Home O2 Discharge instructions: No Dressing / Incision Discharge Activity: Return to Normal Activity Dressing / Incision Call your doctor if you observe: Fever of 101 or Higher, Shortness of breath, Dizziness, Fainting spells, Swelling in the ankles, Chest pain and Increased palpitations (irregular heartbeat) Follow Up Care Test Results: Test results from this visit will be discussed in further detail at your follow- up appointment, if applicable. Discharge Plan Admission Admit Date/Time: 09/13/24 14:45 Attending Provider: Cezar Mercado Primary Care Provider: Care Physician,Freda Primary Consulting Providers: Roberta York; Demetra Payne Discharge Orders/Prescriptions Prescriptions: New cefdinir 300 mg Capsule 300 mg PO Q12 5 Days Qty: 10 0RF albuterol sulfate 90 mcg/actuation HFA aerosol inhaler 1 puff inhalation Q6H PRN (Reason: shortness of breath or wheezing) Qty: 8.5 0RF prednisone 10 mg tablet 10 mg PO DAILY Qty: 32 0RF Rx Instructions: Take 4 tablets daily for 3 days then 3 tablets daily for 3 days then 2 tablets daily for 3 days then 1 tablet daily for 3 days then half tablet daily for 4 days Referrals / Follow Up: Care Physician,No Primary [Primary Care Provider] - Disposition Disposition (needs filled in before D/C Order can be placed): Home, Self Care
[2024-09-18 10:34] VITALS: PULSE 73; RESP 22
--- NOTE | 2024-09-18 11:47 | CASEMGMT ---
Addendum entered by Tiana Pike 09/18/24 12:56: TC to Olga to make aware of below information. She verbalizes understanding. Addendum entered by Tiana Pike 09/18/24 12:54: Spoke with pt nurse who states that pt was oxygen tested and did not require oxygen with lowest pox at 89%, she will enter. MARY GLYNN into pt room, pt states his friend will be transporting him from the hospital and he will end up at his sister's today or tomorrow. He is agreeable to MARY GLYNN calling Olga to let her know and that he will call her if he needs transportation. Original Note: MARY GLYNN into pt room, pt lying in bed with oxygen on. Pt states that he will not need home oxygen. He is aware that the nurse will test him to see. He states he will quit smoking. Pt states he has to find transportation home. Made aware that pt sister Olga was transporting him home. He stated that is news to me. Pt does not want MARY GLYNN to notify his sister that he is dc'ing. Notified SW who had the conversation with pt sister. Pt denies any homegoing needs.
--- NOTE | 2024-09-18 16:39 | PCM.DC.SUM ---
Providers Date of Admission: 09/13/24 Primary Care Physician: No Primary Care Phys Reason For Visit: HYPOXIA, COPD EXAC, ? PNA Diagnosis Discharge Diagnosis (1) Hypoxia: Status: Acute Code(s): R09.02 - Hypoxemia Medications at Discharge Home Medications albuterol sulfate 90 mcg/actuation aerosol inhaler 1 puff inhalation Q6H PRN shortness of breath or wheezing #8.5 grams 09/18/24 cefdinir 300 mg capsule 300 mg PO Q12 5 days #10 caps 09/18/24 prednisone 10 mg tablet 10 mg PO DAILY #32 tabs 09/18/24 Hospital Course Operations None Procedures None Summary of Care Provided Minutes Spent on Discharge: 36 Hospital Course: Per HPI: The patient is a 74 y/o M w/ PMHx: Former EtOH abuse, Gout, Hx TBI, Hx AV angioma status post craniotomy in 1996, Tobacco use, COPD who presents to the [facility] ED on 09/13/24 with history of persistent worsening dyspnea, worsened with exertion ongoing for 2 weeks with sporadic pleuritic chest discomfort with productive cough that is been worsening with recent urgent care evaluation noted to be hypoxic there and referred to the ED for evaluation noting that he has not been to a primary care physician in a lengthy amount of time and does not use an inhaler or nebulizer prompting evaluation in the ED to be cautious. Patient does report that he has had productive cough of green sputum with intermittent fevers and chills which seem to broken he notes. He does note lack of appetite and believes he is lost approximately 7 to 10 pounds over the last 2 weeks. Workup in the ED included T97.9, heart rate 109, BP 116/94, respiratory rate 22, 92% on 2 L nasal cannula with most recent repeat vital signs T98.7, heart rate 80, BP 118/95, respiratory rate 18, 92% on 2 L nasal cannula, CBC with WBC 18.3, 114.9, platelet 385 with left shift, BMP with sodium 135, BUN/could not 21/1.51, GFR 49, glucose 132, lactic acid 1.5, troponin 4, procalcitonin 0.12, chest x-ray with no acute cardiopulmonary findings, blood culture x 2 pending per ED, rapid SARS COVID/influenza/RSV PCR negative. In the ED patient ministered 1 L normal saline, Rocephin 2 g IV x 1, azithromycin 5 mg IV x 1, DuoNeb therapy. Hospital Course: # Hypoxia suspect secondary to acute exacerbation of COPD with component of community-acquired pneumonia -Admit to floor, continuous O2 monitoring -Chest x-ray: There is question in ED if patient had possible infiltrate, chest x-ray read out as no acute process and it does appear similar to previous so patient treated for COPD exacerbation given reported history of COPD despite not being on home inhalers -That being said patient has had productive cough and had elevated white blood cell count so unclear if there could be pneumonia component but he is improving on current management and cefdinir will continue this regimen -Repeat chest x-ray this a.m. COVID negative, respiratory panel negative, sputum culture pending -O2 in place, wean as tolerated -IV methylprednisone -Scheduled DuoNebs -Albuterol prn -Antibiotics: Cefdinir -Incentive spirometer -Mucinex -09/15: Patient's white blood cell count further increased, suspect in part due to steroids but it is 30 which is particularly elevated and given patient still on oxygen still is productive cough and is not significantly improved we will broaden to CAP coverage, continue steroids and breathing treatments, continue Mucinex. Sputum culture pending 09/16/2024: All cultures are negative, he is also refusing to wear oxygen on discharge home. Today he was 93% on room air and 88% with ambulation needing 2 L of oxygen to get to 91%. He would like to stay 1 more day 09/17/2024: Will transition Rocephin to p.o. cefdinir and azithromycin to p.o. azithromycin. Continue with oral steroids. Plan for discharge tomorrow as he did not want to be discharged to day despite his stability 09/18/2024: I discussed with him the plan for discharge she expressed understanding the risk and benefits of going home and would like to go home today. He understands the need to wear oxygen at home and he still would prefer not to I have had multiple discussions with him during his hospitalization and he remains adamant that he will not wear any oxygen at home. Will continue with the steroid taper as well as providing him with an albuterol inhaler and will continue with 5 more days of p.o. cefdinir to treat his pneumonia, he completed his course of azithromycin while here in the hospital #Tobacco use -Advise cessation -Nicotine replacement available if desired Physical Exam Narrative General: Alert, Oriented x3, Cooperative, No apparent distress HEENT: Atraumatic, PERRLA, EOMI, Normocephalic Oral: Moist Mucosa Neck: Supple, No JVD Lungs: Diminished, Normal air movement, No rhonchi, scattered wheeze, No rales Cardiovascular: Regular rate, Regular Rhythm, Normal S1, Normal S2, No murmurs Abdomen: Soft, Non Tender, Non-Distended, No Hepato-splenomegaly Extremities: No edema, Capillary Refill Less than 3 Seconds Skin: No rashes, No breakdown Musculoskeletal: No Tenderness to Palpation of Joints or Extremities Neurological: No focal neurological deficits, Motor Exam 5/5 strength throughout, Sensory exam intact to light touch and pain Psych/Mental Status: Normal Affect, Appropriate Weight / BMI Weight Weight: 163 lb 2.273 oz Body Mass Index (BMI) 27.1 ABG / Lab / Microbiology Data 09/17/24 05:09 09/17/24 05:09 Microbiology: Microbiology 09/13/24 13:48 Blood Culture (Wb) - Anticubital Left Blood Culture - Final No growth in 5 days. 09/13/24 13:15 Blood Culture (Wb) - Anticubital Left Blood Culture - Final No growth in 5 days. 09/13/24 16:20 Sputum, Expectorated/Coughed Gram Stain - Final 09/13/24 16:20 Sputum, Expectorated/Coughed Respiratory Culture - Final 09/13/24 16:47 Mucosa - Nose Respiratory Panel (PCR) - Final 09/13/24 18:15 Urine, Clean Catch Legionella Antigen - Final 09/13/24 18:15 Urine, Clean Catch Streptococcus pneumoniae Antigen (M - Final 09/13/24 13:15 Mucosa - Nose SARS-CoV-2, Influenza & RSV (PCR) - Final D/C Instructions Discharge Diet: No restrictions Call your doctor if you observe: Fever of 101 or Higher, Shortness of breath, Dizziness, Fainting spells, Swelling in the ankles, Chest pain and Increased palpitations (irregular heartbeat) DC O2, CPAP, BIPAP Needs RN Home O2 Qualification: Home O2 Qualification: Is the patient on home oxygen No 09/16/24 07:41 Home O2 Qualification: AT REST 1- Pulse Ox at rest 93 09/16/24 07:41 Home O2 Qualification: WITH AMBULATION 1- Pulse Ox with ambulation 88 09/16/24 07:41 1- Oxygen Flow Rate with 0 09/16/24 07:41 ambulation 2- Pulse Ox with ambulation 91 09/16/24 07:41 2- Oxygen Flow Rate with 2 09/16/24 07:41 ambulation Home O2 Discharge instructions: No Meaningful Use Info Meaningful Use Meaningful Use Diagnoses (Choose all that apply): None applicable Ischemic Stroke Statin Dosing Therapy Reference: STATIN DOSE THERAPY REFERENCE: * Patients > 75 years receive moderate or high dose statin therapy. * Patients 75 years or YOUNGER should receive HIGH intensity statin dose unless contraindicated. You will be required to document reason for non-treatment if statin daily dose does not meet guidelines. HIGH DOSE STATIN THERAPY DAILY Atorvastatin > than or = to 40 mg Rosuvastatin > than or = to 20 mg Amlodipine + Atorvastatin > than or = to 2.5/40 mg Ezetimibe + Simvastatin 10/80 mg Simvastatin 80mg Discharge Plan Admission Admit Date/Time: 09/13/24 14:45 Attending Provider: Cezar Mercado Primary Care Provider: Care Physician,No Primary Consulting Providers: Roberta York; Demetra Payne Discharge Orders/Prescriptions Prescriptions: New cefdinir 300 mg Capsule 300 mg PO Q12 5 Days Qty: 10 0RF albuterol sulfate 90 mcg/actuation HFA aerosol inhaler 1 puff inhalation Q6H PRN (Reason: shortness of breath or wheezing) Qty: 8.5 0RF prednisone 10 mg tablet 10 mg PO DAILY Qty: 32 0RF Rx Instructions: Take 4 tablets daily for 3 days then 3 tablets daily for 3 days then 2 tablets daily for 3 days then 1 tablet daily for 3 days then half tablet daily for 4 days Referrals / Follow Up: Care Physician,No Primary [Primary Care Provider] - Disposition Disposition (needs filled in before D/C Order can be placed): Home, Self Care Charges/Coding Visit Charges Inpatient E&M: 00237 Disch Hosp >30min
== END 2024-09-18 13:20 | disposition home or self-care (01) | DRG 190 ==
LOC: ED 12:45 → MS3 15:15
PROVIDERS: Internal Medicine; Physician Assistant; Admitting Provider Family Medicine; Emergency Provider Emergency Medicine; Referring Provider Family Medicine; Visit Provider Family Medicine
DX: J44.1 Chronic obstructive pulmonary disease with (acute) exacerbation (principal); J18.9 Pneumonia, unspecified organism; E43 Unspecified severe protein-calorie malnutrition; J44.0 Chronic obstructive pulmonary disease with (acute) lower respiratory infection; F10.10 Alcohol abuse, uncomplicated; F17.210 Nicotine dependence, cigarettes, uncomplicated; Z11.52 Encounter for screening for COVID-19; Z79.891 Long term (current) use of opiate analgesic; Z68.27 Body mass index [BMI] 27.0-27.9, adult; R09.02 Hypoxemia; R05.9 Cough, unspecified; Z87.820 Personal history of traumatic brain injury
CPT/HCPCS: 36415; 71045; 71046; 80048; 80053; 83605; 84145; 84484; 85025; 87040; 87070; 87205; 87449; 87631; 87633; 93005; 94640; 94668; 97802; 97803; 99252; 99284; A4216; G0463; J0696; J2405

== ENCOUNTER → 2024-12-31 | Outpatient (CLI) | payer MEDICARE, MEDICAID, SELFPAY ==
[2024-12-31 13:00] LABS: Absolute Lymphocyte Count 1.65 X10^3/uL (0.83-4.51); Absolute Neutrophil Count 5.6 X10^3/uL (2.0-7.7); Basophil% 1.2 % (0-1); Eosinophil# 0.51 X10^3/uL; Eosinophils% 6.1 % (0-5); Hematocrit 41.7 % (40-54); Hemoglobin 14.3 g/dL (13.0-16.5); Lymphocyte # 1.65 X10^3/ul (0.83-4.51); Lymphocyte % 19.9 % (19-41); Mean Corp Hgb Conc 34.3 g/dL (32-36); Mean Corpuscular Volume 90.5 fL (80-94); Mean Platelet Vol. 9.8 fl (6.2-12.0); Monocyte# 0.45 X10^3/uL; Monocyte% 5.4 % (0-10); NRBC Flagged by Analyzer 0 % (0-5); Neutrophil # 5.58 X10^3/uL (2.7-7.7); Neutrophil % 67.2 % (47-70); Platelet Count 302 K/mm3 (150-450); RBC Distribution Width CV 13.1 % (11.6-14.6); RBC Distribution Width SD 43.2 fl (35.1-43.9); Red Blood Count 4.61 M/mm3 (4.6-6.2); White Blood Count 8.3 K/mm3 (4.4-11.0)
[2024-12-31 13:19] LABS: Hemoglobin A1c 5.8 % (<=5.6)
[2024-12-31 13:51] LABS: ALB/GLOB Ratio 1.3 RATIO (0.9-2.4); AST(SGOT) 42 U/L (<=37); Alanine Aminotransfer ALT/SGPT 72 U/L (<=46); Albumin, Serum 3.9 g/dL (3.4-4.8); Alkaline Phosphatase 83 U/L (40-129); Anion Gap 11 (5-15); BUN 22 mg/dL (4-19); BUN/Creat Ratio 20.1 RATIO (10-20); Calcium,Total 9.3 mg/dL (7.6-11.0); Carbon Dioxide 21.7 mmol/L (21.0-32.0); Chloride 107 mmol/L (98-108); Cholesterol 156 mg/dL (<=200); Creatinine, Serum 1.07 mg/dL (0.70-1.20); EST Glomerular Filtration Rate 74 (>60); Globulin 3.1 g/dL (2.2-4.2); Glucose 149 mg/dL (70-99); High Density Lipoprotein 32 mg/dL; Low Density Lipoprotein Calc. 99 mg/dL; Magnesium 2.1 mg/dL (1.5-2.2); Potassium 3.9 mmol/L (3.3-5.1); Protein, Total 7.1 g/dL (5.9-8.4); Sodium Level 140 mmol/L (133-145); Total Bilirubin 0.35 mg/dL (0.00-1.30); Triglycerides 128 mg/dL; Very Low Density Lipoprotein 26 mg/dL (5-40); cholesterol:hdl ratio screen 4.94
== END | disposition home or self-care (01) ==
LOC: VSLAB 08:35
PROVIDERS: PCP Family Medicine; Visit Provider Family Medicine
DX: R60.0 Localized edema (principal)
CPT/HCPCS: 36415; 80053; 80061; 83036; 83735; 84443; 85025

== ENCOUNTER → 2025-01-07 | Outpatient (CLI) | payer MEDICARE, MEDICAID, SELFPAY ==
--- NOTE | 2025-01-07 08:29 | RAD_ITS ---
PROCEDURE: KNEE 4 OR MORE VIEWS 01/07/2025 REASON FOR EXAM: PAIN TECHNIQUE: Four views left knee COMPARISON: 05/30/2019 FINDINGS: No fracture, dislocation or evidence of joint effusion. There is now chondrocalcinosis noted at the medial compartment. The joint spaces appear within limits. RAD/Knee 4 or More Views IMPRESSION: There is now chondrocalcinosis seen in the medial compartment. Study otherwise appears within limits. Reading Location: [id number]
--- NOTE | 2025-01-07 08:30 | RAD_ITS ---
EXAM: LEFT TIBIA AND FIBULA CLINICAL HISTORY: Pain. COMPARISON: No relevant prior. TECHNIQUE: AP and lateral FINDINGS: Bones: No fractures or other osseous abnormalities. Joints: No subluxations or dislocations. Soft tissues: Unremarkable. RAD/Tibia & Fibula 2 Views IMPRESSION: No acute osseous abnormalities. Reading Location: [facility]
== END | disposition home or self-care (01) ==
PROVIDERS: PCP Family Medicine; Referring Provider Family Medicine; Visit Provider Family Medicine
DX: M79.662 Pain in left lower leg (principal)
CPT/HCPCS: 73564; 73590

== ENCOUNTER 2025-03-23 10:28 | Emergency (ER) | payer MEDICARE, MEDICAID, SELFPAY ==
[2025-03-23 10:28] VITALS: BP 164/108; PULSE 68; RESP 18; TEMP 36.4; O2SAT 95; BMI 27.2
[2025-03-23 10:41] VITALS: BP 145/109; PULSE 58; RESP 25; O2SAT 96
[2025-03-23 10:42] VITALS: O2SAT 94
--- NOTE | 2025-03-23 11:27 | RAD_ITS ---
PROCEDURE: CHEST PA AND LATERAL 03/23/2025 REASON FOR EXAM: COUGH TECHNIQUE: CHEST PA AND LATERAL COMPARISON: September 14, 2024 FINDINGS: There is cardiomegaly without overt CHF. There is no focal infiltrate or consolidation. There is no pneumothorax or effusion. Aortic calcifications are noted. Chronic left lower rib fractures and left clavicular fracture, are noted. Hardware is noted in the right clavicle, unchanged. Lumbar scoliosis is present. Surgical clips are noted in the right upper quadrant. RAD/Chest PA and Lateral IMPRESSION: There is cardiomegaly without overt CHF. Reading Location: [facility]
--- NOTE | 2025-03-23 11:30 | ED.VIS.DYS ---
HPI History of Present Illness Chief Complaint: Shortness of Breath Informant: patient Narrative Narrative: COPD no home oxygen in 10 days slight productive cough white in nature. Yesterday had a fever. Wheezing at home. None currently. Does have nebulizers. None needed today. Remote tobacco history. No chest pains no abdominal pain. No vomiting or diarrhea. No urinary symptoms. Prior similar symptoms: Yes PFSH PFSH Medical History History of alcohol abuse COPD (chronic obstructive pulmonary disease) TIA (transient ischemic attack) Angioma Tobacco use Gout History of hepatitis TBI (traumatic brain injury) Arthritis Home Medications ?Medication ?Instructions ?Recorded ?Last Taken ?Type azithromycin 250 mg tablet 250 mg PO DAILY #4 TABLETS 03/23/25 Unknown Rx prednisone 20 mg tablet 60 mg (3 x 20 mg) PO DAILY #12 03/23/25 Unknown Rx TABLETS Allergy/AdvReac Type Severity Reaction Status Date / Time codeine Allergy Hives Verified 03/23/25 10:32 hydrocodone bitartrate (From Allergy Hives Verified 03/23/25 10:32 Vicodin) Family History Mother No problems noted. Father No problems noted. Surgical History S/P craniotomy H/O shoulder surgery History of surgery on wrist Social History household members: none Smoking Status: Current every day smoker tobacco type: cigarettes alcohol intake: former details: Sober 42-43 years. substance use type: does not use ROS ROS ED Constitutional Constitutional ED: Reports fever(s); Denies chills or sweats ENT ENT ED: Denies sore throat Cardiovascular Cardiovascular: Denies chest pain, leg edema, palpitations or racing heartbeat Respiratory/Chest Respiratory/Chest: Reports cough and dyspnea; Denies dyspnea on exertion Gastrointestinal Gastrointestinal: Denies abdominal pain, diarrhea, nausea or vomiting Genitourinary Genitourinary ED: Denies dysuria, hematuria or urinary frequency Musculoskeletal Musculoskeletal: Denies back pain, extremity pain or neck pain Integumentary Denies rash or wounds Neurologic Neurologic: Denies headache(s), paresthesias or weakness EXAM Physical Exam Const Vital Signs: 03/23/25 10:28 03/23/25 10:41 03/23/25 10:42 Temperature 97.6 F L Temperature Source Oral Pulse Rate 68 58 L Respiratory Rate 18 25 H Respiratory Effort Non-Labored Respiratory Depth Normal Blood Pressure 164/108 H 145/109 H Blood Pressure Mean 126 121 Pulse Ox 95 96 Oxygen Delivery Method Room Air Room Air Room Air 03/23/25 12:28 Temperature Temperature Source Pulse Rate 61 Respiratory Rate Respiratory Effort Respiratory Depth Blood Pressure 145/109 H Blood Pressure Mean 121 Pulse Ox Oxygen Delivery Method Positive well nourished and well developed General Appearance ED: well developed and NAD HEENT Reports moist mucous membranes normocephalic and atraumatic Eyes General Eye ED: Yes normal appearance of both eyes Neck full ROM Chest Wall Chest: Negative for tenderness Resp normal respiratory effort and normal air movement Effort and Inspection: symmetric chest movement; Negative for respiratory distress Cardio regular rate, regular rhythm and no murmurs Peripheral Pulses: pulses 2+ throughout GI normal to inspection, nondistended, normoactive bowel sounds and non-tender Palpation: Negative for guarding or rebound tenderness present Extremity normal to inspection General Extremety ED: Negative for edema or tenderness General Extremity: Negative for edema Neuro oriented x3 and no sensory deficits noted Sensorium / Orientation: awake and alert Skin no rashes or lesions noted and no wounds MDM MDM MDM Narrative Medical decision making narrative: Interventions / MDM: Differential diagnosis: COPD exacerbation, bronchitis Diagnosis considered but do not suspect: Pneumonia however checks x-ray negative. My EKG interpretation: Sinus rate of 57, no ST changes ST T wave version aVL nonspecific. QTc 393. Imaging independently reviewed and interpreted by myself: 2 view chest x-ray: No acute process. Also read by radiology. External documents reviewed: N/A Test considered but not ordered:N/A ED course: Patient had a history cough mild sputum production. Reported fever yesterday. Afebrile here is no respiratory distress no wheezing pulse ox 96% on room air. I discussed with patient with his COPD history productive sputum changed from baseline treatment indication would be antibiotics steroids for his reported wheezing. For chest x-ray for which she would like to obtain the ED if however discussed treatment would not change. This is ordered per his request. 1255: Chest x-ray negative. Stable on reevaluation. Continue steroids and antibiotics. Outpatient follow-up with his doctor. All questions were answered. Re-evaluation: stable Disposition discussed with patient/family/significant other: Patient Case discussed with consulting clinician: N/A This note was generated with [employer] dictation software. It may contain incorrect words, spelling, and punctuation that were not noted in checking the note before signing. Radiography Diagnostic Testing: Clinical Impression(s) from Imaging Studies Chest X-Ray 03/23/25 11:27 IMPRESSION: There is cardiomegaly without overt CHF. Reading Location: [facility] Discharge Plan Triage Chief Complaint: Shortness of Breath ED Provider: Matt Cha Dx/Rx/DC Orders Clinical Impression: Chronic obstructive pulmonary disease with (acute) exacerbation, Bronchitis Instructions: ED COPD Flare Prescriptions: New azithromycin 250 mg tablet 250 mg PO DAILY Qty: 4 0RF prednisone 20 mg tablet 60 mg PO DAILY Qty: 12 0RF Primary Care Provider: Marion Chaves Referrals: Mairon Chaves, DO [Primary Care Provider] - 1-2 Weeks Activity Restrictions/Additional Instructions: EKG normal and chest x-ray negative. Take antibiotic and steroid as prescribed. Use your nebulizer treatments at home as needed for wheezing. Follow-up with your doctor. Print Language: Guamanian Disposition Disposition: Home, Self Care
--- NOTE | 2025-03-23 11:31 | EKG12_ITS ---
Test Reason : CP Blood Pressure : */* mmHG Vent. Rate : 57 BPM Atrial Rate : 57 BPM P-R Int : 196 ms QRS Dur : 54 ms QT Int : 404 ms P-R-T Axes : * -22 44 degrees QTcB Int : 393 ms Sinus bradycardia Inferior infarct , age undetermined Abnormal ECG Confirmed by Francisco Jerry ([id number]), development editor JOHN WAYNE ([id number]) on 03/24/2025 1:17:18 PM Referred By: TL/UG Confirmed By: Francisco Jerry
[2025-03-23 12:28] VITALS: BP 145/109; PULSE 61
[2025-03-23 13:05] VITALS: BP 145/109; PULSE 61; RESP 25; TEMP 36.4; O2SAT 96
== END 2025-03-23 13:08 | disposition home or self-care (01) ==
PROVIDERS: Emergency Provider Emergency Medicine; PCP Family Medicine; Visit Provider Emergency Medicine
DX: J44.1 Chronic obstructive pulmonary disease with (acute) exacerbation (principal); J40 Bronchitis, not specified as acute or chronic; F17.210 Nicotine dependence, cigarettes, uncomplicated
CPT/HCPCS: 71046; 93005; 99282